=== PATIENT | female | born 1940 | race Caucasian/White ===

== ENCOUNTER → 2017-07-18 15:27 | Outpatient (CLI) | payer SELFPAY ==
--- NOTE | 2017-07-18 15:34 | RAD_ITS ---
STUDY: X-RAY - PELVIS AND LEFT HIP REASON FOR EXAM: Female, 77 years old. Pain TECHNIQUE: Radiological exam, hip, unilateral, with pelvis when performed; 2 or 3 views. 3 views obtained. COMPARISON: None. FINDINGS: There is a non-specific bowel gas pattern. Normal visualized soft tissue structures. There is diffuse demineralization of the osseous structures. There is narrowing with cortical sclerosis and osteophyte formation of the sacroiliac joint consistent with degenerative osteoarthritic changes. Normal bilateral superior and inferior pubic rami. Normal pubic symphysis. Normal bilateral ischial tuberosities. There are osteoarthritic changes of the femoral head with marginal osteophyte formation. Normal acetabulum. is severe articular joint space narrowing of the hip. Extra articular calcifications noted adjacent to the greater trochanter, likely sequela from previous trauma. Arthritic changes also noted in the right hip but they are not as severe as those noted in the left. RAD/Hip 2-3 Views with Pelvis IMPRESSION: Diffuse demineralization of the osseous structures with severe left hip arthrosis and age consistent right hip and SI joint arthrosis. No demonstrated fracture or suspicious osseous lesion. However, hip and pelvic fractures in patients of this age can be subtle, if there is strong clinical concern of a fracture, recommend further evaluation with CT Electronically Signed: Davon Rogel MD at 8:57 EDT , Service support ,
--- NOTE | 2017-07-18 15:35 | RAD_ITS ---
STUDY: X-RAY - LEFT FEMUR REASON FOR STUDY: Female, 77 years old. Pain TECHNIQUE: Radiological exam, femur, minimum 2 views 5 views obtained COMPARISON: None. FINDINGS: Normal visualized femur. Extra articular calcifications noted adjacent to the greater trochanter of the femur likely sequela from previous trauma.There is no demonstrated fracture or destructive process. There are atherosclerotic vascular calcifications. RAD/Femur Min 2 Views IMPRESSION: Degenerative changes no demonstrated fracture or suspicious osseous lesion Electronically Signed: Davon Rogel MD at 8:56 EDT , Service support ,
== END ==
PROVIDERS: Family Provider Family Medicine; PCP Family Medicine; Visit Provider Family Medicine
DX: M79.605 Pain in left leg (principal); M25.552 Pain in left hip
CPT/HCPCS: 73502; 73552

== ENCOUNTER → 2017-08-04 08:50 | Outpatient (CLI) | payer SELFPAY ==
--- NOTE | 2017-08-04 08:56 | CT_ITS ---
STUDY: CT LEFT HIP WITHOUT CONTRAST REASON FOR EXAM: Female, 77 years old. Left groin pain and left hip pain since March. No known injury. RADIATION DOSAGE (If Supplied By Facility): CTDIvol = ( 35.43 ) mGy, DLP = ( 1043.72 ) mGycm TECHNIQUE: Transaxial imaging of the left hemipelvis was performed without oral contrast, and without intravenous administration of contrast material. Coronal and sagittal images of the hip were constructed. Individualized dose optimization techniques were used for this CT. COMPARISON: None. FINDINGS: There is moderate to severe left hip joint space narrowing. There is prominent osteophyte formation arising from the base of the left femoral head. There is osteophytic spurring of the left acetabulum as well as mild sclerosis of the superior articular surface. No demonstrated fracture or destructive bone lesion involving osseous structures of the visualized left hemipelvis. There is no demonstrated diastases of the left sacroiliac joint or the pubic symphysis. There is a 6.4 x 1.7 x 1.7 cm low-attenuation structure centrally located within the belly of the left iliopsoas muscle, possibly representing intramuscular hematoma or seroma. There are dystrophic soft tissue calcifications within subcutaneous fat of the left buttocks region. There are atherosclerotic calcifications of the distal abdominal aorta and visualized left iliac arteries. CT/Extremity Lower without Contra IMPRESSION: Intramuscular hematoma or seroma of the left iliopsoas muscle. 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 Electronically Signed: Lj Jose MD at 7:41 EDT , Service support ,
== END ==
PROVIDERS: Family Provider Family Medicine; PCP Family Medicine; Visit Provider Family Medicine
DX: M16.12 Unilateral primary osteoarthritis, left hip (principal)
CPT/HCPCS: 73700

== ENCOUNTER → 2018-01-14 12:48 | Outpatient (CLI) | payer SELFPAY ==
[2018-01-02 14:46] VITALS: BMI 31.8
--- NOTE | 2018-01-14 12:49 | ECHOD_ITS ---
Reason For Study: Pre Op Procedure This was a 2D Doppler, Color Flow transthoracic echocardiogram. Exam performed in department. Left Ventricle Normal LV size. Left ventricular systolic function is normal. The estimated ejection fraction is 65 %. Stage 1 diastolic dysfunction. No regional wall motion abnormalities noted. Right Ventricle Normal RV size. Normal systolic function. Atria The left atrium is mildly enlarged. Normal right atrium. Mitral Valve Normal mitral valve. Mild-Moderate (1-2+) eccentric mitral valve insufficiency. Tricuspid Valve Normal tricuspid valve. Mild tricuspid valve insufficiency. Pulmonary artery systolic pressure is 38 mmHg. Aortic Valve Trisinus/trileaflet aortic valve. Mild focal aortic valve calcification. Peak aortic valve gradient 41 mmHg. Mean aortic valve gradient 19 mmHg. Mild to moderate aortic stenosis. Calculated aortic valve area (continuity equation) is 1.1 cm2. Pulmonic Valve Normal pulmonic valve. Great Vessels Normal aortic root. The pulmonary artery is normal size. Normal inferior vena cava. Pericardium/Pleural No pericardial effusion. MMode/2D Measurements & Calculations LVIDd: 3.8 cm IVSd: 0.91 cm LVOT diam: 2.0 cm LVIDs: 2.2 cm LVPWd: 1.0 cm LVOT area: 3.0 cm2 RVDd: 2.9 cm FS: 41.7 % Ao root diam: 3.4 cm LAV(MOD-bp): 68.4 ml Aortic Valve Planimetry: 1.5 cm2 ACS: 1.1 cm LAV(MOD-bp) Indexed: 39.1 ml/m2 LA dimension: 3.8 cm LAV(MOD-sp2): 75.1 ml LAV(MOD-sp4): 61.4 ml LA A4 area: 21.3 cm2 RA A4 area: 17.6 cm2 Time Measurements MV dec time: 0.20 sec Doppler Measurements & Calculations MV E max zay: 101.9 cm/sec Lat Peak E' Zay: 12.6 cm/sec Med Peak E' Zay: 7.9 cm/sec MV A max zay: 111.6 cm/sec E/E' lat: 8.1 E/E' med: 12.9 MV E/A: 0.91 MV V2 max: 111.7 cm/sec MV P1/2t max zay: 111.7 cm/sec Ao V2 max: 323.3 cm/sec MV max P.0 mmHg MV P1/2t: 108.6 msec Ao max P.8 mmHg MV V2 mean: 62.9 cm/sec MV dec slope: 301.4 cm/sec2 Ao V2 mean: 194.8 cm/sec MV mean P.8 mmHg Ao mean P.6 mmHg MV V2 VTI: 43.1 cm MVA(P1/2t): 2.0 cm2 Ao V2 VTI: 70.3 cm MVA(VTI): 2.0 cm2 RISHABH(I,D): 1.2 cm2 RISHABH(V,D): 1.1 cm2 LV V1 max: 119.2 cm/sec MR max zay: 626.2 cm/sec SV(LVOT): 87.3 ml LV V1 max P.7 mmHg MR max P.8 mmHg LV V1 mean P.9 mmHg MR mean zay: 522.8 cm/sec LV V1 mean: 78.6 cm/sec MR mean P.1 mmHg LV V1 VTI: 28.9 cm MR VTI: 244.6 cm PA V2 max: 111.7 cm/sec TR max zay: 293.1 cm/sec TR max P.4 mmHg Interpretation Summary Normal LV size. Left ventricular systolic function is normal. The estimated ejection fraction is 65 %. Stage 1 diastolic dysfunction. The left atrium is mildly enlarged. Mild-Moderate (1-2+) eccentric mitral valve insufficiency. Mild tricuspid valve insufficiency. Mild to moderate aortic stenosis. Calculated aortic valve area (continuity equation) is 1.1 cm2. Ordering Physician: Abundio Juarez Referring Physician: Abundio Juarez Performed By: Osito Dill RCS
== END ==
PROVIDERS: Family Provider Family Medicine; PCP Family Medicine; Referring Provider Family Medicine; Visit Provider Family Medicine
DX: Z01.810 Encounter for preprocedural cardiovascular examination (principal); R01.1 Cardiac murmur, unspecified
CPT/HCPCS: 93306

== ENCOUNTER 2018-01-22 07:41 | Inpatient (IN) | payer SELFPAY ==
[2018-01-02 14:46] VITALS: BMI 31.8
--- NOTE | 2018-01-14 12:59 | PCM.HP.BLA ---
History and Physical DATE OF SURGERY: 01/22/2018 SCHEDULED PROCEDURE: Left Total Hip Arthroplasty HISTORY OF PRESENT ILLNESS: This is a 77-year-old female who has been having ongoing pain in her left hip since March 2017. Patient states her pain reaches high as an 8/10. Pain is primarily increased with weightbearing. She does have start up pain. Pain is sharp and stabbing. She does complain of left groin pain. Also complains of anterior thigh pain. Pain is increased walking. Patient has difficult time with activities of daily living including getting dressed and doing housework. Patient has been through conservative measures consisting of rest, heat, elevation with no relief. Patient has had 1 previous intra-articular left hip injection with no relief in symptoms. Patient has a medical history pertinent for hypertension. She denies previous surgery on the left hip. She has been using a cane and walker due to the left hip pain. Patient currently is getting surgical clearance from her primary care physician Dr. Juarez. She is scheduled to get an echocardiogram. Patient currently denies chest pain, shortness of breath, fevers chills, or recent infection. REVIEW OF SYSTEMS: ROS: Const: Denies change in appetite, fever and weight change. CV: Denies chest pain, heart murmur and irregular heartbeat. Resp: Denies cough, pneumonia, shortness of breath, tuberculosis and wheezing. GI: Denies constipation, diarrhea, heartburn, nausea, rectal itching, bloody stools and vomiting. : Denies incontinence. Musculo: Denies leg swelling, pain, trouble walking and weakness. Skin: Denies Raynaud's, history of shingles and tattoo. Neuro: Reports ambulatory dysfunction but denies dizziness, numbness/tingling and tremor. Psych: Denies anxiety, insomnia and stress. Duy/Lymph: Denies anemia, bleeding/bruising tendency and past transfusion. Reviewed, no changes. PAST MEDICAL HISTORY: Advance Care Plan: No Advance Directives Effective Date: 12/17/2017 PMH: Medical Problems: High Blood Pressure Accidents: None Surgical Hx: Hernia Repair Anesthesia Complications: None Assistive Devices: Dentures, Glasses, Cane Reviewed, no changes. SOCIAL HISTORY: SH: Marital: .Occupation: Retired.Work Status: Retired.Hand Dominance: Right-handed. Personal Habits: Cigarette Use: Never Smoked Cigarettes.Smokeless Tobacco: Never Used Smokeless Tobacco.E-Cigarette Use: Smoker, current status unknow.Alcohol: Denies use.Drug Use: Denies Use.Enjoy Exercising: Daily. Reviewed, no changes. VITALS: Ht: 56.5 Wt: 158lb Wt k.669 BMI: 34.8 BP: 138/84 Pulse: 60 Resp: 16 T: 97.6 T: 36.4C ALLERGIES: No Known Drug Allergy MEDICATIONS: Lisinopril 5 mg 1po qday, Beta Carotene 37247 Unit 1po qday, Vitamin E 400 Unit 1po qday, B Complex 1po qday, Coq10 60 mg 1po qday, Calcium 600 600 mg 1po qday, Magnesium 200 mg 1po qday, Potassium 99 mg 1po qday, Vitamin D3 2000 Unit 1po qday PRE-OP EXAM: General appearance:NORMAL Other: Eyes: Conjunctivae and lids: NORMAL Pupils: ERR Ears, Nose, Mouth, and Throat: NORMAL Other: Inspection of lips, teeth and gums: NORMAL Other: Neck: Examination of neck: no masses noted. Respiratory: Assessment of respiratory effort: NORMAL Other: Auscultation of lungs: clear to auscultation no wheezes, rhonchi or rales. Cardiovascular: Auscultation of heart: regular rate and rhythm, systolic murmur Exam of carotid arteries: NORMAL Other: Gastrointestinal: Exam of abdomen: soft, nontender, nondistended bowel sounds present. PHYSICAL EXAMINATION: Patient walks with an antalgic gait. Left hip is cool to touch without erythema. Left hip range of motion: 90 flexion, 10 internal rotation, external rotation 10. Pain is reproduced with range of motion of the left hip. She has 3+/5 hip strength. Sensation intact to light touch. Neurovascularly intact. IMAGING STUDIES: Of the left hip reveal severe joint space narrowing with subchondral sclerosis and osteophyte formation consistent with severe osteoarthritis and femoral head collapse and flattening. There is a short varus neck. This calcifications lateral to the greater trochanter. CT scan from [facility] shows severe joint space narrowing with subchondral sclerosis and osteophyte formation. Calcifications in the subcutaneous fatty tissue lateral to the greater trochanter on CT scan appear to be superficial to the fascia IMPRESSION: 1. Severe left hip osteoarthritis 2. Hypertension PLAN: Dr. Rodriguez Shaikh did discuss and review with the patient all treatment options including surgical versus nonsurgical options. Patient does wish to proceed with the above-stated procedure. Potential risks, benefits, and complications of the procedure were discussed in detail including but not limited to , infection, nerve and blood vessel damage, persistent pain, numbness, tingling, paresthesias, blood clot, pulmonary embolism, and requirement for possible further surgery. The patient expressed full understanding and has no further questions for the doctor. Patient does agree to proceed with the above-stated procedure and has signed the surgery consent form. Patient is currently scheduled to undergo an echocardiogram and preoperative testing. Clearance will be dependent upon patient's echocardiogram. She currently denies any chest pain or shortness of breath. This dictation was created using voice recognition software. Phonetic and/or grammatical errors may exist.. ___ I have re-examined the patient. There are no clinical changes since date of exam. ___ See progress notes for changes. ___ Dictated on admission Date: Time: Signature:
[2018-01-14 14:33] VITALS: BP 143/71; PULSE 68; RESP 16; TEMP 36.6; O2SAT 98; BMI 35.4
--- NOTE | 2018-01-14 15:14 | SDCEKG_ITS ---
Test Reason : Blood Pressure : / mmHG Vent. Rate : 057 BPM Atrial Rate : 057 BPM P-R Int : 178 ms QRS Dur : 096 ms QT Int : 444 ms P-R-T Axes : 059 016 049 degrees QTc Int : 432 ms Sinus bradycardia Nonspecific ST and T wave abnormality Abnormal ECG Confirmed by RENEE RAMOS, IVON ([id number]), purchasing expeditor JESSICA ALVARADO ([id number] on 01/18/2018 10:49:48 AM Referred By: Rodriguez Shaikh Confirmed By:IVON DURAN MD
[2018-01-14 15:43] LABS: Absolute Lymphocyte Count 1.64 X10^3/ul (0.83-4.51); Absolute Neutrophil Count 3.5 X10^3/uL (2.0-7.7); Basophil# 0.05 X10^3/uL; Basophil% 0.9 % (0-1); Eosinophils% 3.4 % (0-5); Hematocrit 36.5 % (37-47); Hemoglobin 12.2 g/dl (12.0-15.0); Lymphocyte # 1.64 X10^3/ul (4.0); Lymphocyte % 27.9 % (19-41); Mean Corp Hgb Conc 33.4 g/gl (32-36); Mean Corpuscular Hgb 29.8 pg (27.0-32.0); Mean Corpuscular Volume 89.2 fL (81-99); Mean Platelet Vol. 10.4 fl (6.2-12.0); Monocyte# 0.53 X10^3/uL; Neutrophil # 3.45 X10^3/uL (2.7-7.7); Neutrophil % 58.6 % (47-70); Platelet Count 210 K/mm3 (150-450); RBC Distribution Width CV 12.3 % (11.6-14.6); RBC Distribution Width SD 39.7 fl (35.1-43.9); Red Blood Count 4.09 M/mm3 (4.2-5.4); White Blood Count 5.9 K/mm3 (4.4-11.0)
[2018-01-14 16:09] LABS: POSITIVE COUNT NO; POSITIVE DIFFERENTIAL NO; POSITIVE MORPHOLOGY NO
[2018-01-14 16:25] LABS: Anion Gap 4 (5-15); BUN 14 mg/dL (7-18); BUN/Creat Ratio 20.4 RATIO (10-20); Calcium,Total 8.7 mg/dL (8.5-10.1); Chloride 102 mmol/L (98-107); Creatinine, Serum 0.68 mg/dL (0.55-1.02); EST Glomerular Filtration Rate 88 mL/min (>60); Est Glom Filt Rate - Afr Amer 106 mL/min (>60); Glucose 102 mg/dL (74-106); Potassium 3.5 mmol/L (3.5-5.1); Sodium Level 138 mmol/L (136-145)
[2018-01-22] VITALS (10 sets, daily range): BP systolic 104–197; BP diastolic 63–90; PULSE 55–90; RESP 16–18; TEMP 36.2–37.2; O2SAT 95–100; BMI 35.4
--- NOTE | 2018-01-22 07:09 | RAD_ITS ---
STUDY: X-RAY - LEFT HIP REASON FOR EXAM: Female, 77 years old. Status post left total hip replacement. TECHNIQUE: 2 views of the hip. COMPARISON: None. FINDINGS: The patient is status post left total hip replacement. There is normal alignment. Postoperative soft tissue changes. RAD/Hip Min 2 Views (Portable) IMPRESSION: Status post left total hip replacement. There is good alignment. Postoperative soft tissue changes. Electronically Signed: Delvin Paz MD at 15:13 EST Tel [phone], Service support ,
[2018-01-22] MEDS: Celecoxib 200 MG Capsule 400 MG PO (08:22)
[2018-01-22] MEDS: Acetaminophen 500 MG Tablet 1000 MG PO ×3 (08:23→21:47)
--- NOTE | 2018-01-22 08:29 | PCM.OPRPT ---
Report of Operation Date of Procedure: 01/22/18 Pre-Operative Diagnosis: Left hip primary osteoarthritis Post-Operative Diagnosis: Left hip primary osteoarthritis Surgery/Procedure Performed:: Left direct anterior total hip replacement Description of Surgical Findings:: Stable hip with equal leg lengths social media marketer: Will Wagner Type of Anesthesia:: Spinal Anesthesiologist: Ranjit Arteaga Special Medications: 2 g Ancef, 1 g TXA at incision, 1 g TXA closure, 10 mg Decadron, joint cocktail (5 mg Duramorph, 30 mL of 0.5% Ropivicaine, 1000 units of epinephrine, 30 mg of Toradol) Specimen's removed: Bony cuts Estimated Blood Loss (mL): 200 Fluids Replaced: 600 milliliters crystalloid Description of Procedure: Components used: 1. Accolade 2 [place] femoral stem size 6 127? 2. Phenix trident acetabular shell size 48 mm 3. [place] X3 polyethylene D 4. [place] Biolox delta 36mm, -2.5mm femoral head Brief history operative indications: 77 yo F who failed conservative measures for their hip osteoarthritis. X-rays were consistent with osteoarthritis including joint space narrowing, osteophyte formation and subchondral cysts. Total hip replacement was discussed with the patient with risks and benefits including but not limited to blood loss, DVTs, PEs, neurovascular damage, dislocation, general risks of anesthesia including loss of life. Patient demonstrated an understanding medical clearance is obtained the patient was consented for surgery. Procedure: On the date of procedure the patient's L hip was marked in the preoperative area. Patient was then taken back to the operating room where anesthesia assumed control of the C-spine and airway and administered anesthetic. Patient was transferred to the operating table and placed in the supine position. The hips were placed at the break of the bed and a sacral bump was placed. The L lower extremity was then prepped out in a sterile fashion using chlorhexidine while the surgeon scrubbed. The PA was vital in the positioning of the patient. Upon reentering the room the L lower extremity was draped in the standard orthopedic fashion and the incision was marked. A timeout was called and everyone agreed upon the side, the site, the procedure be performed, antibody given, and patient's identity. At this time incision was made through skin, subcutaneous tissue, and fat down to fascia. The fascia was then incised and the TFL was retracted laterally. A retractor was placed on the lateral border of the femoral neck. Attention was directed to the inferior portion of the approach and all crossing vessels were identified and appropriately coagulated. A retractor was then placed on the medial portion of the femoral neck. The anterior capsule was then cleared of all soft tissue and then H shaped capsulotomy was made. The retractors were then placed inside the capsule. The femoral neck was identified and a cleanup cut was made. At this time a power corkscrew was used to remove the femoral head. Attention was then turned toward the acetabulum where the soft tissues were appropriately retracted and the acetabulum was sequentially reamed to 48 mm. A 48 mm cup was then selected and impacted into place. Acetabular liner was impacted into place and locking mechanism was verified. The position of the acetabular cup was then verified under live fluoroscopy. We are not able to readily identify the calcified area upon approach superior to the femoral neck on preoperative x-rays. Upon checking the cup we were able to identify this area was in the area of the abductors. It appeared to be a portion of the calcified abductor tendon or muscle. We elected not to debride it at this time. It was palpated and not feel to be a free bone fragment/free body. Attention was then turned to the femur. Soft tissue releases on the medial and lateral femoral neck were appropriately done, the leg was externally rotated and lateralized. A Barillas retractor was placed medially and proximally to the greater trochanter this allowed appropriate visualization and exposure of the femoral canal. Rongeour was then used to remove excess lateral bone. A canal finder and entry broach were used to open the proximal canal. Once we verified we were down the femoral canal we subsequently broached up to a size 5 femur. The appropriate neck was placed in the previously selected head was trialed with a -2.5 mm neck. Traction was pulled and the hip was reduced with internal rotation. Once it was appropriately reduced and stability was checked. There was minimal shuck, equal leg lengths and appropriate stability with hyperextension and external rotation as well as with 90? flexion and internal rotation. Fluoroscopy was then also used to verify the position of the components and leg lengths using the contralateral side for comparison. The trial components were then dislocated the proximal femur was again exposed and the components were removed from the wound. The final components were verified and opened. The wound was copiously irrigated out with normal saline. The acetabulum was checked for any residual debris. The final components were placed and impacted. Traction and internal rotation were again used to reduce the hip. After adequate reduction the hip remained stable with appropriate leg lengths. The final components were once again checked with live fluoroscopy and were found to be satisfactory. The wound was then copiously irrigated with normal saline once more, and hemostasis was obtained. Closure was then done using #1 Vicryl runner to close the fascia. A 2-0 vicryl interuppted sutures were used to close the subcutaneous skin. A 3-0 Monocryl and Steri-Strips were used for final skin closure. A Silverlon dressing was placed. Patient was awakened by anesthesia and transferred to the rmaud. Patient was then transferred to the PACU for recovery. Postoperative plan: Patient will get 24 hours postop antibiotics. Patient will get in-house physical therapy and will be weight-bear as tolerated. Patient will follow up in office in 2 weeks for a wound check and x-rays. During the course of the procedure the physician physician assistant psychiatry played a vital role. His intimate knowledge of my steps in the procedure aided in safe and expedient completion of the procedure. The PA played a vital rolls in positioning particularly in obtaining the appropriate positioning of the sacral bump. The PA was also vital in the retraction of soft tissues during the exposure and especially the femoral work as this is a vital part of the procedure to prevent complications and fractures. The PA was also vital and protecting soft tissues during times of bony cuts and reaming. He also played a vital role in closure with my direct supervision. The PA was also important during reduction and dislocation of the joint and trials intraoperatively. Grafts/Implants Used: Accolade 2, Trident 2 - Complications None - Admit VTE Documentation VTE Present on Admission: No VTE Mechan Device Prophylaxis: SCD's, Thigh High YUKI Hose VTE Pharm Prophylaxis ordered?: Yes
[2018-01-22] MEDS: Lactated Ringers 1,000 ML 999 ML IV (08:50)
[2018-01-22] MEDS: Cefazolin 2 GM in 0.9% Normal Saline 100 ML IV (09:28)
--- NOTE | 2018-01-22 09:45 | RAD_ITS ---
STUDY: X-RAY - LEFT HIP REASON FOR EXAM: Female, 77 years old. Total hip arthroplasty. TECHNIQUE: Fluoroscopic assistance was provided to Dr. Shaikh. 1 fluoroscopic spot view of the hip is submitted. FLUOROSCOPY TIME: 8 seconds. COMPARISON: AP pelvis and 2 additional views of the left hip July 18, 2017. FINDINGS: Patient has undergone left total hip arthroplasty. Following resection of the femoral head and neck, a metal bipolar hip prosthesis was placed. The acetabular and femoral components appear well seated, and in anatomic alignment. Gas lucencies overlapping the hip are consistent with the surgical wound. There is no demonstrated acute fracture. Normal visualized superior and inferior pubic rami and ischial tuberosities. RAD/Hip 1 view with Pelvis IMPRESSION: Fluoroscopic guidance for left total hip arthroplasty. Electronically Signed: Delvin Paz MD at 8:25 EST Tel [phone], Service support ,
[2018-01-22] MEDS: Scopolamine 1mg/72hr Patch 1 PATCH TD (11:41)
[2018-01-22] MEDS: Lactated Ringers 1,000 ML 125 ML IV ×2 (13:10→21:52)
[2018-01-22] MEDS: Calcium (Elemental) 500 MG Tablet PO (14:15)
[2018-01-22] MEDS: hydroCHLOROthiazide 12.5mg 12.5 MG PO (14:15)
[2018-01-22] MEDS: Famotidine 20 MG Tablet PO (14:15)
[2018-01-22] MEDS: Lisinopril 20 MG Tablet PO (14:16)
[2018-01-22] MEDS: Senna/Docusate Sodium 1 Tablet 2 TABLET PO ×2 (14:16→21:47)
[2018-01-22] MEDS: Aspirin 81 MG TAB.CHEW PO (17:09)
[2018-01-22] MEDS: oxyCODONE 5 MG Tablet PO ×2 (17:10→21:52)
[2018-01-22] MEDS: Cefazolin 1 GM/50 ML BAG IV (17:12)
[2018-01-23] MEDS: Cefazolin 1 GM/50 ML BAG IV (01:18)
[2018-01-23 03:00] VITALS: BP 138/82; PULSE 87; RESP 16; TEMP 37.1; O2SAT 98
[2018-01-23 05:39] LABS: Hematocrit 30.6 % (37-47); Hemoglobin 10.3 g/dl (12.0-15.0); Mean Corp Hgb Conc 33.7 g/gl (32-36); Mean Corpuscular Hgb 29.9 pg (27.0-32.0); Mean Corpuscular Volume 88.7 fL (81-99); Mean Platelet Vol. 10.5 fl (6.2-12.0); Platelet Count 171 K/mm3 (150-450); RBC Distribution Width CV 12.5 % (11.6-14.6); RBC Distribution Width SD 39.3 fl (35.1-43.9); Red Blood Count 3.45 M/mm3 (4.2-5.4); White Blood Count 11.4 K/mm3 (4.4-11.0)
[2018-01-23] MEDS: oxyCODONE 5 MG Tablet PO (05:57)
[2018-01-23] MEDS: Acetaminophen 500 MG Tablet 1000 MG PO ×2 (05:57→13:19)
[2018-01-23 05:59] LABS: Scan Indicated on CBC? Y/N NO
[2018-01-23 06:01] LABS: Anion Gap 10 (5-15); BUN 13 mg/dL (7-18); Calcium,Total 8.2 mg/dL (8.5-10.1); Chloride 99 mmol/L (98-107); Creatinine, Serum 0.68 mg/dL (0.55-1.02); EST Glomerular Filtration Rate 88 mL/min (>60); Est Glom Filt Rate - Afr Amer 106 mL/min (>60); Glucose 112 mg/dL (74-106); Potassium 3.7 mmol/L (3.5-5.1); Sodium Level 136 mmol/L (136-145)
--- NOTE | 2018-01-23 06:37 | PCM.PN.ORT ---
Subjective: The patient was sitting in bedside chair upon examination. Patient denies any chest pain, shortness of breath, dizziness, lightheadedness, nausea or vomiting, or calf pain. Pain is controlled on medications. No adverse overnight events. Overall patient is doing very well. Patient is requesting to go home today. Nursing states patient has been doing well. Objective: Vital signs stable and afebrile. Patient is able to plantarflex and dorsiflex actively. Sensation is intact to light touch to saphenous, sural, superficial and deep peroneal, and tibial distribution. Dressing is clean dry and intact. Negative Homans bilaterally, negative signs and symptoms of DVT. - Physical Exam General: Alert, Oriented x3, Cooperative, No apparent distress Vital Signs Temp Pulse Resp BP Pulse Ox 98.7 F 87 16 138/82 H 98 01/23/18 03:00 01/23/18 03:00 01/23/18 03:00 01/23/18 03:00 01/23/18 03:00 Oxygen Delivery Method Room Air Weight: 72.9 kg Body Mass Index (BMI) 35.4 Intake and Output for Last 24 Hours 01/21/18 01/22/18 01/23/18 23:59 23:59 23:59 Intake Total 2830 / 2830 2254 / 2254 Output Total 200 / 200 700 / 700 Balance 2630 / 2630 1554 / 1554 Laboratory Tests Past 24 Hrs 01/23/18 01/23/18 05:10 05:10 WBC 11.4 H RBC 3.45 L Hgb 10.3 L Hct 30.6 L MCV 88.7 MCH 29.9 MCHC 33.7 RDW 12.5 RDW Differential 39.3 Plt Count 171 MPV 10.5 Sodium 136 Potassium 3.7 Chloride 99 Carbon Dioxide 27.0 Anion Gap 10 BUN 13 Creatinine 0.68 Estim Creat Clear Calc 52.50 Est GFR (MDRD) Af Amer 106 Est GFR (MDRD) Non-Af 88 BUN/Creatinine Ratio 19.0 Glucose 112 H Calcium 8.2 L Medical Necessity - Tobacco Use Smoking Status: Never smoker Assessment/Plan 1. S/P left direct anterior total hip arthroplasty POD #1 2. Continue Pain Medications: Tylenol and OxyIR 3. DVT Prophylaxis: Aspirin 81 mg twice daily with food for 4 weeks postoperatively 4. PT/OT: Weightbearing as tolerated 5. H & H: 10.3/30.6, asymptomatic 6. Reactive leukocytosis: Currently 11.4, afebrile. Patient did receive Decadron intraoperatively 7. Encouraged Incentive Spirometry 8. Disposition: Plan is for possible discharge home today if pain is controlled and patient tolerates physical therapy. Prescriptions will be E scribed to patient's primary pharmacy. Patient will follow-up per postop instructions.
--- NOTE | 2018-01-23 06:45 | PCM.DC.THR ---
Discharge Activity: May Not Drive - while taking narcotic pain medications. May shower in (days): 1 - Turned dressing away from water Ice area for (Minutes): 20 - Every 1-2 hours while awake Weight Bearing Status: Weight bearing as tolerated Elevate: Operative Extremity Additional Activity Instructions:: Wear elastic stockings for 2 weeks. DO NOT use alcohol with narcotic pain medication. DO NOT make important decisions while taking narcotic medication. If you have problems with taking your medication (rash, itching, nausea, etc.) call the office at once. Call your doctor if your incision/area has: Increased Pain/ Swelling, Increased Redness, Foul Smelling Discharge Call your doctor if you observe: Fever of 101 or Higher Remove Dressing in (days):: 4 - Okay to remove dressing on January 27, 2018 Additional Instructions: Follow [facility] postop instructions Do not take [id number] vitamins and supplements for the next 2 weeks. Do not take any anti-inflammatories while on the meloxicam. Allergies/Adverse Reactions: Allergies No Known Allergies Allergy (Verified 01/14/18 14:18) Medications to take at Discharge Amlodipine Besylate [Norvasc] 2.5 mg PO DAILY 01/14/18 Calcium (Elemental) [Os-Gibson 500] 600 mg PO DAILY 01/14/18 Cholecalciferol (VIT D3) [Vitamin D3] 2,000 unit PO DAILY 01/14/18 Lisinopril/Hydrochlorothiazide [Zestoretic 20-12.5 mg Tablet] 1 tab PO DAILY 01/14/18 Magnesium 200 mg PO DAILY 01/14/18 Potassium (Otc) [Potassium OTC] 99 mg PO DAILY 01/14/18 Acetaminophen [Tylenol] 1,000 mg PO Q8 #90 tablet 01/23/18 Aspirin [Aspirin, Baby] 81 mg PO BIDCM #60 tab.chew 01/23/18 Famotidine [Pepcid] 20 mg PO DAILY #30 tablet 01/23/18 Meloxicam [Mobic] 7.5 mg PO BID #60 tablet 01/23/18 Oxycodone [Oxyir] 5 - 10 mg PO Q4H PRN PRN 5 Days #60 tablet 01/23/18 Senna/Docusate Sodium [Senokot-S] 2 tablet PO BID #20 tablet 12/19/18 The following prescriptions were given: Oxycodone [Oxyir] 5 - 10 mg PO Q4H PRN PRN 5 Days #60 tablet PRN Reason: Mod-Severe Pain (-11/14) Acetaminophen [Tylenol] 1,000 mg PO Q8 #90 tablet Famotidine [Pepcid] 20 mg PO DAILY #30 tablet Aspirin [Aspirin, Baby] 81 mg PO BIDCM #60 tab.chew Meloxicam [Mobic] 7.5 mg PO BID #60 tablet Senna/Docusate Sodium [Senokot-S] 2 tablet PO BID #20 tablet Primary Care Physician: Abundio Juarez DO [Primary Care Provider] - Test Results: Test results from this visit will be discussed in further detail at your follow-up appointment, if applicable. Please Follow Up With: Physical Therapy When: 01/25/18 Please Follow Up With: Will Wagner PA-C When: 02/06/18 @ 10:15 am
[2018-01-23 08:10] VITALS: BP 116/54; PULSE 48; RESP 18; TEMP 36.8; O2SAT 95
[2018-01-23] MEDS: Senna/Docusate Sodium 1 Tablet 2 TABLET PO (08:15)
[2018-01-23] MEDS: amLODIPine 2.5 MG Tablet PO (08:16)
[2018-01-23] MEDS: Famotidine 20 MG Tablet PO (08:16)
[2018-01-23] MEDS: Aspirin 81 MG TAB.CHEW PO (08:17)
[2018-01-23] MEDS: Calcium (Elemental) 500 MG Tablet PO (08:19)
[2018-01-23] MEDS: Meloxicam 7.5 MG Tablet PO (09:40)
--- NOTE | 2018-01-23 10:40 | CASEMGMT ---
RN CRAIG Face to Face with patient for initial transition planning/care coordination assessment. RN CM introduced self and role at [facility]. Patient sitting in chair, alert and oriented, family at bedside. Patient willing to participate in assessment and is able to answer all questions appropriately. Care providers, pharmacy, and demographics verified. Patient wishes to discharge home with [facility] for therapy. Referral made to [facility] and they are able to accept the patient. Patient states she has no further needs or concerns at this time. CM to follow for discharge planning needs that may arise. PCP: Abundio Juarez Specialists: None Preferred Pharmacy: [facility] Insurance: [employer] Prescription Benefit: None Living Will/HPOA: None LNOK: Daughter, sons Living Arrangements: Patient lives with daughter in house with bed and bath on first floor. Transportation: Uses a high lift driver DME/HHC: Patient has cane, walker, and BSC at home. Would like home therapy. Patient setup with [facility] Disposition Plan: Patient to discharge home with home therapy, family support, and follow-up plans in place. Tiera REDDY, RN, CM
[2018-01-23 13:24] VITALS: BP 111/56; PULSE 57; RESP 18; TEMP 36.8; O2SAT 94
--- OUTSIDE RECORDS SUMMARY | 2018-04-25 12:39 | XMS RPT_ITS ---
:1940 Author Organization [facility] Support Name Relationship Address Phone JENNYKRYSTLE Unavailable [address] + [place] [address] ALVARADO JACOBY Unavailable [address] + [place] [address] R Unavailable Unavailable Unavailable KRYSTLE ALVARADO Unavailable [address] + [place] [address] JENNY JACOBY Unavailable [address] + [place] [address] R Unavailable Unavailable Unavailable KRYSTLE ALVARADO Unavailable [address] + [place] [address] JENNY JACOBY Unavailable [address] + [place] [address] R Unavailable Unavailable Unavailable KRYSTLE ALVARADO Unavailable [address] + [place] [address] JENNY JACOBY Unavailable [address] + [place] [address] R Unavailable Unavailable Unavailable KRYSTLE ALVARADO Unavailable [address] + [place] [address] R Unavailable Unavailable Unavailable KRYSTLE ALVARADO Unavailable [address] + [place] [address] R Unavailable Unavailable Unavailable KRYSTLE ALVARADO Unavailable [address] + [place] [address] R Unavailable Unavailable Unavailable KRYSTLE ALVARADO Unavailable [address] + [facility] [place] [address] R Unavailable Unavailable Unavailable KRYSTLE ALVARADO Unavailable [address] + [facility] [place] [address] R Unavailable Unavailable Unavailable KRYSTLE ALVARADO Unavailable [address] [phone] [place] [address] R Unavailable Unavailable Unavailable KRYSTLE ALVARADO Unavailable [address] + [place] [address] R Unavailable Unavailable Unavailable Care Team Providers Name Role Phone Emeterioharshad Michael Attending Unavailable Neel, Rodriguez Referring Unavailable Brown, Abundio Attending Unavailable Brown, Abundio Referring Unavailable Brown, Abundio Primary Care Unavailable Brown, Abundio Attending Unavailable Brown, Abundio Referring Unavailable Brown, Abundio Primary Care Unavailable Brown, Abundio Attending Unavailable Brown, Abundio Referring Unavailable Brown, Abundio Primary Care Unavailable Chicorelblanche, Val Attending Unavailable Brown, Abundio Referring Unavailable Brown, Abundio Primary Care Unavailable Em Angel Attending Unavailable Brown, Abundio Attending Unavailable Brown, Abundio Referring Unavailable Brown, Abundio Attending Unavailable Brown, Abundio Referring Unavailable Neel, Rodriguez Admitting Unavailable Neel, Rodriguez Attending Unavailable Neel, Rodriguez Referring Unavailable Brown, Abundio Primary Care Unavailable Brown, Abundio Attending Unavailable Brown, Abundio Referring Unavailable Brown, Abundio Primary Care Unavailable JonasMendoza canalesril Attending Unavailable Brown, Abundio Referring Unavailable Brown, Abundio Primary Care Unavailable Brown, Abundio Consulting Unavailable PROBLEMS PROBLEMS DATE TYPE CONDITION / CODE ATTENDING STATUS SOURCE 01/23/2018 Unknown Z96.642 - Presence of Rodriguez Shaikh Active [place] left artificial hip Community joint / Hospital Z96.642(ICD-10) Repository 01/14/2018 Unknown R01.1 - Cardiac JonasMendozaHardy Active [place] murmur, unspecified / Community R01.1(ICD-10) Hospital Repository 01/30/2018 Unknown R00.1 - Bradycardia, [place], Active [place] unspecified / [facility] R00.1(ICD-10) Hospital Repository 01/30/2018 Unknown R94.31 - Abnormal [place], Active [place] electrocardiogram [facility] [ECG] [EKG] / Hospital R94.31(ICD-10) Repository 11/07/2017 Unknown M16.12 - Unilateral Brown, Abundio Active [place] primary Community osteoarthritis, left Hospital hip / M16.12(ICD-10) Repository 09/17/2017 Unknown M25.552 - Pain in left Chicore[place], Active [place] hip / M25.552(ICD-10) [facility] Repository 09/17/2017 Unknown R29.3 - Abnormal [place], Active [place] posture / [facility] R29.3(ICD-10) Hospital Repository 07/24/2017 Unknown M79.605 - Pain in left Brown, Abundio Active [place] leg / M79.605(ICD-10) [facility] [place], [place] Repository PROCEDURES PROCEDURES No Procedure Records FoundRESULTS RESULTS DISCHARGE INSTRUCTION Observed: 01/23/2018 Status: F Source: [place] 6:47 AM [facility] REPOSITORY [facility] Medical Records Department [address] [place] [address] Instructions for Home/Discharge Instructions 01/23/18 0645 MR#: [id number] Acct: [id number] Name: JR ALVARADO Rep #: [id number] : 1940 77 From: Will Wagner PA-C PCP: Abundio Juarez DO Status: ADM IN Discharge Activity: May Not Drive - while taking narcotic pain medications. May shower in (days): 1 - Turned dressing away from water Ice area for (Minutes): 20 - Every 1-2 hours while awake Weight Bearing Status: Weight bearing as tolerated Elevate: Operative Extremity Additional Activity Instructions:: Wear elastic stockings for 2 weeks. DO NOT use alcohol with narcotic pain medication. DO NOT make important decisions while taking narcotic medication. If you have problems with taking your medication (rash, itching, nausea, etc.) call the office at once. Call your doctor if your incision/area has: Increased Pain/ Swelling, Increased Redness, Foul Smelling Discharge Call your doctor if you observe: Fever of 101 or Higher Remove Dressing in (days):: 4 - Okay to remove dressing on January 27, 2018 Additional Instructions: Follow [place] [facility] postop instructions Do not take qtql-qhl-omeyiie vitamins and supplements for the next 2 weeks. Do not take any anti-inflammatories while on the meloxicam. Allergies/Adverse Reactions: Allergies No Known Allergies Allergy (Verified 01/14/18 14:18) Medications to take at Discharge Amlodipine Besylate [Norvasc] 2.5 mg PO DAILY 01/14/18 Calcium (Elemental) [Os-Gibson 500] 600 mg PO DAILY 01/14/18 Cholecalciferol (VIT D3) [Vitamin D3] 2,000 unit PO DAILY 01/14/18 Lisinopril/Hydrochlorothiazide [Zestoretic 20-12.5 mg Tablet] 1 tab PO DAILY 01/14/18 Magnesium 200 mg PO DAILY 01/14/18 Potassium (Otc) [Potassium OTC] 99 mg PO DAILY 01/14/18 Acetaminophen [Tylenol] 1,000 mg PO Q8 #90 tablet 01/23/18 Aspirin [Aspirin, Baby] 81 mg PO BIDCM #60 tab.chew 01/23/18 Famotidine [Pepcid] 20 mg PO DAILY #30 tablet 01/23/18 Meloxicam [Mobic] 7.5 mg PO BID #60 tablet 01/23/18 Oxycodone [Oxyir] 5 - 10 mg PO Q4H PRN PRN 5 Days #60 tablet 01/23/18 Senna/Docusate Sodium [Senokot-S] 2 tablet PO BID #20 tablet 01/23/18 The following prescriptions were given: Oxycodone [Oxyir] 5 - 10 mg PO Q4H PRN PRN 5 Days #60 tablet PRN Reason: Mod-Severe Pain (-11/14) Acetaminophen [Tylenol] 1,000 mg PO Q8 #90 tablet Famotidine [Pepcid] 20 mg PO DAILY #30 tablet Aspirin [Aspirin, Baby] 81 mg PO BIDCM #60 tab.chew Meloxicam [Mobic] 7.5 mg PO BID #60 tablet Senna/Docusate Sodium [Senokot-S] 2 tablet PO BID #20 tablet Primary Care Physician: Abundio Juarez DO [Primary Care Provider] - Test Results: Test results from this visit will be discussed in further detail at your follow-up appointment, if applicable. Please Follow Up With: Physical Therapy When: 01/25/18 Please Follow Up With: Will Wagner PA-C When: 02/06/18 @ 10:15 am 01/23/18 0647 <Electronically signed by Will Wagner PA-C> Date Will Wagner PA-C CC: Abundio Juarez DO CBC-COMPLETE BLOOD CNT Collected: 01/23/2018 Status: F Source: [place] NO DIFF 5:10 AM [facility] REPOSITORY TYPE CODE TESTS RESULT OUT OF RANGE REFERENCE UNITS LAB L100.1000 4.4-11.0 K/mm3 High WBC 11.4 LAB L100.1200 4.2-5.4 M/mm3 Low RBC 3.45 LAB L100.1300 12.0-15.0 g/dl Low HGB 10.3 LAB L100.1400 37-47 % Low HCT 30.6 LAB L100.1500 81-99 fL Normal MCV 88.7 LAB L100.1600 27.0-32.0 pg Normal MCH 29.9 LAB L100.1700 32-36 g/gl Normal MCHC 33.7 LAB L100.1810 11.6-14.6 % Normal RDW CV 12.5 LAB L100.1820 35.1-43.9 fl Normal RDW SD 39.3 LAB L100.1900 150-450 K/mm3 Normal PLT 171 LAB L100.2000 6.2-12.0 fl Normal MPV 10.5 Performed By: #### L100.0500 #### [facility] [address] [place], [address] BASIC METABOLIC Collected: 01/23/2018 Status: F Source: [place] PROFILE (BMP) 5:10 AM [facility] REPOSITORY TYPE CODE TESTS RESULT OUT OF RANGE REFERENCE UNITS LAB L501.0100 74-106 mg/dL High GLU 112 Result Comment: Fasting Glucose result from 100 to 125 mg/dL suggests IMPAIRED HOMEOSTASIS per A.D.A. criteria. Please note revised GLUCOSE reference range effective 2017. LAB L501.1000 7-18 mg/dL Normal BUN 13 LAB L501.1100 0.55-1.02 mg/dL Normal CREAT,SERUM 0.68 Result Comment: The validity of the calculated GFR AND GFRAA in patients over 70 years has not been determined. Clinical correlation is essential. LAB L501.1110 >60 mL/min Normal EST GFR 88 Result Comment: Non- GFR Calc LAB L501.1115 >60 mL/min Normal EST GFR - AA 106 Result Comment: GFR Calc LAB L501.1255 ml/min Normal Estimated CRCL 52.50 LAB L501.1300 10-20 RATIO Normal BUN/CRE 19.0 LAB L501.2200 8.5-10 mg/dL Low .1 CA 8.2 LAB L501.5300 136-14 mmol/L Normal 5 NA 136 LAB L501.5600 3.5-5. mmol/L Normal 1 K 3.7 LAB L501.5900 98-107 mmol/L Normal CL 99 LAB L501.6100 21.0-3 mmol/L Normal 2.0 CO2 27.0 LAB L501.6200 5-15 Normal GAP 10 Performed By: #### L500.2500 #### [facility] [address] [facility] [place], [address] OPERATIVE REPORT Observed: 01/22/2018 Status: F Source: [place] 12:11 PM [facility] REPOSITORY [facility] Medical Records Department [address] [place] [address] Operative Report 01/22/18 0829 MR#: [id number] Acct: [id number] Name: JR ALVARADO Rep #: [id number] : 1940 77 From: Rodriguez Shaikh MD PCP: Abundio Juarez DO Status: ADM IN Y Location: [facility] [id number] Report of Operation Date of Procedure: 01/22/18 Pre-Operative Diagnosis: Left hip primary osteoarthritis Post-Operative Diagnosis: Left hip primary osteoarthritis Surgery/Procedure Performed:: Left direct anterior total hip replacement Description of Surgical Findings:: Stable hip with equal leg lengths tape editor: Will Wagner Type of Anesthesia:: Spinal Anesthesiologist: Ranjit Arteaga Special Medications: 2 g Ancef, 1 g TXA at incision, 1 g TXA closure, 10 mg Decadron, joint cocktail (5 mg Duramorph, 30 mL of 0.5% Ropivicaine, 1000 units of epinephrine, 30 mg of Toradol) Specimen's removed: Bony cuts Estimated Blood Loss (mL): 200 Fluids Replaced: 600 milliliters crystalloid Description of Procedure: Components used: 1. Accolade 2 [place] femoral stem size 6 127 2. [place] trident acetabular shell size 48 mm 3. [place] X3 polyethylene D 4. [place] Biolox delta 36mm, -2.5mm femoral head Brief history operative indications: 77 yo F who failed conservative measures for their hip osteoarthritis. X-rays were consistent with osteoarthritis including joint space narrowing, osteophyte formation and subchondral cysts. Total hip replacement was discussed with the patient with risks and benefits including but not limited to blood loss, DVTs, PEs, neurovascular damage, dislocation, general risks of anesthesia including loss of life. Patient demonstrated an understanding medical clearance is obtained the patient was consented for surgery. Procedure: On the date of procedure the patient's L hip was marked in the preoperative area. Patient was then taken back to the operating room where anesthesia assumed control of the C-spine and airway and administered anesthetic. Patient was transferred to the operating table and placed in the supine position. The hips were placed at the break of the bed and a sacral bump was placed. The L lower extremity was then prepped out in a sterile fashion using chlorhexidine while the surgeon scrubbed. The PA was vital in the positioning of the patient. Upon reentering the room the L lower extremity was draped in the standard orthopedic fashion and the incision was marked. A timeout was called and everyone agreed upon the side, the site, the procedure be performed, antibody given, and patient's identity. At this time incision was made through skin, subcutaneous tissue, and fat down to fascia. The fascia was then incised and the TFL was retracted laterally. A retractor was placed on the lateral border of the femoral neck. Attention was directed to the inferior portion of the approach and all crossing vessels were identified and appropriately coagulated. A retractor was then placed on the medial portion of the femoral neck. The anterior capsule was then cleared of all soft tissue and then H shaped capsulotomy was made. The retractors were then placed inside the capsule. The femoral neck was identified and a cleanup cut was made. At this time a power corkscrew was used to remove the femoral head. Attention was then turned toward the acetabulum where the soft tissues were appropriately retracted and the acetabulum was sequentially reamed to 48 mm. A 48 mm cup was then selected and impacted into place. Acetabular liner was impacted into place and locking mechanism was verified. The position of the acetabular cup was then verified under live fluoroscopy. We are not able to readily identify the calcified area upon approach superior to the femoral neck on preoperative x-rays. Upon checking the cup we were able to identify this area was in the area of the abductors. It appeared to be a portion of the calcified abductor tendon or muscle. We elected not to debride it at this time. It was palpated and not feel to be a free bone fragment/free body. Attention was then turned to the femur. Soft tissue releases on the medial and lateral femoral neck were appropriately done, the leg was externally rotated and lateralized. A Barillas retractor was placed medially and proximally to the greater trochanter this allowed appropriate visualization and exposure of the femoral canal. Rongeour was then used to remove excess lateral bone. A canal finder and entry broach were used to open the proximal canal. Once we verified we were down the femoral canal we subsequently broached up to a size 5 femur. The appropriate neck was placed in the previously selected head was trialed with a -2.5 mm neck. Traction was pulled and the hip was reduced with internal rotation. Once it was appropriately reduced and stability was checked. There was minimal shuck, equal leg lengths and appropriate stability with hyperextension and external rotation as well as with 90 flexion and internal rotation. Fluoroscopy was then also used to verify the position of the components and leg lengths using the contralateral side for comparison. The trial components were then dislocated the proximal femur was again exposed and the components were removed from the wound. The final components were verified and opened. The wound was copiously irrigated out with normal saline. The acetabulum was checked for any residual debris. The final components were placed and impacted. Traction and internal rotation were again used to reduce the hip. After adequate reduction the hip remained stable with appropriate leg lengths. The final components were once again checked with live fluoroscopy and were found to be satisfactory. The wound was then copiously irrigated with normal saline once more, and hemostasis was obtained. Closure was then done using #1 Vicryl runner to close the fascia. A 2-0 vicryl interuppted sutures were used to close the subcutaneous skin. A 3-0 Monocryl and Steri-Strips were used for final skin closure. A Silverlon dressing was placed. Patient was awakened by anesthesia and transferred to [facility]. Patient was then transferred to the PACU for recovery. Postoperative plan: Patient will get 24 hours postop antibiotics. Patient will get in-house physical therapy and will be weight-bear as tolerated. Patient will follow up in office in 2 weeks for a wound check and x-rays. During the course of the procedure the physician language assistant played a vital role. His intimate knowledge of my steps in the procedure aided in safe and expedient completion of the procedure. The PA played a vital rolls in positioning particularly in obtaining the appropriate positioning of the sacral bump. The PA was also vital in the retraction of soft tissues during the exposure and especially the femoral work as this is a vital part of the procedure to prevent complications and fractures. The PA was also vital and protecting soft tissues during times of bony cuts and reaming. He also played a vital role in closure with my direct supervision. The PA was also important during reduction and dislocation of the joint and trials intraoperatively. Grafts/Implants Used: Accolade 2, Trident 2 - Complications None - Admit VTE Documentation VTE Present on Admission: No VTE Mechan Device Prophylaxis: SCD's, Thigh High YUKI Hose VTE Pharm Prophylaxis ordered?: Yes 01/22/18 1211 <Electronically signed by Rodriguez Shaikh MD> Date Rodriguez Shaikh MD CC: Abundio Juarez DO; Rodriguez Shaikh MD Signed HIP MIN 2 VIEWS Observed: 01/22/2018 Status: F Source: [place] (PORTABLE) 7:12 AM [facility] REPOSITORY [facility] Imaging Services [address] [place] [address] Hip Min 2 Views (Portable) MR#: [id number] Acct: [id number] Name: JR ALVARADO Rep #: [id number] : 1940 F 77 From: Delvin Paz MD PCP: Abundio Juarez DO Status: ADM IN Study: Hip Min 2 Views (Portable) Date of Exam: 01/22/18 Exam# [id number] Ordering Dr: Rodriguez Shaikh MD STUDY: X-RAY - LEFT HIP REASON FOR EXAM: Female, 77 years old. Status post left total hip replacement. TECHNIQUE: 2 views of the hip. COMPARISON: None. FINDINGS: The patient is status post left total hip replacement. There is normal alignment. Postoperative soft tissue changes. RAD/Hip Min 2 Views (Portable) IMPRESSION: Status post left total hip replacement. There is good alignment. Postoperative soft tissue changes. Electronically Signed: Delvin Paz MD at 15:13 EST Tel [phone], Service support , CC: Abundio Juarez DO; Rodriguez Shaikh MD Quilting Supervisor: Signed HIP 1 VIEW WITH Observed: 01/22/2018 Status: F Source: [place] PELVIS 12:11 AM [facility] REPOSITORY [facility] Imaging Services [address] [place] [address] Hip 1 view with Pelvis MR#: [id number] Acct: [id number] Name: JR ALVARADO Rep #: [id number] : 1940 F 77 From: Delvin Paz MD PCP: Abundio Juarez DO Status: ADM IN Study: Hip 1 view with Pelvis Date of Exam: 01/22/18 Exam# [id number] Ordering Dr: Rodriguez Shaikh MD STUDY: X-RAY - LEFT HIP REASON FOR EXAM: Female, 77 years old. Total hip arthroplasty. TECHNIQUE: Fluoroscopic assistance was provided to Dr. Shaikh. 1 fluoroscopic spot view of the hip is submitted. FLUOROSCOPY TIME: 8 seconds. COMPARISON: AP pelvis and 2 additional views of the left hip July 18, 2017. FINDINGS: Patient has undergone left total hip arthroplasty. Following resection of the femoral head and neck, a metal bipolar hip prosthesis was placed. The acetabular and femoral components appear well seated, and in anatomic alignment. Gas lucencies overlapping the hip are consistent with the surgical wound. There is no demonstrated acute fracture. Normal visualized superior and inferior pubic rami and ischial tuberosities. RAD/Hip 1 view with Pelvis IMPRESSION: Fluoroscopic guidance for left total hip arthroplasty. Electronically Signed: Delvin Paz MD at 8:25 EST Tel [phone], Service support , CC: Abundio Juarez DO; Rodriguez Shaikh MD Quilting Supervisor: Signed 12 LEAD ELECTROCARDIOGRAM Observed: 01/18/2018 Status: F Source: [place] 10:50 AM [facility] REPOSITORY [facility] Cardiovascular Services [address] [place] [id number] EKG - [place] 01/14/181511 MR#: [id number] Acct: [id number] Name: ALVARADOJR W Rep #: [id number] : 1940 77 From: Michael Duran MD Attending Dr: Rodriguez Shaikh MD Status: PRE IN Ordering Dr: Rodriguez Shaikh MD Date: 01/14/18 Location: [place] Sex: F C Admitted: Test Reason : Blood Pressure : / mmHG Vent. Rate : 057 BPM Atrial Rate : 057 BPM P-R Int : 178 ms QRS Dur : 096 ms QT Int : 444 ms P-R-T Axes : 059 016 049 degrees QTc Int : 432 ms Sinus bradycardia Nonspecific ST and T wave abnormality Abnormal ECG Confirmed by RENEE RAMOS, MICHAEL ([id number]), newspaper editor managing JESSICA ALVARADO ([id number]) on 01/18/2018 10:49:48 AM Referred By: Rodriguez Shaikh Confirmed By:MICHAEL DURAN MD 01/18/18 1049 Date Michael Duran MD CC: Abundio Juarez DO; Rodriguez Shaikh MD Date Dictated: 01/14/181511 Date Transcribed: 01/14/181511 Quilting Supervisor: Signed CBC W/DIFF, AUTOMATED Collected: 01/14/2018 Status: F Source: [place] 3:15 PM [facility] REPOSITORY TYPE CODE TESTS RESULT OUT OF RANGE REFERENCE UNITS LAB L100.1000 4.4-11.0 K/mm3 Normal WBC 5.9 LAB L100.1200 4.2-5.4 M/mm3 Low RBC 4.09 LAB L100.1300 12.0-15.0 g/dl Normal HGB 12.2 LAB L100.1400 37-47 % Low HCT 36.5 LAB L100.1500 81-99 fL Normal MCV 89.2 LAB L100.1600 27.0-32.0 pg Normal MCH 29.8 LAB L100.1700 32-36 g/gl Normal MCHC 33.4 LAB L100.1810 11.6-14.6 % Normal RDW CV 12.3 LAB L100.1820 35.1-43.9 fl Normal RDW SD 39.7 LAB L100.1900 150-450 K/mm3 Normal PLT 210 LAB L100.2000 6.2-12.0 fl Normal MPV 10.4 LAB L100.2100 47-70 % Normal NEUT% 58.6 LAB L100.2200 19-41 % Normal LY% 27.9 LAB L100.2300 0-10 % Normal MONO% 9.0 LAB L100.2400 0-5 % Normal EO% 3.4 LAB L100.2500 0-1 % Normal BASO% 0.9 LAB L100.2550 0.0-0.9 % Normal IM GRAN % 0.200 Result Comment: IG% - Immature Granulocytes (promyelocytes, myelocytes and metamyelocytes) > 1% indicates that a LEFT SHIFT is Present. LAB L100.2620 2.0-7.7 X10 3/uL Normal Absolute Neut 3.5 LAB L100.2720 0.83-4.51 X10 3/ul Normal Absolute Lymph 1.64 Performed By: #### L100.0100 #### [facility] [address] [place], [address] BASIC METABOLIC Collected: 01/14/2018 Status: F Source: [place] PROFILE ([facility]) 3:15 PM [facility] REPOSITORY TYPE CODE TESTS RESULT OUT OF RANGE REFERENCE UNITS LAB L501.0100 74-106 mg/dL Normal GLU 102 Result Comment: Fasting Glucose result from 100 to 125 mg/dL suggests IMPAIRED HOMEOSTASIS per A.D.A. criteria. Please note revised GLUCOSE reference range effective 2017. LAB L501.1000 7-18 mg/dL Normal BUN 14 LAB L501.1100 0.55-1.02 mg/dL Normal CREAT,SERUM 0.68 Result Comment: The validity of the calculated GFR AND GFRAA in patients over 70 years has not been determined. Clinical correlation is essential. LAB L501.1110 >60 mL/min Normal EST GFR 88 Result Comment: Non- GFR Calc LAB L501.1115 >60 mL/min Normal EST GFR - AA 106 Result Comment: GFR Calc LAB L501.1255 ml/min Normal Estimated CRCL 52.50 LAB L501.1300 10-20 RATIO High BUN/CRE 20.4 LAB L501.2200 8.5-10 mg/dL Normal .1 CA 8.7 LAB L501.5300 136-14 mmol/L Normal 5 NA 138 LAB L501.5600 3.5-5. mmol/L Normal 1 K 3.5 LAB L501.5900 98-107 mmol/L Normal CL 102 LAB L501.6100 21.0-3 mmol/L Normal 2.0 CO2 32.0 LAB L501.6200 5-15 Low GAP 4 Performed By: #### L500.2500 #### [facility] [address] [place], [address] Observed: 01/14/2018 Status: F Source: [place] MRSA/SAID SCREEN 3:15 PM [facility] REPOSITORY MRSA/SAID SCRN S. AUREUS S. aureus Positive MRSA MRSA Negative Performed By: #### M100.651 #### [facility] [address] [facility], [address] ECHOCARDIOGRAM COMPLETE Observed: 01/14/2018 Status: F Source: [place] 1:55 PM [facility] REPOSITORY [facility] Cardiovascular Services [address] [place] [address] Echo Complete 01/14/18 1251 MR#: [id number] Acct: [id number] Name: JR ALVARADO Rep #: [id number] : 1940 77 From: Jarad Mcdaniel MD Attending Dr: Abundio Juarez DO Status: REG CLI Ordering Dr: Abundio Juarez DO Date: 01/14/18 Location: [facility] Sex: F C Admitted: Reason For Study: Pre Op Procedure This was a 2D Doppler, Color Flow transthoracic echocardiogram. Exam performed in department. Left Ventricle Normal LV size. Left ventricular systolic function is normal. The estimated ejection fraction is 65 %. Stage 1 diastolic dysfunction. No regional wall motion abnormalities noted. Right Ventricle Normal RV size. Normal systolic function. Atria The left atrium is mildly enlarged. Normal right atrium. Mitral Valve Normal mitral valve. Mild-Moderate (1-2+) eccentric mitral valve insufficiency. Tricuspid Valve Normal tricuspid valve. Mild tricuspid valve insufficiency. Pulmonary artery systolic pressure is 38 mmHg. Aortic Valve Trisinus/trileaflet aortic valve. Mild focal aortic valve calcification. Peak aortic valve gradient 41 mmHg. Mean aortic valve gradient 19 mmHg. Mild to moderate aortic stenosis. Calculated aortic valve area (continuity equation) is 1.1 cm2. Pulmonic Valve Normal pulmonic valve. Great Vessels Normal aortic root. The pulmonary artery is normal size. Normal inferior vena cava. Pericardium/Pleural No pericardial effusion. MMode/2D Measurements AND Calculations LVIDd: 3.8 cm IVSd: 0.91 cm LVOT diam: 2.0 cm LVIDs: 2.2 cm LVPWd: 1.0 cm LVOT area: 3.0 cm2 RVDd: 2.9 cm FS: 41.7 % Ao root diam: 3.4 cm LAV(MOD-bp): 68.4 ml Aortic Valve Planimetry: 1.5 cm2 ACS: 1.1 cm LAV(MOD-bp) Indexed: 39.1 ml/m2 LA dimension: 3.8 cm LAV(MOD-sp2): 75.1 ml LAV(MOD-sp4): 61.4 ml LA A4 area: 21.3 cm2 RA A4 area: 17.6 cm2 Time Measurements MV dec time: 0.20 sec Doppler Measurements AND Calculations MV E max zay: 101.9 cm/sec Lat Peak E' Zay: 12.6 cm/sec Med Peak E' Zay: 7.9 cm/sec MV A max zay: 111.6 cm/sec E/E' lat: 8.1 E/E' med: 12.9 MV E/A: 0.91 MV V2 max: 111.7 cm/sec MV P1/2t max zay: 111.7 cm/sec Ao V2 max: 323.3 cm/sec MV max P.0 mmHg MV P1/2t: 108.6 msec Ao max P.8 mmHg MV V2 mean: 62.9 cm/sec MV dec slope: 301.4 cm/sec2 Ao V2 mean: 194.8 cm/sec MV mean P.8 mmHg Ao mean P.6 mmHg MV V2 VTI: 43.1 cm MVA(P1/2t): 2.0 cm2 Ao V2 VTI: 70.3 cm MVA(VTI): 2.0 cm2 RISHABH(I,D): 1.2 cm2 RISHABH(V,D): 1.1 cm2 LV V1 max: 119.2 cm/sec MR max zay: 626.2 cm/sec SV(LVOT): 87.3 ml LV V1 max P.7 mmHg MR max P.8 mmHg LV V1 mean P.9 mmHg MR mean zay: 522.8 cm/sec LV V1 mean: 78.6 cm/sec MR mean P.1 mmHg LV V1 VTI: 28.9 cm MR VTI: 244.6 cm PA V2 max: 111.7 cm/sec TR max zay: 293.1 cm/sec TR max P.4 mmHg Interpretation Summary Normal LV size. Left ventricular systolic function is normal. The estimated ejection fraction is 65 %. Stage 1 diastolic dysfunction. The left atrium is mildly enlarged. Mild-Moderate (1-2+) eccentric mitral valve insufficiency. Mild tricuspid valve insufficiency. Mild to moderate aortic stenosis. Calculated aortic valve area (continuity equation) is 1.1 cm2. 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 HISTORY AND PHYSICAL Observed: 01/14/2018 Status: F Source: [place] EXAM 1:00 [facility] REPOSITORY [facility] Medical Records Department [address] [place] [address] History and Physical 01/14/18 1259 MR#: [id number] Acct: [id number] Name: JR ALVARADO Rep #: [id number] : 1940 77 From: Will Wagner PA-C PCP: Abundio Juarez, DO Status: PRE IN Y Location: [place] History and Physical DATE OF SURGERY: 01/22/2018 SCHEDULED PROCEDURE: Left Total Hip Arthroplasty HISTORY OF PRESENT ILLNESS: This is a 77-year-old female who has been having ongoing pain in her left hip since March 2017. Patient states her pain reaches high as an 8/10. Pain is primarily increased with weightbearing. She does have start up pain. Pain is sharp and stabbing. She does complain of left groin pain. Also complains of anterior thigh pain. Pain is increased walking. Patient has difficult time with activities of daily living including getting dressed and doing housework. Patient has been through conservative measures consisting of rest, heat, elevation with no relief. Patient has had 1 previous intra-articular left hip injection with no relief in symptoms. Patient has a medical history pertinent for hypertension. She denies previous surgery on the left hip. She has been using a cane and walker due to the left hip pain. Patient currently is getting surgical clearance from her primary care physician Dr. Juarez. She is scheduled to get an echocardiogram. Patient currently denies chest pain, shortness of breath, fevers chills, or recent infection. REVIEW OF SYSTEMS: ROS: Const: Denies change in appetite, fever and weight change. CV: Denies chest pain, heart murmur and irregular heartbeat. Resp: Denies cough, pneumonia, shortness of breath, tuberculosis and wheezing. GI: Denies constipation, diarrhea, heartburn, nausea, rectal itching, bloody stools and vomiting. : Denies incontinence. Musculo: Denies leg swelling, pain, trouble walking and weakness. Skin: Denies Raynaud's, history of shingles and tattoo. Neuro: Reports ambulatory dysfunction but denies dizziness, numbness/tingling and tremor. Psych: Denies anxiety, insomnia and stress. Duy/Lymph: Denies anemia, bleeding/bruising tendency and past transfusion. Reviewed, no changes. PAST MEDICAL HISTORY: Advance Care Plan: No Advance Directives Effective Date: 12/17/2017 PMH: Medical Problems: High Blood Pressure Accidents: None Surgical Hx: Hernia Repair Anesthesia Complications: None Assistive Devices: Dentures, Glasses, Cane Reviewed, no changes. SOCIAL HISTORY: SH: Marital: .Occupation: Retired.Work Status: Retired.Hand Dominance: Right-handed. Personal Habits: Cigarette Use: Never Smoked Cigarettes.Smokeless Tobacco: Never Used Smokeless Tobacco.E-Cigarette Use: Smoker, current status unknow.Alcohol: Denies use.Drug Use: Denies Use.Enjoy Exercising: Daily. Reviewed, no changes. VITALS: Ht: 56.5 Wt: 158lb Wt k.669 BMI: 34.8 BP: 138/84 Pulse: 60 Resp: 16 T: 97.6 T: 36.4C ALLERGIES: No Known Drug Allergy MEDICATIONS: Lisinopril 5 mg 1po qday, Beta Carotene 76627 Unit 1po qday, Vitamin E 400 Unit 1po qday, B Complex 1po qday, Coq10 60 mg 1po qday, Calcium 600 600 mg 1po qday, Magnesium 200 mg 1po qday, Potassium 99 mg 1po qday, Vitamin D3 2000 Unit 1po qday PRE-OP EXAM: General appearance:NORMAL Other: Eyes: Conjunctivae and lids: NORMAL Pupils: ERR Ears, Nose, Mouth, and Throat: NORMAL Other: Inspection of lips, teeth and gums: NORMAL Other: Neck: Examination of neck: no masses noted. Respiratory: Assessment of respiratory effort: NORMAL Other: Auscultation of lungs: clear to auscultation no wheezes, rhonchi or rales. Cardiovascular: Auscultation of heart: regular rate and rhythm, systolic murmur Exam of carotid arteries: NORMAL Other: Gastrointestinal: Exam of abdomen: soft, nontender, nondistended bowel sounds present. PHYSICAL EXAMINATION: Patient walks with an antalgic gait. Left hip is cool to touch without erythema. Left hip range of motion: 90 flexion, 10 internal rotation, external rotation 10. Pain is reproduced with range of motion of the left hip. She has 3+/5 hip strength. Sensation intact to light touch. Neurovascularly intact. IMAGING STUDIES: Of the left hip reveal severe joint space narrowing with subchondral sclerosis and osteophyte formation consistent with severe osteoarthritis and femoral head collapse and flattening. There is a short varus neck. This calcifications lateral to the greater trochanter. CT scan from [facility] shows severe joint space narrowing with subchondral sclerosis and osteophyte formation. Calcifications in the subcutaneous fatty tissue lateral to the greater trochanter on CT scan appear to be superficial to the fascia IMPRESSION: 1. Severe left hip osteoarthritis 2. Hypertension PLAN: Dr. Rodriguez Shaikh did discuss and review with the patient all treatment options including surgical versus nonsurgical options. Patient does wish to proceed with the above-stated procedure. Potential risks, benefits, and complications of the procedure were discussed in detail including but not limited to , infection, nerve and blood vessel damage, persistent pain, numbness, tingling, paresthesias, blood clot, pulmonary embolism, and requirement for possible further surgery. The patient expressed full understanding and has no further questions for the doctor. Patient does agree to proceed with the above-stated procedure and has signed the surgery consent form. Patient is currently scheduled to undergo an echocardiogram and preoperative testing. Clearance will be dependent upon patient's echocardiogram. She currently denies any chest pain or shortness of breath. This dictation was created using voice recognition software. Phonetic and/or grammatical errors may exist.. ___ I have re-examined the patient. There are no clinical changes since date of exam. ___ See progress notes for changes. ___ Dictated on admission Date: Time: Signature: 01/14/18 1300 <Electronically signed by Will Wagner PA-C> Date Will Wagner PA-C Cosigner Signature: Date (if applicable) CC: Abundio Juarez DO; Will ALVAREZ Signed INTERNAL MEDICINE Observed: 01/02/2018 Status: F Source: [place] OFFICE VISIT 3:12 PM [facility] [address] [place] [address] [place] [address] OFFICE VISIT Date of Service: 01/02/18 MR#: [id number] Acct: [id number] Name: JR ALVARADO Rep #: [id number] : 1940 Provider: Abundio Juarez DO Age/Sex: 77/F Location: [facility] Status: Signed Intake Vital Signs01/02/18 Body Mass Index (BMI) 31.8 01/02/18 Height 5 ft 01/02/18 Weight: 163 lb Intake Visit Reasons: SURGICAL CLEARANCE- LT TOTAL HIP ARTHROPLASTY Chief Complaint: follow-up visit 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 Accompanied by: Family / Other Is patient in pain?: No Allergies No Known Allergies Allergy (Verified 09/04/17 12:49) Medications aspirin 81 mg tablet,delayed release 81 mg PO QDAY 07/18/17 [History Confirmed 07/18/17] ibuprofen 200 mg tablet 200 mg PO TID-QID PRN 07/18/17 [History Confirmed 11/07/17] prednisone 20 mg tablet 20 mg PO BID #10 tab 07/18/17 [Rx Confirmed 07/18/17] turmeric root extract 500 mg capsule 500 mg PO DAILY 11/07/17 [History Confirmed 11/07/17] amlodipine 2.5 mg tablet 2.5 mg PO DAILY #30 tab 01/02/18 [Rx Confirmed 01/02/18] lisinopril 20 mg-hydrochlorothiazide 12.5 mg tablet 1 tab PO DAILY #90 tab 01/02/18 [Rx Confirmed 01/02/18] PFSH Medical History Heart murmur (Chronic) High blood pressure (Chronic) Surgical History History of (Acute) History of hernia repair (Acute) Family History Brother Brain tumor Mother Heart disease Father Heart disease Social History Smoking Status: Never smoker alcohol intake: never substance use type: does not use what type of physical activity do you participate in: none HPI HPI Chief Complaint: follow-up visit Details: JR ALVARADO, is a 77 F who presents to the office today for presurgical clearance for a left hip arthroplasty. ROS Const Constitutional: Positive for headache(s); no body ache, chills, fatigue, fever(s), frequent falls, weight change, sleep problems, change in appetite, snoring, excessive sweating or weakness Eyes Eyes: No blurry vision, change in vision, eye pain or light sensitivity ENT ENT: Positive for headache(s); no abnormal hearing, ear pain, tinnitus, nasal congestion, nasal discharge, sore throat or neck pain Resp Respiratory: No snoring, cough, shortness of breath or wheezing Cardio Cardiology: No excessive sweating, chest pain at rest, chest pain with exertion, shortness of breath, dyspnea on exertion, orthopnea, palpitations or lightheadedness Gastro GI: No abdominal pain, change in bowel habits, diarrhea, constipation, vomiting, nausea/dyspepsia or cramping Genitourinary-Female: No difficulty urinating, burning urination, painful urination, urinary frequency, urinary urgency, urinary incontinence, blood in urine, urinary retention or urinary hesitancy Musc Musculoskeletal: No neck pain, abnormal walking, joint pain, back pain, limited range of motion, numbness or tingling Skin Skin: No redness, dry skin, itching, lesions, wounds or rash Neuro Neurology: Positive for headache(s); no frequent falls, weakness, abnormal hearing, abnormal walking, numbness, tingling, abnormal speech, dizziness or memory loss Psych Psychiatric: No change in appetite, No memory loss, No anxiety, No depression, No Thoughts of harming yourself/Others Endo Endocrine: No fatigue, excessive sweating, cold intolerance, increased thirst/drinking, heat intolerance, increased hunger or flushing Aller/Imm Allergy/Immunologic: No wheezing, itchy eyes, seasonal allergy symptoms or hives Duy/Lymp Hematologic/Lymphatic: No easy bleeding, easy bruising or enlarged lymph nodes Exam Const General: cooperative, frail appearing Nutritional Appearance: average body habitus Limitations: physical limitations Resp Effort AND Inspection: normal respiratory effort Auscultation: Bilateral: Clear to Auscultation Cardio Rate: regular rate Rhythm: regular rhythm Heart Sounds: murmur Musc Musculoskeletal: Yes joint tenderness and decreased ROM (left hip) Skin General: no rashes or lesions noted Extrem General: no clubbing, cyanosis or edema Assessment AND Plan Problems 1. Heart murmur R01.1 2. Essential hypertension I10 3. Primary osteoarthritis of right hip M16.11 Plan This patient was here for preoperative evaluation prior to her hip surgery. She has 2 major concerns #1 she has isolated systolic hypertension and I started her on a low dose of a long-acting calcium channel indy as she is already on a diuretic and an RIANA inhibitor. The other is she has a grade 4 systolic murmur is never been evaluated I think that she needs to have an echocardiogram prior to surgery and if the echo looks good I will clear her for surgery. I put a call into the physician's language assistant at [facility] to have him give me a call so we can discuss preoperative clearance on this patient. Orders Orders: Medications New: Refilled: Coding Level of Care Code Off vis,est,level 3 Diagnoses Heart murmur R01.1 Essential hypertension I10 Hypertension type: essential hypertension Primary osteoarthritis of right hip M16.11 Osteoarthritis type: primary 01/02/18 1512 <Electronically signed by Abundio Juarez DO> Date Abundio Juarez DO Cosigner Signature: Date (if applicable) CC: INTERNAL MEDICINE Observed: 11/07/2017 Status: F Source: [place] OFFICE VISIT 12:19 PM [facility] [address] [place] [address] [place] [address] OFFICE VISIT Date of Service: 11/07/17 MR#: [id number] Acct: [id number] Name: JR ALVARADO #: [id number] : 1940 Provider: Abundio Juarez DO Age/Sex: 77/F Location: [facility] Status: Signed Intake Vital Signs11/07/17 Height 5 ft Intake Visit Reasons: refills Chief Complaint: follow-up visit Allergies No Known Allergies Allergy (Verified 09/04/17 12:49) Medications aspirin 81 mg tablet,delayed release 81 mg PO QDAY 07/18/17 [History Confirmed 07/18/17] ibuprofen 200 mg tablet 200 mg PO TID-QID PRN 07/18/17 [History Confirmed 11/07/17] prednisone 20 mg tablet 20 mg PO BID #10 tab 07/18/17 [Rx Confirmed 07/18/17] lisinopril 20 mg-hydrochlorothiazide 12.5 mg tablet 1 tab PO DAILY #90 tab 11/07/17 [Rx Confirmed 11/07/17] turmeric root extract 500 mg capsule 500 mg PO DAILY 11/07/17 [History Confirmed 11/07/17] PFSH Medical History Heart murmur (Chronic) High blood pressure (Chronic) Surgical History History of (Acute) History of hernia repair (Acute) Family History Brother Brain tumor Mother Heart disease Father Heart disease Social History Smoking Status: Never smoker alcohol intake: never substance use type: does not use what type of physical activity do you participate in: none HPI HPI Chief Complaint: follow-up visit Details: JR ALVARADO, is a 77 F who presents to the office today for medication refill and a discussion on problems with her hip. ROS Const Constitutional: No weight change, body ache, chills, sleep problems, fever(s), snoring, weakness, frequent falls, headache(s), change in appetite, fatigue or excessive sweating Eyes Eyes: No change in vision, eye pain, light sensitivity or blurry vision ENT ENT: No ear pain, tinnitus, nasal congestion, sore throat, neck pain, headache(s) or abnormal hearing Resp Respiratory: No snoring, cough, shortness of breath or wheezing Cardio Cardiology: No chest pain at rest, chest pain with exertion, shortness of breath, dyspnea on exertion, palpitations, orthopnea, lightheadedness or excessive sweating Gastro GI: No abdominal pain, change in bowel habits, constipation, diarrhea, vomiting, nausea/dyspepsia or cramping Genitourinary-Female: No burning urination, painful urination, urinary incontinence, urinary frequency, abnormal vaginal bleeding, pelvic pain or other Musc Musculoskeletal: Positive for joint pain and other (left hip and upper leg pain); no neck pain, back pain, limited range of motion, abnormal walking, numbness or tingling Skin Skin: No redness, dry skin, lesions, wounds, rash or itching Neuro Neurology: No weakness, frequent falls, headache(s), abnormal hearing, abnormal walking, numbness, tingling, abnormal speech, dizziness or memory loss Psych Psychiatric: No change in appetite, No memory loss, No anxiety, No depression, No Thoughts of harming yourself/Others Endo Endocrine: No fatigue, excessive sweating, cold intolerance, increased thirst/drinking, heat intolerance, flushing or increased hunger Aller/Imm Allergy/Immunologic: No wheezing, itchy eyes, hives or seasonal allergy symptoms Duy/Lymp Hematologic/Lymphatic: No easy bleeding, easy bruising or enlarged lymph nodes Exam Const General: cooperative, frail appearing Nutritional Appearance: average body habitus Limitations: physical limitations Resp Effort AND Inspection: normal respiratory effort Auscultation: Bilateral: Clear to Auscultation Cardio Rate: regular rate Rhythm: regular rhythm Heart Sounds: murmur systolic Skin General: no rashes or lesions noted Extrem General: no clubbing, cyanosis or edema Assessment AND Plan Problems 1. Primary osteoarthritis of left hip M16.12 2. Heart murmur R01.1 3. Essential hypertension I10 Plan This patient was here to discuss her hip pain. She has been told by me and Dr. Andres that she has [id number] of her left hip. To this point she has been reluctant to do anything but I told her it certainly is a optional surgery and that if she really wants to get rid of the pain surgery has been quite successful for this problem we talked about the pros and cons and I think she finally decided to go ahead with it so referral was made. Blood pressure was minimally elevated but she had not taken medicine for several days because of being out of medication so the medication was renewed. Orders Referrals: Medications Refilled: Coding Level of Care Code Off vis,est,level 3 Diagnoses Primary osteoarthritis of left hip M16.12 Osteoarthritis type: primary Heart murmur R01.1 Essential hypertension I10 Hypertension type: essential hypertension 11/07/17 1219 <Electronically signed by Abundio Juarez DO> Date Abundio Juarez DO Cosigner Signature: Date (if applicable) CC: ORTHOPEDIC VISIT Observed: 09/04/2017 Status: F Source: [place] REPORT 2:19 PM [facility] REPOSITORY [facility] Medicine [address] [place] [address] OFFICE VISIT Date of Service: 09/04/17 MR#: [id number] Acct: [id number] Name: JR ALVARADO Rep #: [id number] : 1940 Provider: Val Fernandes DO Age/Sex: 77/F [place] [facility] Status: Signed Intake Vital Signs09/04/17 Height 5 ft 09/04/17 Weight: 160 lb 09/04/17 Body Mass Index (BMI) 31.2 Intake Visit Reasons: Left hip pain Is patient in pain?: Yes Pain scale (1-10): 2 Allergies No Known Allergies Allergy (Verified 09/04/17 12:49) Medications Lisinopril [Zestril] 10 mg PO DAILY 06/03/16 [History Confirmed 07/18/17] aspirin 81 mg tablet,delayed release 81 mg PO QDAY 07/18/17 [History Confirmed 07/18/17] ibuprofen 200 mg tablet 200 mg PO TID-QID PRN 07/18/17 [History Confirmed 07/18/17] prednisone 20 mg tablet 20 mg PO BID #10 tab 07/18/17 [Rx Confirmed 07/18/17] PFSH Medical History Heart murmur (Chronic) High blood pressure (Chronic) Surgical History History of (Acute) History of hernia repair (Acute) Family History Brother Brain tumor Mother Heart disease Father Heart disease Social History Smoking Status: Never smoker alcohol intake: never substance use type: does not use what type of physical activity do you participate in: none HPI Left hip pain: Details: RJ ALVARADO is a 77 year old F here today for left hip pain. She notes that she has had pain since March. Patient denies any known injury. Patient complains of pain over her deep groin. She states that she has soreness into her quad. She has increased pain with ambulation. She has difficulty ambulating stairs. Patient denies any popping, clicking or grinding. She ambulates with a cane due to her balance off. Denies numbness, tingling or other associated symptoms. She uses biofreeze which is somewhat helpful. She denies any formal physical therapy. Patient had xrays and a CT scan which is here for review. ROS Const Reports system reviewed and no additional complaints, except as docu Eyes Reports system reviewed and no additional complaints, except as docu ENT Reports system reviewed and no additional complaints, except as docu Card Reports system reviewed and no additional complaints, except as docu Resp Reports system reviewed and no additional complaints, except as docu GI Reports system reviewed and no additional complaints, except as docu Reports system reviewed and no additional complaints, except as docu Musc Reports joint pain, Reports muscle weakness Skin/Breast Reports system reviewed and no additional complaints, except as docu Neuro Yes system reviewed and no additional complaints, except as docu Psych Reports system reviewed and no additional complaints, except as docu Endo Reports system reviewed and no additional complaints, except as docu Ortho Exam Left Hip Skin/Wound: Yes CDI Contralateral Normal: Yes flexion: 90 degrees internal rotation @90 degree flexion: 30 degrees external rotation @90 degree extension: 30 degrees Homans Sign: No HIP: no saddle anesthesia, neg heel strike Assessment AND Plan 1. Left hip pain M25.552 Plan Patient was pretty adamant about what she would want to do and not want to do as far as treatment options. not interested in a total hip or further surgical intervention but is amenable to doing injections into her back and or hip and being evaluated by dr dsouza. no neurological compromise or concern, pain sign with flexion internal rotation located to groin with neg heel strike. All questions answered. Patient in agreement of plan.Follow up as needed or sooner if pain, swelling, numbness or associated symptoms, or concerns develop. Personally reviewed the patient's medical history, medications, surgeries and recent exams if available. X-rays were reviewed. There is no obvious fracture, dislocation, or lucency noted. Educated the patient on the anatomy of the hip and leg and etiology of her pain. Explained that she has extremely poor posture and patient denies any help from Dr Castelan for her posture and wants to leave it as it is as long as she can walk, flexion is her position of comfort. She would benefit from injection in the hip due to the OA. Gave Dr Castelan info. Follow up as needed or sooner if pain, swelling, numbness or associated symptoms, or concerns develop. All questions answered. Patient in agreement of plan. 2. Primary osteoarthritis of left hip M16.12 3. Poor posture R29.3 Coding Level of Care Code Off vis,new,level 3 Diagnoses Left hip pain M25.552 Primary osteoarthritis of left hip M16.12 Osteoarthritis type: primary Poor posture R29.3 09/04/17 1419 <Electronically signed by Val Fernandes DO> Date Val Alasignangel Signature: Date (if applicable) CC: Abundio Juarez DO EXTREMITY LOWER Observed: 08/04/2017 Status: F Source: [place] WITHOUT CONTRA 8:56 AM [facility] REPOSITORY [facility] Imaging Services [address] [place] [address] Extremity Lower without Contra MR#: [id number] Acct: [id number] Name: JENNYJR W Rep #: [id number] : 1940 F 77 From: Lj Jose MD PCP: Abundio Juarez DO Status: REG CLI Study: Extremity Lower without Contra Date of Exam: 08/04/17 Exam# [id number] Ordering Dr: Abundio Juarez DO STUDY: CT LEFT HIP WITHOUT CONTRAST REASON FOR EXAM: Female, 77 years old. Left groin pain and left hip pain since March. No known injury. RADIATION DOSAGE (If Supplied By Facility): CTDIvol = ( 35.43 ) mGy, DLP = ( 1043.72 ) mGycm TECHNIQUE: Transaxial imaging of the left hemipelvis was performed without oral contrast, and without intravenous administration of contrast material. Coronal and sagittal images of the hip were constructed. Individualized dose optimization techniques were used for this CT. COMPARISON: None. FINDINGS: There is moderate to severe left hip joint space narrowing. There is prominent osteophyte formation arising from the base of the left femoral head. There is osteophytic spurring of the left acetabulum as well as mild sclerosis of the superior articular surface. No demonstrated fracture or destructive bone lesion involving osseous structures of the visualized left hemipelvis. There is no demonstrated diastases of the left sacroiliac joint or the pubic symphysis. There is a 6.4 x 1.7 x 1.7 cm low-attenuation structure centrally located within the belly of the left iliopsoas muscle, possibly representing intramuscular hematoma or seroma. There are dystrophic soft tissue calcifications within subcutaneous fat of the left buttocks region. There are atherosclerotic calcifications of the distal abdominal aorta and visualized left iliac arteries. CT/Extremity Lower without Contra IMPRESSION: Intramuscular hematoma or seroma of the left iliopsoas muscle. 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 Electronically Signed: Lj Jose MD at 7:41 EDT , Service support , CC: Abundio Juarez DO Quilting Supervisor: Signed INTERNAL MEDICINE Observed: 07/18/2017 Status: F Source: [place] OFFICE VISIT 3:54 PM [facility] [address] [place] [address] [place] [address] OFFICE VISIT Date of Service: 07/18/17 MR#: [id number] Acct: [id number] Name: JR ALVARADO Rep #: [id number] : 1940 Provider: Abundio Juarez DO Age/Sex: 77/F Location: [facility] Status: Signed Intake Vital Signs07/18/17 Weight: 167 lb 07/18/17 Blood Pressure 187/82 Intake Visit Reasons: EST Chief Complaint: Leg pain Is patient in pain?: Yes (Left leg) Pain scale (1-10): 3 Allergies No Known Allergies Allergy (Verified 07/18/17 14:15) Medications Lisinopril [Zestril] 10 mg PO DAILY 06/03/16 [History Confirmed 07/18/17] aspirin 81 mg tablet,delayed release 81 mg PO QDAY 07/18/17 [History Confirmed 07/18/17] ibuprofen 200 mg tablet 200 mg PO TID-QID PRN 07/18/17 [History Confirmed 07/18/17] prednisone 20 mg tablet 20 mg PO BID #10 tab 07/18/17 [Rx Confirmed 07/18/17] PFSH Medical History Heart murmur (Chronic) High blood pressure (Chronic) Surgical History History of (Acute) History of hernia repair (Acute) Family History Brother Brain tumor Mother Heart disease Father Heart disease Social History Smoking Status: Never smoker alcohol intake: never substance use type: does not use what type of physical activity do you participate in: none HPI HPI Chief Complaint: Leg pain Details: JR ALVARADO, is a 77 F who presents to the office today for Pain in the left leg, pain is in the femur area, and the pain is much worse when she walks, and she walks very stooped over ROS Const Constitutional: No chills, fatigue, fever(s), frequent falls, malaise, weakness, sleep problems or change in appetite Eyes Eyes: No blurry vision, change in vision, double vision, discharge or visual disturbances ENT ENT: No abnormal hearing, ear pain, ear pressure, tinnitus or dizziness/vertigo Resp Respiratory: No cough, shortness of breath or wheezing Cardio Cardiology: No chest pain at rest, chest pain with exertion, shortness of breath, dyspnea on exertion, generalized swelling, irregular heart rhythm, lightheadedness, orthopnea, fast heart rate or palpitations Gastro GI: No abdominal pain, change in bowel habits, constipation, diarrhea, nausea/dyspepsia or vomiting Genitourinary-Female: No difficulty urinating, burning urination, painful urination, urinary incontinence, urinary frequency, urinary urgency, urinary hesitancy, urinary retention, Frequent nighttime urination/ nocturia, sexual problems, genital lesions, abnormal vaginal bleeding, pelvic pain, vaginal dryness, vaginal odor or Vaginal Itching Musc Musculoskeletal: Positive for joint pain (Left leg pain, Rt shoulder pain); no back pain, joint swelling, limited range of motion, muscle weakness, numbness or tingling Skin Skin: No change in skin color, itching, rash or wounds Breast Breast: No breast lump or breast pain Neuro Neurology: No frequent falls, weakness, abnormal hearing, numbness, tingling, unsteady gait/balance, dizziness, loss of vision, memory loss or visual disturbances Psych Psychiatric: No memory loss, No anxiety, No change in appetite, No depression, No Thoughts of harming yourself/Others Endo Endocrine: No fatigue, heat intolerance, increased thirst/drinking, increased hunger or increased urination Aller/Imm Allergy/Immunologic: No wheezing, itchy eyes or seasonal allergy symptoms Duy/Lymp Hematologic/Lymphatic: No easy bleeding, easy bruising or enlarged lymph nodes Exam Const General: cooperative, no acute distress Nutritional Appearance: well nourished Resp Effort AND Inspection: normal respiratory effort Auscultation: Bilateral: Clear to Auscultation Cardio Rate: regular rate Rhythm: regular rhythm Musc Musculoskeletal: No muscle weakness Other: Pt. has a lot of pain along the left femur, also a lot of pain in the hip, and is unable to frog leg the left leg. This pain came on rather suddenly, which is why the x-rays were ordered. Skin General: no rashes or lesions noted Assessment AND Plan Problems 1. Pain in left hip M25.552 Plan This patient was seen in the office complaining of severe left leg pain over the femur and also pain in the left hip onset about March of this year. She has tried a lot of home remedies and is taken [id number] NSAIDs is used heat is tried all sorts of different methods nothing relieves the pain. She rates the pain is 7-8 out of 10. I am very concerned because of the rather sudden onset of this pain that she may have an occult malignancy or perhaps some type of stress fracture she walks extremely bent over and is unable to straighten out because of the hip and is her history would indicate she is rarely seen in the office and does not complain much so the pain must be quite intense. She has a grandchild in a sunday she wondered if she could get something to give her relief so I decided I give her a bolus dose of steroids while we await her x-ray results. Patient Instructions I notify her of the results in the follow-up once I get the hip and leg x-ray back. Orders Orders: Medications New: Discontinued: hydrocodone-acetaminophen 5-325 mg Discon1 - 2 tabs PO Q4H PRN PRN Pain Em Zimmerly tinued Reason: Pt no longer taking Coding Level of Care Code Off vis,est,level 3 Diagnoses Pain in left hip M25.552 07/18/17 1554 <Electronically signed by Abundio Juarez DO> Date Abundio Juarez DO Cosigner Signature: Date (if applicable) CC: FEMUR MIN 2 VIEWS Observed: 07/18/2017 Status: F Source: [place] 3:34 PM [facility] REPOS[facility] Imaging Services [address] [place] [address] Femur Min 2 Views MR#: [id number] Acct: [id number] Name: JR ALVARADO Rep #: [id number] : 1940 F 77 From: Joel Rogel MD PCP: Abundio Juarez DO Status: REG CLI Study: Femur Min 2 Views Date of Exam: 07/18/17 Exam# [id number] Ordering Dr: Abundio Juarez DO STUDY: X-RAY - LEFT FEMUR REASON FOR STUDY: Female, 77 years old. Pain TECHNIQUE: Radiological exam, femur, minimum 2 views 5 views obtained COMPARISON: None. FINDINGS: Normal visualized femur. Extra articular calcifications noted adjacent to the greater trochanter of the femur likely sequela from previous trauma.There is no demonstrated fracture or destructive process. There are atherosclerotic vascular calcifications. RAD/Femur Min 2 Views IMPRESSION: Degenerative changes no demonstrated fracture or suspicious osseous lesion Electronically Signed: Davon Rogel MD at 8:56 EDT , Service support , CC: Abundio Juarez DO Quilting Supervisor: Signed HIP 2-3 VIEWS WITH Observed: 07/18/2017 Status: F Source: [place] PELVIS 3:34 PM [facility] REPOSITORY [facility] Imaging Services [address] [place] [address] Hip 2-3 Views with Pelvis MR#: [id number] Acct: [id number] Name: JR ALVARADO Rep #: [id number] : 1940 F 77 From: Joel Rogel MD PCP: Abundio Juarez DO Status: REG CLI Study: Hip 2-3 Views with Pelvis Date of Exam: 07/18/17 Exam# [id number] Ordering Dr: Abundio Juarez DO STUDY: X-RAY - PELVIS AND LEFT HIP REASON FOR EXAM: Female, 77 years old. Pain TECHNIQUE: Radiological exam, hip, unilateral, with pelvis when performed; 2 or 3 views. 3 views obtained. COMPARISON: None. FINDINGS: There is a non-specific bowel gas pattern. Normal visualized soft tissue structures. There is diffuse demineralization of the osseous structures. There is narrowing with cortical sclerosis and osteophyte formation of the sacroiliac joint consistent with degenerative osteoarthritic changes. Normal bilateral superior and inferior pubic rami. Normal pubic symphysis. Normal bilateral ischial tuberosities. There are osteoarthritic changes of the femoral head with marginal osteophyte formation. Normal acetabulum. is severe articular joint space narrowing of the hip. Extra articular calcifications noted adjacent to the greater trochanter, likely sequela from previous trauma. Arthritic changes also noted in the right hip but they are not as severe as those noted in the left. RAD/Hip 2-3 Views with Pelvis IMPRESSION: Diffuse demineralization of the osseous structures with severe left hip arthrosis and age consistent right hip and SI joint arthrosis. No demonstrated fracture or suspicious osseous lesion. However, hip and pelvic fractures in patients of this age can be subtle, if there is strong clinical concern of a fracture, recommend further evaluation with CT Electronically Signed: Davon Rogel MD at 8:57 EDT , Service support , CC: Abundio Juarez DO Quilting Supervisor: Signed ALLERGIES ALLERGIES DATE TYPE / CODE NAME / CODE REACTION SEVERITY SOURCE 01/14/2018 Drug No Known Unknown [place] [facility] Allergy/4160 Allergies/F00 Hospital 59044(SNOMED [id number](RXNOR Repository CT) M) ENCOUNTERS ENCOUNTERS ADMIT/DISCHARGE ACCOUNT ADMITTING ENCOUNTER LOCATION SOURCE NUMBER CLASS 01/22/2018/ [id number] [place], [place]patient [place] 8 8 [place] Encounter [facility] ing:SF8Blpu: Repository [id number]: 1 01/14/2018 [id number] Ambulatory BMSBuilding:B [place] 4 MS.CF.[facility] Repository 01/14/2018 [id number] Ambulatory BMSBuilding:W [place] 1 [facility] Repository 01/14/2018 [id number] Ambulatory [place] 3 [facility] ing:[facility] Repository 01/02/2018/ [id number] Ambulatory BMSBuilding:B [place] 8 5 MS.[facility] Repository 11/07/2017/ [id number] Ambulatory BMSBuilding:B [place] 8 0 MS.[facility] Repository 10/05/2017 [id number] Ambulatory BMSBuilding:B [place] 7 MS.[facility] Repository 09/04/2017/ [id number] Ambulatory BMSBuilding:B [place] 8 3 MS.[facility] Repository 08/04/2017 [id number] [place]ulatory [place] 7 [facility] ing:CT Repository 07/18/2017 [id number] Ambulatory [place] 6 [facility] ing:RAD Repository 07/18/2017/ [id number] Ambulatory BMSBuilding:B [place] 8 9 MS.[facility] Repository PAYERS PAYERS ENCOUNTER GUARANTOR PAYER SUBSCRIBER SOURCE 01/22/2018 JR Mcgraw Primary Insurance:[facility] JR W [place] [id number] SR PACKAGE PLANPolicy MILLERDOB: [address] Number: [id number], [place] [address]Djm: [id number] Repository Date:2017-12-17 () 01/22/2018 Secondary NOT GIVENUNK [place] Insurance:SELF PAY [facility] Number: Effective Repository Date:2017-12-17 01/14/2018 JR Mcgraw Primary NOT GIVENUNK [place] [id number] SR Insurance:SELF PAY [address] [address]Fso: Number: Effective Repository Date:2018-01-14 (HP) 01/14/2018 JR W Primary NOT GIVENUNK [place] [id number] SR Insurance:SELF PAY [address] [address]Mlx: Number: Effective Repository Date:2018-01-14 () 01/14/2018 JR Mcgraw Primary NOT GIVENUNK [place] [id number] SR Insurance:SELF PAY [address] [address]Wrr: Number: Effective Repository Date:2018-01-02 (HP) 01/02/2018 JR W Primary NOT GIVENUNK [place] [id number] SR Insurance:SELF PAY [address] [address]Buq: Number: Effective Repository Date:2018-01-02 (HP) 11/07/2017 JR W Primary NOT GIVENUNK [place] [id number] SR Insurance:SELF PAY [address] [address]Pde: Number: Effective Repository Date:2017-11-07 (HP) 10/05/2017 JR W Primary NOT GIVENUNK [place] [id number] SR Insurance:SELF PAY [address] [address]Clo: Number: Effective Repository Date:2017-10-05 (HP) 09/04/2017 JR W Primary NOT GIVENUNK [place] [id number] SR Insurance:SELF PAY [address] [address]Qwx: Number: Effective Repository Date:2017-09-04 (HP) 08/04/2017 JR W Primary Insurance:[facility] JR W [place] [id number] SR PACKAGE PLANPolicy MILLERDOB: [address] Number: [id number], [place] [address]Xgs: [id number] Repository Date:2017-07-26 (HP) 08/04/2017 Secondary NOT GIVENUNK [place] Insurance:SELF PAY [facility] Number: Effective Repository Date:2017-07-26 07/18/2017 JR W Primary Insurance:[facility] JR W [place] [id number] SR PACKAGE PLANPolicy MILLERDOB: [address] Number: [id number], [place] [id number]: [id number] Repository Date:2017-07-18 (HP) 07/18/2017 Secondary NOT GIVENUNK [place] Insurance:SELF PAY [facility] Number: Effective Repository Date:2017-07-18 07/18/2017 JR W Primary NOT GIVENUNK [place] [id number] SR Insurance:SELF PAY [facility] [address] [place] [address]Vgy: Number: [facility] Date:2017-05-17 ()
== END 2018-01-23 14:35 | disposition home or self-care (01) | DRG 470 ==
LOC: ACINP 07:46 → MS3 01-23 08:55
PROVIDERS: Admitting Provider Specialist; Family Provider Family Medicine; PCP Family Medicine; Referring Provider Specialist; Visit Provider Specialist
PROC: 0SRB04A Replacement of Left Hip Joint with Ceramic on Polyethylene Synthetic Substitute, Uncemented, Open Approach (ICD-10-PCS; CPT 27284; principal; 2018-01-22 09:20)
DX: M16.12 Unilateral primary osteoarthritis, left hip (principal); I10 Essential (primary) hypertension
CPT/HCPCS: 36415; 73501; 73502; 76000; 80048; 85025; 85027; 87077; 87081; 93005; 97110; 97162; 97165; 97530; 97535; 99251; C1776; J7120; G0463; J2405

== ENCOUNTER 2020-02-27 09:19 | Inpatient (IN) | payer OTHER, SELFPAY ==
[2018-01-22 12:40] VITALS: BMI 35.4
[2020-02-27] VITALS (14 sets, daily range): BP systolic 95–162; BP diastolic 44–95; PULSE 70–130; RESP 14–23; TEMP 36.4–37.2; O2SAT 90–98; BMI 26.4; BMI 27.2
--- NOTE | 2020-02-27 09:51 | CT_ITS ---
STUDY: CT ABDOMEN AND PELVIS WITH CONTRAST REASON FOR EXAM: Female, 79 years old. ABD PAIN/N/V RADIATION DOSAGE (If Supplied By Facility): CTDIvol = ( 13.60 ) mGy, DLP = ( 667.96 ) mGycm TECHNIQUE: Transaxial images were obtained from the dome of the diaphragm to the symphysis pubis with oral contrast. Oral and amp; IV GASTROGRAFIN and amp; 100ML ISOVUE 300 was administered. Sagittal and coronal images were reconstructed. Individualized dose optimization techniques were used for this CT. COMPARISON: None. FINDINGS: Small right pleural effusion. Right basilar atelectasis and/or infiltrate. Left basilar scarring with superimposed atelectasis. Coronary artery calcification. Minimal degree of intrahepatic biliary ductal dilatation. There is a marked degree of distention of the gallbladder. Thickened gallbladder wall with increased markings in the surrounding peritoneal fat in keeping with acute cholecystitis. Small gallstones are seen within it. Normal spleen. Normal pancreas. Normal bilateral adrenal glands. Normal right kidney. Normal left kidney. Normal visualized stomach. Normal small intestine. Normal colon. The appendix is visualized and appears normal. There is diffuse atherosclerotic calcification of the abdominal aorta, without a demonstrated aneurysm. Normal inferior vena cava. Normal retroperitoneum. Normal urinary bladder. Normal abdominal wall. 50% loss of height of the L1 vertebrae. Prior left total hip replacement. CT/Abdomen/Pelvis WITH Contrast IMPRESSION: Markedly distended gallbladder diffuse thickening of the wall and gallstones. Increased markings in the surrounding fat suggestive of acute cholecystitis. Electronically Signed: Delvin Paz MD at 12:08 EST , Service support ,
--- NOTE | 2020-02-27 09:53 | ED.DCSUM_ITS ---
- ER Visit Summary Date of Service: 02/27/20 Chief Complaint: Abdominal pain, nausea, and vomiting History of Present Illness: The patient is a 79 F who presents with abdominal pain, nausea, and vomiting that has been constant for the past 4 days. Patient states that 5 days ago she was around a propane heater. Patient states the propane was leaking. Patient states the next day she started having some nausea and vomiting. Patient states she has also developed pain on her right side of her abdomen. Patient states nothing makes it better nothing makes it worse. Patient denies any hematemesis or coffee-ground emesis. Patient denies any diarrhea, melena, or hematochezia. Patient denies any dysuria or hematuria. Physical Examination: Vital signs are stable except for mild tachycardia of 109 and a blood pressure of 159/88. Patient is afebrile. Patient is in no acute distress. Oral mucosa is pink and moist. Neck is supple. Trachea is midline. There is no JVD. Heart was regular rate and rhythm. There is a grade 3/6 systolic murmur. Lungs are clear and equal bilaterally. Abdomen is soft. Bowel sounds are normal. There is tenderness over the right upper and right lower quadrants. There is no rebound or guarding noted. Cranial nerves II through XII are intact. There are no focal motor or sensory deficits noted. Extremities are intact. There is no calf tenderness or edema. Test Results: CBC shows a leukocytosis of 21.8. Comprehensive metabolic profile showed a sodium of 119 and chloride of 83. Liver function tests and lipase were normal. Urinalysis does not show any evidence of urinary tract infection. CT scan of the abdomen and pelvis was obtained. There is a markedly distended gallbladder with diffuse wall thickening and increased markings in the surrounding fat suggestive of cholecystitis. This was interpreted by the radiologist. Emergency Department Course and Treatment: Patient was given a dose of morphine. Patient was given a dose of Zofran. Patient was given IV fluids. Patient was given a dose of Zosyn. Case was discussed with Dr. Hough. He reviewed the images and recommended having a Valarie tube placed by radiology. Patient will be transferred to interventional radiology to have this placed. Case was also cussed with Dr. Sandoval. He will admit the patient to his service. Patient understands and is agreeable with the plan. All questions were answered. Disposition: Admit to hospital Impression: 1. Acute cholecystitis 2. Hyponatremia This note was generated with [employer] Video dictation software. It may contain incorrect words, spelling, and punctuation that were not noted in review of the chart prior to signing ED Disposition - Plan for ED Patient: Disposition: Acute Care Hospital [facility] Diagnosis: Acute cholecystitis, Hyponatremia Referrals: Abundio Juarez DO [Primary Care Provider] -
[2020-02-27] MEDS: Morphine 4 MG/ML Syringe IV (10:05)
[2020-02-27] MEDS: Ondansetron 4 MG/2 ML Vial IV (10:05)
[2020-02-27] MEDS: 0.9% Normal Saline 1,000 ML 1000 ML IV (10:06)
[2020-02-27 10:19] LABS: Absolute Lymphocyte Count 0.75 X10^3/uL (0.83-4.51); Absolute Neutrophil Count 19.5 X10^3/uL (2.0-7.7); Basophil# 0.03 X10^3/uL; Basophil% 0.1 % (0-1); Eosinophil# 0.01 X10^3/uL; Hematocrit 40.1 % (37-47); Hemoglobin 13.8 g/dL (12.0-15.0); Lymphocyte # 0.75 X10^3/ul (4.0); Lymphocyte % 3.4 % (19-41); Mean Corp Hgb Conc 34.4 g/dL (32-36); Mean Corpuscular Hgb 29.2 pg (27.0-32.0); Mean Corpuscular Volume 84.8 fL (81-99); Monocyte# 1.17 X10^3/uL; Monocyte% 5.4 % (0-10); NRBC Flagged by Analyzer 0 % (0-5); Neutrophil # 19.54 X10^3/uL (2.7-7.7); Platelet Count 210 K/mm3 (150-450); RBC Distribution Width CV 12.6 % (11.6-14.6); RBC Distribution Width SD 38.8 fl (35.1-43.9); Red Blood Count 4.73 M/mm3 (4.2-5.4); White Blood Count 21.8 K/mm3 (4.4-11.0)
[2020-02-27 10:43] LABS: ALB/GLOB Ratio 0.6 RATIO (0.9-2.4); AST(SGOT) 17 U/L (15-37); Alanine Aminotransfer ALT/SGPT 18 U/L (13-56); Albumin, Serum 2.7 g/dL (3.2-5.0); Alkaline Phosphatase 84 U/L (45-117); Anion Gap 6 (5-15); BUN 23 mg/dL (7-18); BUN/Creat Ratio 23.4 RATIO (10-20); Calcium,Total 8.9 mg/dL (8.5-10.1); Chloride 83 mmol/L (98-107); Creatinine, Serum 0.98 mg/dL (0.55-1.02); EST Glomerular Filtration Rate 58 mL/min (>60); Est Glom Filt Rate - Afr Amer 70 mL/min (>60); Estimated Creatinine Clearance 33.97 ml/min; Globulin 4.6 g/dL (2.2-4.2); Glucose 130 mg/dL (74-106); Lipase 53 U/L (73-393); Potassium 3.5 mmol/L (3.5-5.1); Protein, Total 7.3 g/dL (6.4-8.2); Sodium Level 119 mmol/L (136-145)
[2020-02-27 11:57] LABS: Mucous, Urine 0 SEEN /hpf (<or=2+)
[2020-02-27 12:05] LABS: Color, Urine Yellow (Yellow); Glucose, Dipstick Normal (Normal); Ketone-Dipstick Negative (Negative); Leukocyte Esterase-Dipstick 25 /ul (Negative); Nitrite-Dipstick Negative (Negative); Occult Blood-Urine 50 /ul (Negative); Protein-Dipstick 30 mg/dl (Negative); Specific Gravity, Urine 1.015 (1.002-1.030); Urine Bilirubin Dipstick Negative (Negative); Urine Clarity Sl. Cloudy (Clear); Urine Urobilinogen 1 mg/dl (Normal)
[2020-02-27 12:21] LABS: Bacteria 1+ /hpf (None Seen); Red Blood Cells-Urine 0-5 SEEN /hpf (0-5); Squamous Epithelial Cells - UA 0-5 SEEN /hpf (5-10); White Blood Cells 0-5 SEEN /hpf (0-5)
--- NOTE | 2020-02-27 12:34 | CT_ITS ---
PROCEDURE: CT DIRECTED PERCUTANEOUS CHOLECYSTOSTOMY. DATE OF EXAMINATION: 02/27/2020. INDICATION: Female, 79 years old. Distended gallbladder and acute cholecystitis. PHYSICIAN: Dr. CORINA Hill CONSENT: Written informed consent was obtained having explained the risks, benefits and alternatives in detail with the patient who accepted the risks and agreed to proceed. Laboratory review and clinical assessment was performed. CONSCIOUS SEDATION PROTOCOL: The Drugs used were: 1 mg Versed, IV., and 25 mcg Fentanyl, IV. The sedation time was: 17 minutes. Conscious sedation was started at 1:34 PM and terminated at 121. The conscious sedation protocol was independently monitored. RADIATION DOSAGE (If Supplied By Facility): CTDIvol = ( 14.45 ) mGy, DLP = ( 581.87 ) mGycm Individualized dose optimization techniques were used for this CT. TECHNIQUE: CT sections were made through the abdomen and pelvis revealing distended gallbladder with diffuse wall thickening and findings indicative with acute cholecystitis.. The skin surface was prepped and draped in a sterile fashion. A 8.5 Jordanian drainage catheter was then inserted into the collection and formed into position. Additional fluid was aspirated for a total of approximately 95 mL of cloudy red fluid. The catheter was sutured into position to allow for continued drainage. Followup CT reveals good position of the catheter. CT/Abscess/Fistula/Sinus Tract IMPRESSION: 1. CT directed drainage of a fluid collection using CT image guidance and image documentation as described. 2. Conscious Sedation protocol utilized with independent monitoring Electronically Signed: Delvin Paz MD at 14:17 EST , Service support ,
[2020-02-27 12:49] LABS: International Normalized Ratio 1.3; Prothrombin Time (Protime)PT. 15.2 SECONDS (11.7-14.9)
[2020-02-27 12:50] LABS: Partial Thromboplast Time 33.2 Seconds (24.1-36.2)
--- NOTE | 2020-02-27 12:55 | NURSING ---
MED SURG KOTSONIS CHOLECYSTITIS, HYPONATREMIA
[2020-02-27] MEDS: Midazolam 2 MG/2 ML Syringe IV (13:34)
[2020-02-27] MEDS: fentaNYL 100 MCG/2 ML Ampul IV (13:34)
[2020-02-27] MEDS: 0.9% Normal Saline 1,000 ML 100 ML IV (15:39)
--- NOTE | 2020-02-27 16:10 | CON.PCM_ITS ---
Problem List (1) Acute cholecystitis Status: Acute Reason for Consult Date of Consultation: 02/27/20 History of Present Illness: The patient is a 79 year old F presented to the emergency room with abdominal pain. The patient has had abdominal pain for 4 days. She does not have any fever or chills but she did have nausea and vomiting for the last 4 days. She describes her pain is in the right upper quadrant and sharp. Past Medical History Past Medical History (Chronic Problems): Chronic Problems (Last Reviewed 01/02/18 @ 15:[address] Abundio Juarez DO) Heart murmur (Chronic) High blood pressure (Chronic) Medical History: Medical History (Last Reviewed 01/02/18 @ 15:[address] Abundio Juarez DO) Heart murmur (Chronic) R01.1 High blood pressure (Chronic) I10 Allergies No Known Allergies Allergy (Verified 02/27/20 09:19) Home Medications: Ambulatory Orders Medication Instructions Recorded Calcium (Elemental) [Os-Gibson 500] 600 mg PO DAILY 01/14/18 Cholecalciferol (VIT D3) [Vitamin 1 tab PO DAILY 01/14/18 D3] Potassium (Otc) [Potassium OTC] 99 mg PO DAILY 01/14/18 Acetaminophen [Tylenol] 1,000 mg PO Q8 #90 tablet 01/23/18 Aspirin [Aspirin, Baby] 81 mg PO DAILY 02/27/20 Lisinopril 20 mg PO DAILY 02/27/20 Vitamin E PO DAILY 02/27/20 Surgical History: Surgical History (Last Reviewed 01/02/18 @ 15:[address] Abundio Juarez DO) History of Z98.891 History of hernia repair Z98.890, Z87.19 Smoking Status: Never smoker - *Family History Maternal Family History: Family History (Last Reviewed 01/02/18 @ 15:[address] Abundio Juarez DO) Brother Brain tumor Mother Heart disease Father Heart disease Review of Systems Constitutional: Reports: Anorexia. Denies: Fever HEENT: Denies: Difficulty Swallowing Cardiovascular: Denies: Chest Pain Respiratory: Denies: Cough, Pleuritic Pain, Shortness of Breath Gastrointestinal: Reports: Abdominal Pain, Nausea, Vomiting. Denies: Constipation, Diarrhea Musculoskeletal: Denies: Joint Tenderness Skin: Denies: Jaundice Hematologic/ Lymphatic: Denies: Adenopathy Patient Problems: Active and Suspected Problems (Last Reviewed 01/02/18 @ 15:[address] Abundio Juarez, DO) Acute cholecystitis (Acute) Hyponatremia (Acute) - Physical Exam Vitals/I&O's: Vital Signs Temp Pulse Resp BP Pulse Ox 97.7 F L 70 18 95/44 L 97 02/27/20 14:51 02/27/20 14:51 02/27/20 14:51 02/27/20 14:51 02/27/20 14:51 Oxygen Flow Rate (L/min) [4] 2 Oxygen Flow Rate (L/min) [3] 2 Oxygen Flow Rate (L/min) [2] 2 Oxygen Flow Rate (L/min) [1 ( 2 Initial Baseline)] Oxygen Flow Rate (L/min) 2 Oxygen Delivery Method [4] Nasal Cannula Oxygen Delivery Method [3] Nasal Cannula Oxygen Delivery Method [2] Nasal Cannula Oxygen Delivery Method [1 ( Nasal Cannula Initial Baseline)] Oxygen Delivery Method Nasal Cannula Weight: 144 lb 3.2 oz Body Mass Index (BMI) 27.2 Intake and Output for Last 24 Hours 02/25/20 02/26/20 02/27/20 23:59 23:59 23:59 Intake Total 1100 / 1100 Balance 1100 / 1100 General: Alert, Oriented x3 Neck: No JVD Lungs: Clear to auscultation Cardiovascular: Regular Rhythm, Tachycardic Abdomen: Soft, Non-Distended, Tender - Tender on the right side of the abdomen Extremities: No clubbing Musculoskeletal: No Muscle Wasting Lymphatic: No Cervical, Supraclavicular, or Inguinal Adenopathy Neurological: Cranial nerves II-XII grossly intact Psych/Mental Status: Normal Affect Microbiology Past 72 Hours 02/27/20 13:50 Aspirate - Bile Gram Stain - Final 02/27/20 11:55 Mucosa - Nose SARS-CoV-2 Antigen (Rapid) - Final Laboratory Results 02/27/20 10:00: WBC 21.8 H, RBC 4.73, Hgb 13.8, Hct 40.1, MCV 84.8, MCH 29.2, MCHC 34.4, RDW Std Deviation 38.8, RDW Coeff of Tino 12.6, Plt Count 210, MPV 11.0, Immature Gran % (Auto) 1.100 H, Neut % (Auto) 90.0 H, Lymph % (Auto) 3.4 L , [place] % (Auto) 5.4, Eos % (Auto) 0.0, Baso % (Auto) 0.1, Absolute Neuts (auto) 19.5 H, Absolute Lymphs (auto) 0.75 L, Nucleated RBC % 0 02/27/20 10:00: Sodium 119 L*, Potassium 3.5, Chloride 83 L, Carbon Dioxide 30.0, Anion Gap 6, BUN 23 H, Creatinine 0.98, Estim Creat Clear Calc 33.97, Est GFR (MDRD) Af Amer 70, Est GFR (MDRD) Non-Af 58 L, BUN/Creatinine Ratio 23.4 H, Glucose 130 H, Calcium 8.9, Total Bilirubin 1.00, AST 17, ALT 18, Alkaline Phosphatase 84, Total Protein 7.3, Albumin 2.7 L, Globulin 4.6 H, Albumin/Globulin Ratio 0.6 L, Lipase 53 L 02/27/20 10:00: PT 15.2 H, INR 1.3, APTT 33.2 02/27/20 11:52: Urine Color Yellow, Urine Clarity Sl. Cloudy, Urine pH 6.0, Ur Specific [place] 1.015, Urine Protein 30 H, Urine Glucose (UA) Normal, Urine Ketones Negative, Urine Occult Blood 50 H, Urine Nitrite Negative, Urine Bilirubin Negative, Urine Urobilinogen 1 H, Ur Leukocyte Esterase 25 H, Urine RBC 0-5 SEEN, Urine WBC 0-5 SEEN, Ur Squamous Epith Cells 0-5 SEEN, Urine Bacteria 1+, Urine Mucus 0 SEEN Clinical Impression(s) from Imaging Studies Abdomen/Pelvis CT 02/27/20 09:51 IMPRESSION: Markedly distended gallbladder diffuse thickening of the wall and gallstones. Increased markings in the surrounding fat suggestive of acute cholecystitis. Electronically Signed: Delvin Paz MD at 12:08 EST , Service support , Abscess Drainage 02/27/20 12:34 IMPRESSION: 1. CT directed drainage of a fluid collection using CT image guidance and image documentation as described. 2. Conscious Sedation protocol utilized with independent monitoring Electronically Signed: Delvin Paz MD at 14:17 EST , Service support , Current Medications Acetaminophen (Acetaminophen 325 Mg Tablet) 650 mg PO Q6H PRN PRN PRN Reason: Pain Score 1-10/Temp > 100.7 F Enoxaparin Sodium (Enoxaparin 40 Mg/0.4 Ml Syringe) 40 mg SC DAILY KLEBER Sodium Chloride () 250 mls @ 15 mls/hr IV .[id number] PRN PRN Reason: Saline Flush Sodium Chloride () 250 mls @ 15 mls/hr IV .[id number] PRN PRN Reason: Additional IVPB Infusion Sodium Chloride () 1,000 mls @ 100 mls/hr IV .Q10H KLEBER Last Admin: 02/27/20 15:39 Dose: 100 mls/hr Documented by: Piperacillin Sod/Tazobactam (Sod 3.375 gm/ Sodium Chloride) 50 mls @ 12.5 mls/hr IV Q8 KLEBER Melatonin (Melatonin 3 Mg Tablet) 3 mg PO QHS PRN PRN PRN Reason: INSOMNIA Ondansetron HCl (Ondansetron 4 Mg/2 Ml Vial) 4 mg IV Q8H PRN PRN PRN Reason: NAUSEA/VOMITING Sodium Chloride (0.9% Saline Lock 10 Ml Syringe) 10 - 40 ml IV UD PRN PRN Reason: SALINE FLUSH Assessment/Plan All Active Problems (Last Reviewed 01/02/18 @ 15:[address] Abundio Juarez, DO) Acute cholecystitis (Acute) Hyponatremia (Acute) 79-year-old female with acute cholecystitis 1. The patient has right upper quadrant pain with nausea and vomiting of 4 days duration. I reviewed the patient's labs and she does have severe leukocytosis as well as hyponatremia. The patient has CT scan which showed severely dilated gallbladder with wall thickening and stranding around it. 2. I discussed this with the patient in detail. Given how long she has had acute cholecystitis and how severe her symptoms and CT appear with an elevated white count and tachycardia I recommend a cholecystostomy tube. I believe this would allow time to resolve the infection as well as treat her electrolyte abnormalities and allow the inflammation to subside. I will plan for laparoscopic cholecystectomy as an outpatient in the future. I recommend continuing IV antibiotics and diet as tolerated. The patient will have cholecystostomy tube placed. I discussed this plan with the patient and she is agreeable. Felix Hough MD Pager: [facility] [address] [place] [address] [address] [place] [address] Office:
--- NOTE | 2020-02-27 16:39 | EKG12_ITS ---
Test Reason : ARRYTHMIA Blood Pressure : / mmHG Vent. Rate : 079 BPM Atrial Rate : 098 BPM P-R Int : 000 ms QRS Dur : 096 ms QT Int : 366 ms P-R-T Axes : 000 -06 079 degrees QTc Int : 419 ms Atrial fibrillation Septal infarct , age undetermined ST & T wave abnormality, consider lateral ischemia Abnormal ECG When compared with ECG of 14-JAN-2018 15:12, Atrial fibrillation has replaced Sinus rhythm Septal infarct is now Present Confirmed by DEMARCUS RAMOS, PILY ([id number]), photography editor OFELIA DUNN ([id number]) on 03/03/2020 11:23:56 AM Referred By: ABHISHEK Confirmed By:PILY TRACY MD
--- NOTE | 2020-02-27 16:48 | HP.PCM_ITS ---
History of Present Illness Date of Admission: 02/27/20 Chief Complaint: Abdominal pain, nausea, vomiting The patient is a 79 year old F with a PMH as below presents from home with abdominal pain, nausea, and vomiting that has been going on for the last 4 days. The pain is located on the right side of the abdomen, and she has not noticed anything that makes it better or worse. When she presented to the ER she was afebrile but had a leukocytosis as well as hyponatremia. CT scan of the abdomen demonstrated a markedly distended gallbladder with diffuse wall thickening. Surgery was consulted by the ED for evaluation and recommended a cholecystostomy tube and IV antibiotics. Past Medical History Past Medical History (Chronic Problems): Chronic Problems (Last Reviewed 01/02/18 @ 15:[address] Abundio Juarez DO) Heart murmur (Chronic) High blood pressure (Chronic) Medical History: Medical History (Last Reviewed 01/02/18 @ 15:[address] Abundio Juarez DO) Heart murmur (Chronic) R01.1 High blood pressure (Chronic) I10 Allergies No Known Allergies Allergy (Verified 02/27/20 09:19) Home Medications: Ambulatory Orders Medication Instructions Recorded Calcium (Elemental) [Os-Gibson 500] 600 mg PO DAILY 01/14/18 Cholecalciferol (VIT D3) [Vitamin 1 tab PO DAILY 01/14/18 D3] Potassium (Otc) [Potassium OTC] 99 mg PO DAILY 01/14/18 Acetaminophen [Tylenol] 1,000 mg PO Q8 #90 tablet 01/23/18 Aspirin [Aspirin, Baby] 81 mg PO DAILY 02/27/20 Lisinopril 20 mg PO DAILY 02/27/20 Vitamin E PO DAILY 02/27/20 Surgical History: Surgical History (Last Reviewed 01/02/18 @ 15:[address] Abundio Juarez DO) History of Z98.891 History of hernia repair Z98.890, Z87.19 Smoking Status: Never smoker Alcohol: None Drugs: None - *Family History Maternal Family History: Family History (Last Reviewed 01/02/18 @ 15:[address] Abundio Juarez DO) Brother Brain tumor Mother Heart disease Father Heart disease Review of Systems Constitutional: Denies: Chills, Fever, Weight Change HEENT: Denies: Head Aches, Sinus Congestion, Sinus Drainage Cardiovascular: Denies: Chest Pain, Palpitations Respiratory: Denies: Cough, Shortness of breath at rest, Sputum production Gastrointestinal: Reports: Abdominal Pain, Nausea, Vomiting Genitourinary: Denies: Dysuria Musculoskeletal: Denies: Joint Pain, Joint Tenderness Skin: Denies: Rash, Wounds Neurological: Denies: Numbness, Tingling, Focal weakness Psychiatric: Denies: Anxiety, Depression Hematologic/ Lymphatic: Denies: Easy Bruising, Easy Bleeding VTE Information - Inpt Only VTE Present on Admission: No Patient Problems: Active and Suspected Problems (Last Reviewed 01/02/18 @ 15:[address] Abundio Juarez, DO) Acute cholecystitis (Acute) Hyponatremia (Acute) - Physical Exam Vitals/I&O's: Vital Signs Temp Pulse Resp BP Pulse Ox 97.7 F L 70 18 95/44 L 97 02/27/20 14:51 02/27/20 14:51 02/27/20 14:51 02/27/20 14:51 02/27/20 14:51 Oxygen Flow Rate (L/min) [4] 2 Oxygen Flow Rate (L/min) [3] 2 Oxygen Flow Rate (L/min) [2] 2 Oxygen Flow Rate (L/min) [1 ( 2 Initial Baseline)] Oxygen Flow Rate (L/min) 2 Oxygen Delivery Method [4] Nasal Cannula Oxygen Delivery Method [3] Nasal Cannula Oxygen Delivery Method [2] Nasal Cannula Oxygen Delivery Method [1 ( Nasal Cannula Initial Baseline)] Oxygen Delivery Method Nasal Cannula Weight: 144 lb 3.2 oz Body Mass Index (BMI) 27.2 Intake and Output for Last 24 Hours 02/25/20 02/26/20 02/27/20 23:59 23:59 23:59 Intake Total 1100 / 1100 Balance 1100 / 1100 General: Alert, Oriented x3, Cooperative, No apparent distress HEENT: Atraumatic, PERRLA, EOMI, Normocephalic Oral: Moist Mucosa Neck: Supple, No JVD Lungs: Clear to auscultation, Normal air movement, No rhonchi, No wheeze, No rales Cardiovascular: Regular rate, Regular Rhythm, Normal S1, Normal S2, Murmur - CONSTANCE Abdomen: Soft, Non-Distended, No Hepato-splenomegaly, Tender - Around where the cholecystostomy tube is Extremities: No edema, Capillary Refill Less than 3 Seconds Skin: No rashes, No breakdown Neurological: Neuro grossly intact, Sensory exam intact to light touch and pain Psych/Mental Status: Normal Affect, Appropriate Microbiology Past 72 Hours 02/27/20 13:50 Aspirate - Bile Gram Stain - Final 02/27/20 11:55 Mucosa - Nose SARS-CoV-2 Antigen (Rapid) - Final Laboratory Results 02/27/20 10:00: WBC 21.8 H, RBC 4.73, Hgb 13.8, Hct 40.1, MCV 84.8, MCH 29.2, MCHC 34.4, RDW Std Deviation 38.8, RDW Coeff of Tino 12.6, Plt Count 210, MPV 11.0, Immature Gran % (Auto) 1.100 H, Neut % (Auto) 90.0 H, Lymph % (Auto) 3.4 L , [place] % (Auto) 5.4, Eos % (Auto) 0.0, Baso % (Auto) 0.1, Absolute Neuts (auto) 19.5 H, Absolute Lymphs (auto) 0.75 L, Nucleated RBC % 0 02/27/20 10:00: Sodium 119 L*, Potassium 3.5, Chloride 83 L, Carbon Dioxide 30.0, Anion Gap 6, BUN 23 H, Creatinine 0.98, Estim Creat Clear Calc 33.97, Est GFR (MDRD) Af Amer 70, Est GFR (MDRD) Non-Af 58 L, BUN/Creatinine Ratio 23.4 H, Glucose 130 H, Calcium 8.9, Total Bilirubin 1.00, AST 17, ALT 18, Alkaline Phosphatase 84, Total Protein 7.3, Albumin 2.7 L, Globulin 4.6 H, Albumin/Globulin Ratio 0.6 L, Lipase 53 L 02/27/20 10:00: PT 15.2 H, INR 1.3, APTT 33.2 02/27/20 11:52: Urine Color Yellow, Urine Clarity Sl. Cloudy, Urine pH 6.0, Ur Specific [place] 1.015, Urine Protein 30 H, Urine Glucose (UA) Normal, Urine Ketones Negative, Urine Occult Blood 50 H, Urine Nitrite Negative, Urine Bilirubin Negative, Urine Urobilinogen 1 H, Ur Leukocyte Esterase 25 H, Urine RBC 0-5 SEEN, Urine WBC 0-5 SEEN, Ur Squamous Epith Cells 0-5 SEEN, Urine Bacteria 1+, Urine Mucus 0 SEEN Current Medications Acetaminophen (Acetaminophen 325 Mg Tablet) 650 mg PO Q6H PRN PRN PRN Reason: Pain Score 1-10/Temp > 100.7 F Enoxaparin Sodium (Enoxaparin 40 Mg/0.4 Ml Syringe) 40 mg SC DAILY KLEBER Sodium Chloride () 250 mls @ 15 mls/hr IV .[id number] PRN PRN Reason: Saline Flush Sodium Chloride () 250 mls @ 15 mls/hr IV .[id number] PRN PRN Reason: Additional IVPB Infusion Sodium Chloride () 1,000 mls @ 100 mls/hr IV .Q10H KLEBER Last Admin: 02/27/20 15:39 Dose: 100 mls/hr Documented by: Piperacillin Sod/Tazobactam (Sod 3.375 gm/ Sodium Chloride) 50 mls @ 12.5 mls/hr IV Q8 KLEBER Melatonin (Melatonin 3 Mg Tablet) 3 mg PO QHS PRN PRN PRN Reason: INSOMNIA Ondansetron HCl (Ondansetron 4 Mg/2 Ml Vial) 4 mg IV Q8H PRN PRN PRN Reason: NAUSEA/VOMITING Sodium Chloride (0.9% Saline Lock 10 Ml Syringe) 10 - 40 ml IV UD PRN PRN Reason: SALINE FLUSH Assessment/Plan All Active Problems (Last Reviewed 01/02/18 @ 15:[address] Abundio Juarez, DO) Acute cholecystitis (Acute) Hyponatremia (Acute) 1. Sepsis secondary to acute cholecystitis -Given her age and how infected this gallbladder appears, general surgery recommended to have a percutaneous drainage and continued antibiotics -We will continue to monitor for improvement and will plan for discharge when she is improved. She will need to follow-up back as an outpatient for cholecystectomy once the inflammation has reduced -Continue with Zosyn, there was some concern that she potentially went into A. fib during the procedure therefore continue to monitor on telemetry and obtain an EKG 2. Hypertension/paroxysmal A. fib -Blood pressure is currently stable -Continue with lisinopril and aspirin -She states that she has had an abnormal heart rate for a while now, she does not really notice it. We will continue to monitor, currently she is normal sinus with a rate in the 80s however if she jumps back up in the 130s 140s we may need to consult cardiology for evaluation and management. And has been put on an anticoagulant secondary to needing surgery in a few weeks. DVT: Lovenox Inpatient E&M: [id number] Init Hosp L3
[2020-02-28] MEDS: 0.9% Normal Saline 1,000 ML 100 ML IV (01:40)
[2020-02-28 02:01] VITALS: BP 126/72; PULSE 88; RESP 18; TEMP 36.8; O2SAT 96
[2020-02-28 02:45] VITALS: PULSE 108
--- NOTE | 2020-02-28 02:51 | PCS.PANDOC ---
PANDEMIC DOCUMENTATION INITIATED: Date: 02/27/2020 Time: 3884
[2020-02-28 05:37] VITALS: BP 131/59; PULSE 83; RESP 18; TEMP 37.4; O2SAT 95
[2020-02-28 06:42] LABS: Absolute Lymphocyte Count 0.62 X10^3/uL (0.83-4.51); Absolute Neutrophil Count 11.8 X10^3/uL (2.0-7.7); Basophil# 0.03 X10^3/uL; Basophil% 0.2 % (0-1); Eosinophil# 0.03 X10^3/uL; Eosinophils% 0.2 % (0-5); Hematocrit 32.3 % (37-47); Hemoglobin 11.2 g/dL (12.0-15.0); Lymphocyte # 0.62 X10^3/ul (4.0); Lymphocyte % 4.6 % (19-41); Mean Corp Hgb Conc 34.7 g/dL (32-36); Mean Corpuscular Hgb 29.4 pg (27.0-32.0); Mean Corpuscular Volume 84.8 fL (81-99); Mean Platelet Vol. 10.7 fl (6.2-12.0); Monocyte# 0.95 X10^3/uL; NRBC Flagged by Analyzer 0 % (0-5); Neutrophil # 11.79 X10^3/uL (2.7-7.7); Neutrophil % 87.6 % (47-70); Platelet Count 217 K/mm3 (150-450); RBC Distribution Width CV 12.7 % (11.6-14.6); Red Blood Count 3.81 M/mm3 (4.2-5.4); White Blood Count 13.5 K/mm3 (4.4-11.0)
[2020-02-28 06:59] VITALS: PULSE 85
[2020-02-28 07:16] LABS: ALB/GLOB Ratio 0.5 RATIO (0.9-2.4); AST(SGOT) 22 U/L (15-37); Alanine Aminotransfer ALT/SGPT 20 U/L (13-56); Albumin, Serum 1.9 g/dL (3.2-5.0); Alkaline Phosphatase 75 U/L (45-117); Anion Gap 9 (5-15); BUN 16 mg/dL (7-18); BUN/Creat Ratio 28.9 RATIO (10-20); Calcium,Total 7.6 mg/dL (8.5-10.1); Chloride 95 mmol/L (98-107); Creatinine, Serum 0.55 mg/dL (0.55-1.02); EST Glomerular Filtration Rate 112 mL/min (>60); Est Glom Filt Rate - Afr Amer 135 mL/min (>60); Estimated Creatinine Clearance 33.29 ml/min; Globulin 3.5 g/dL (2.2-4.2); Glucose 101 mg/dL (74-106); Potassium 3.1 mmol/L (3.5-5.1); Protein, Total 5.4 g/dL (6.4-8.2); Sodium Level 127 mmol/L (136-145)
--- NOTE | 2020-02-28 07:29 | PN.SURG_ITS ---
Patient Problems: Active and Suspected Problems (Last Reviewed 01/02/18 @ 15:[address] Abundio Juarez, DO) Acute cholecystitis (Acute) Hyponatremia (Acute) Subjective: Patient reports improvement since placement of her cholecystostomy tube. She was able to tolerate some dinner with no nausea or vomiting overnight. - Physical Exam Vitals/I&O's: Vital Signs Temp Pulse Resp BP Pulse Ox 99.3 F H 83 18 131/59 H 95 02/28/20 05:37 02/28/20 05:37 02/28/20 05:37 02/28/20 05:37 02/28/20 05:37 Oxygen Flow Rate (L/min) [4] 2 Oxygen Flow Rate (L/min) [3] 2 Oxygen Flow Rate (L/min) [2] 2 Oxygen Flow Rate (L/min) [1 ( 2 Initial Baseline)] Oxygen Flow Rate (L/min) 2 Oxygen Delivery Method [4] Nasal Cannula Oxygen Delivery Method [3] Nasal Cannula Oxygen Delivery Method [2] Nasal Cannula Oxygen Delivery Method [1 ( Nasal Cannula Initial Baseline)] Oxygen Delivery Method Room Air Weight: 144 lb 3.2 oz Body Mass Index (BMI) 27.2 Intake and Output for Last 24 Hours 02/26/20 02/27/20 02/28/20 23:59 23:59 23:59 Intake Total 1380.25 / 1680.25 2045 / 2045 Output Total 555 / 555 Balance 1380.25 / 1675.25 1490 / 1490 General: Alert, Oriented x3 Neck: No JVD Cardiovascular: Regular rate, Regular Rhythm Abdomen: Soft, Non-Distended, Tender - Tenderness around the drain site in the right upper quadrant Musculoskeletal: No Muscle Wasting Lymphatic: No Cervical, Supraclavicular, or Inguinal Adenopathy Neurological: Cranial nerves II-XII grossly intact Psych/Mental Status: Normal Affect Microbiology Past 72 Hours 02/27/20 13:50 Aspirate - Bile Gram Stain - Final 02/27/20 11:55 Mucosa - Nose SARS-CoV-2 Antigen (Rapid) - Final Laboratory Results 02/27/20 10:00: WBC 21.8 H, RBC 4.73, Hgb 13.8, Hct 40.1, MCV 84.8, MCH 29.2, MCHC 34.4, RDW Std Deviation 38.8, RDW Coeff of Tino 12.6, Plt Count 210, MPV 11.0, Immature Gran % (Auto) 1.100 H, Neut % (Auto) 90.0 H, Lymph % (Auto) 3.4 L , [place] % (Auto) 5.4, Eos % (Auto) 0.0, Baso % (Auto) 0.1, Absolute Neuts (auto) 19.5 H, Absolute Lymphs (auto) 0.75 L, Nucleated RBC % 0 02/27/20 10:00: Sodium 119 L*, Potassium 3.5, Chloride 83 L, Carbon Dioxide 30.0, Anion Gap 6, BUN 23 H, Creatinine 0.98, Estim Creat Clear Calc 33.97, Est GFR (MDRD) Af Amer 70, Est GFR (MDRD) Non-Af 58 L, BUN/Creatinine Ratio 23.4 H, Glucose 130 H, Calcium 8.9, Total Bilirubin 1.00, AST 17, ALT 18, Alkaline Phosphatase 84, Total Protein 7.3, Albumin 2.7 L, Globulin 4.6 H, Albumin/Globulin Ratio 0.6 L, Lipase 53 L 02/27/20 10:00: PT 15.2 H, INR 1.3, APTT 33.2 02/27/20 11:52: Urine Color Yellow, Urine Clarity Sl. Cloudy, Urine pH 6.0, Ur Specific [place] 1.015, Urine Protein 30 H, Urine Glucose (UA) Normal, Urine Ketones Negative, Urine Occult Blood 50 H, Urine Nitrite Negative, Urine Bilirubin Negative, Urine Urobilinogen 1 H, Ur Leukocyte Esterase 25 H, Urine RBC 0-5 SEEN, Urine WBC 0-5 SEEN, Ur Squamous Epith Cells 0-5 SEEN, Urine Bacteria 1+, Urine Mucus 0 SEEN 02/28/20 06:22: WBC 13.5 H, RBC 3.81 L, Hgb 11.2 L, Hct 32.3 L, MCV 84.8, MCH 29.4, MCHC 34.7, RDW Std Deviation 39.0, RDW Coeff of Tino 12.7, Plt Count 217, MPV 10.7, Immature Gran % (Auto) 0.400, Neut % (Auto) 87.6 H, Lymph % (Auto) 4.6 L, [place] % (Auto) 7.0, Eos % (Auto) 0.2, Baso % (Auto) 0.2, Absolute Neuts (auto) 11.8 H, Absolute Lymphs (auto) 0.62 L, Nucleated RBC % 0 02/28/20 06:22: Sodium 127 L, Potassium 3.1 L, Chloride 95 L, Carbon Dioxide 23.0, Anion Gap 9, BUN 16, Creatinine 0.55, Estim Creat Clear Calc 33.29, Est GFR (MDRD) Af Amer 135, Est GFR (MDRD) Non-Af 112, BUN/Creatinine Ratio 28.9 H, Glucose 101, Calcium 7.6 L, Total Bilirubin 0.80, AST 22, ALT 20, Alkaline Phosphatase 75, Total Protein 5.4 L, Albumin 1.9 L, Globulin 3.5, Albumin/Globulin Ratio 0.5 L Clinical Impression(s) from Imaging Studies Abdomen/Pelvis CT 02/27/20 09:51 IMPRESSION: Markedly distended gallbladder diffuse thickening of the wall and gallstones. Increased markings in the surrounding fat suggestive of acute cholecystitis. Electronically Signed: Delvin Paz MD at 12:08 EST , Service support , Abscess Drainage 02/27/20 12:34 IMPRESSION: 1. CT directed drainage of a fluid collection using CT image guidance and image documentation as described. 2. Conscious Sedation protocol utilized with independent monitoring Electronically Signed: Delvin Paz MD at 14:17 EST , Service support , Current Medications Acetaminophen (Acetaminophen 325 Mg Tablet) 650 mg PO Q6H PRN PRN PRN Reason: Pain Score 1-10/Temp > 100.7 F Aspirin (Aspirin 81 Mg Tab.Chew) 81 mg PO DAILY@0800 KLEBER Enoxaparin Sodium (Enoxaparin 40 Mg/0.4 Ml Syringe) 40 mg SC DAILY KLEBER Sodium Chloride () 250 mls @ 15 mls/hr IV .[id number] PRN PRN Reason: Saline Flush Last Infusion: 02/27/20 21:45 Dose: 0 mls/hr Documented by: Sodium Chloride () 250 mls @ 15 mls/hr IV .[id number] PRN PRN Reason: Additional IVPB Infusion Sodium Chloride () 1,000 mls @ 100 mls/hr IV .Q10H KLEBER Last Infusion: 02/28/20 05:37 Dose: 0 mls/hr Documented by: Piperacillin Sod/Tazobactam (Sod 3.375 gm/ Sodium Chloride) 50 mls @ 12.5 mls/hr IV Q8 KLEBER Last Admin: 02/28/20 05:37 Dose: 12.5 mls/hr Documented by: Lisinopril (Lisinopril 20 Mg Tablet) 20 mg PO DAILY KLEBER Melatonin (Melatonin 3 Mg Tablet) 3 mg PO QHS PRN PRN PRN Reason: INSOMNIA Ondansetron HCl (Ondansetron 4 Mg/2 Ml Vial) 4 mg IV Q8H PRN PRN PRN Reason: NAUSEA/VOMITING Sodium Chloride (0.9% Saline Lock 10 Ml Syringe) 10 - 40 ml IV UD PRN PRN Reason: SALINE FLUSH Medical Necessity - Tobacco Use Smoking Status: Never smoker Assessment/Plan All Active Problems (Last Reviewed 01/02/18 @ 15:[address] Abundio Juarez, DO) Acute cholecystitis (Acute) Hyponatremia (Acute) 79-year-old female with acute cholecystitis 1. Patient had cholecystostomy tube placed yesterday and reports improvement. She had no fevers or tachycardia overnight. She tolerated some food for dinner and had no nausea or vomiting after eating. Her white count is improved as is her hyponatremia. 2. If the patient continues to tolerate a diet she is okay to discharge today from my standpoint. I would recommend sending her home on Augmentin for 7 days. I would like the patient to follow-up with me in 1 week and continue cholecystostomy tube drainage. At that time if she is doing well I will s chedule her for an outpatient cholecystectomy once inflammation has time to dissipate. This will hopefully facilitate be able to perform a laparoscopic cholecystectomy for her. Patient understands and will follow up. All questions were answered. Felix Hough MD Pager: [facility] [address] [place] [address], [address] [place] [address] Office:
[2020-02-28 08:15] VITALS: BP 137/72; PULSE 92; RESP 18; TEMP 37; O2SAT 93
[2020-02-28 09:31] LABS: Magnesium 1.8 mg/dL (1.6-2.6); Phosphorus 2.3 mg/dL (2.5-4.9)
[2020-02-28] MEDS: Enoxaparin 40 MG/0.4 ML Syringe SC (09:39)
[2020-02-28] MEDS: Lisinopril 20 MG Tablet PO (09:39)
[2020-02-28] MEDS: Aspirin 81 MG TAB.CHEW PO (09:39)
--- NOTE | 2020-02-28 10:33 | PCM.DC ---
- Discharge Diagnoses Current Active Problems: Current Active and Chronic Problems (Last Reviewed 01/02/18 @ 15:[address] Abundio Juarez DO) Acute cholecystitis (Acute) Hyponatremia (Acute) You will use the following diet at home:: Cardiac Your food should be the consistency of: Regular Your liquids should be the consistency of: Regular/Thin Discharge Activity: Return to Normal Activity Call your doctor if you observe: Fever of 101 or Higher, Shortness of breath, Dizziness, Fainting spells, Swelling in the ankles, Chest pain, Increased palpitations (irregular heartbeat) Instructions: ED Cholecystitis, Confirmed, Caring for Your T-Tube Allergies/Adverse Reactions: Allergies No Known Allergies Allergy (Verified 02/27/20 09:19) Medications to take at Discharge Calcium (Elemental) [Os-Gibson 500] 600 mg PO DAILY 01/14/18 Cholecalciferol (VIT D3) [Vitamin D3] 1 tab PO DAILY 01/14/18 Potassium (Otc) [Potassium OTC] 99 mg PO DAILY 01/14/18 Acetaminophen [Tylenol] 1,000 mg PO Q8 #90 tablet 01/23/18 Aspirin [Aspirin, Baby] 81 mg PO DAILY 02/27/20 Lisinopril 20 mg PO DAILY 02/27/20 Vitamin E PO DAILY 02/27/20 Amoxicillin/Potassium Clav [Augmentin 875-125 Tablet] 1 ea PO BID #14 tab 02/28/20 The following prescriptions were given: Amoxicillin/Potassium Clav [Augmentin 875-125 Tablet] 1 ea PO BID #14 tab Transmission Status: Pending to [facility] Primary Care Physician: Abundio Juarez DO [Primary Care Provider] - Please follow up with your Primary Care Physician in: 3-5 days Test Results: Test results from this visit will be discussed in further detail at your follow-up appointment, if applicable. Please Follow Up With: Felix Hough MD When: 1 week
--- NOTE | 2020-02-28 12:41 | CM.UR ---
RN CM Assessment Introduced role of RN CM to patient.? Patient is alert, oriented and able?to participate in RN CM Assessment. ?Care providers, pharmacy, and demographics verified. Daughter, Juan F, at beside. Presentation: Abd pain, nausea and vomiting Admit Dx: Acute cholecystitis, Hyponatremia Re-Admit: no Barriers/Issues: none PCP: Abundio Juarez DO Specialists: None Preferred Pharmacy: [facility] Insurance: None, Dmitriy Aid Rx Benefit:? ?LNOK: Atilio, Son LW/HPOA: None and declined information. Living Arrangements:? Lives alone in a 3 story home. [facility] bedroom and bathroom are on first floor. ADL?s: States mostly independent. [facility] has 9 children who do help. Most live pretty close. Transportation: Buggy, with children or paid refuse driver. DME: cane and walker. HHC: Had home therapy before via [facility]. SNF: none Goal: Home, denies needs. DC PLAN: Home with cholecystostomy drain. Is to f/u with Dr. Hough in 1 week to plan OP surgery to remove gallbladder. Alerted patient that case management will remain available should any needs arise. Verb understanding. Srinath Rodriges RN, CCM.
[2020-02-28 13:09] VITALS: BP 131/76; PULSE 75; RESP 18; TEMP 36.4; O2SAT 93
--- NOTE | 2020-02-28 13:19 | PCM.DC.SUM ---
Discharge Date and Diagnosis - Problem List Patient Problems: Active and Suspected Problems (Last Reviewed 01/02/18 @ 15:[address] Abundio Juarez, DO) Acute cholecystitis (Acute) Hyponatremia (Acute) Date of Admission: 02/27/20 Date of Discharge: 02/28/20 - Primary Discharge Diagnosis Acute Problems: Active Problems (Last Reviewed 01/02/18 @ 15:[address] Abundio Juarez DO) Acute cholecystitis (Acute) Hyponatremia (Acute) - Secondary Discharge Diagnosis Chronic Problems: Chronic Problems (Last Reviewed 01/02/18 @ 15:[address] Abundio Juarez, DO) Heart murmur (Chronic) High blood pressure (Chronic) Hospital Course and Treatment Imaging Results: Clinical Impression(s) from Imaging Studies Abdomen/Pelvis CT 02/27/20 09:51 IMPRESSION: Markedly distended gallbladder diffuse thickening of the wall and gallstones. Increased markings in the surrounding fat suggestive of acute cholecystitis. Electronically Signed: Delvin Paz MD at 12:08 EST , Service support , Abscess Drainage 02/27/20 12:34 TECHNIQUE: CT sections were made through the abdomen and pelvis revealing distended gallbladder with diffuse wall thickening and findings indicative with acute cholecystitis.. The skin surface was prepped and draped in a sterile fashion. A 8.5 Kazakh drainage catheter was then inserted into the collection and formed into position. Additional fluid was aspirated for a total of approximately 95 mL of cloudy red fluid. The catheter was sutured into position to allow for continued drainage. Followup CT reveals good position of the catheter. IMPRESSION: 1. CT directed drainage of a fluid collection using CT image guidance and image documentation as described. 2. Conscious Sedation protocol utilized with independent monitoring Electronically Signed: Delvin Paz MD at 14:17 EST , Service support , Consults: General Surgery Operations: None Procedures: - - Cholecystostomy tube Summary of Care Provided: Per HPI: The patient is a 79 year old F with a PMH as below presents from home with abdominal pain, nausea, and vomiting that has been going on for the last 4 days. The pain is located on the right side of the abdomen, and she has not noticed anything that makes it better or worse. When she presented to the ER she was afebrile but had a leukocytosis as well as hyponatremia. CT scan of the abdomen demonstrated a markedly distended gallbladder with diffuse wall thickening. Surgery was consulted by the ED for evaluation and recommended a cholecystostomy tube and IV antibiotics. Hospital Course: 1. Sepsis secondary to acute cholecystitis -Given her age and how infected this gallbladder appears, general surgery recommended to have a percutaneous drainage and continued antibiotics -We will continue to monitor for improvement and will plan for discharge when she is improved. She will need to follow-up back as an outpatient for cholecystectomy once the inflammation has reduced -Continue with Zosyn, there was some concern that she potentially went into A. fib during the procedure therefore continue to monitor on telemetry and obtain an EKG -Heart rate remained normal and shows normal sinus. She felt much better today and wanted to go home, her white count decreased, and surgery felt that she would be stable for discharge if she was able to tolerate a diet. She was able to eat breakfast and lunch and therefore elected to go home. She will need to be on Augmentin for 7 days, and she will need to follow-up with surgery as an outpatient in about a week. I discussed with her the plan for discharge and she expressed understanding of the risk and benefits of going home and would like to go home. The cholecystostomy tube is in place, and her sepsis is resolved. Culture from the bile is growing gram-negative rods. Will adjust antibiotics if necessary 2. Hypertension/paroxysmal A. fib -Blood pressure is currently stable -Continue with lisinopril and aspirin -She states that she has had an abnormal heart rate for a while now, she does not really notice it. We will continue to monitor, currently she is normal sinus with a rate in the 80s however if she jumps back up in the 130s 140s we may need to consult cardiology for evaluation and management. At this time would hold off any type of anticoagulation given her recent procedure and the procedure she will need an week or so to remove her gallbladder. Patient Problems: Active and Suspected Problems (Last Reviewed 01/02/18 @ 15:[address] Abundio Juarez, DO) Acute cholecystitis (Acute) Hyponatremia (Acute) - Physical Exam Vitals/I&O's: Vital Signs Temp Pulse Resp BP Pulse Ox 97.5 F L 75 18 131/76 H 93 02/28/20 13:09 02/28/20 13:09 02/28/20 13:09 02/28/20 13:09 02/28/20 13:09 Oxygen Flow Rate (L/min) [4] 2 Oxygen Flow Rate (L/min) [3] 2 Oxygen Flow Rate (L/min) [2] 2 Oxygen Flow Rate (L/min) [1 ( 2 Initial Baseline)] Oxygen Flow Rate (L/min) 2 Oxygen Delivery Method [4] Nasal Cannula Oxygen Delivery Method [3] Nasal Cannula Oxygen Delivery Method [2] Nasal Cannula Oxygen Delivery Method [1 ( Nasal Cannula Initial Baseline)] Oxygen Delivery Method Room Air Weight: 144 lb 3.2 oz Body Mass Index (BMI) 27.2 Intake and Output for Last 24 Hours 02/26/20 02/27/20 02/28/20 23:59 23:59 23:59 Intake Total 1380.25 / 1680.25 3198 / 3198 Output Total 555 / 555 Balance 1380.25 / 1675.25 2643 / 2643 General: Alert, Oriented x3, Cooperative, No apparent distress HEENT: Atraumatic, PERRLA, EOMI, Normocephalic Oral: Moist Mucosa Neck: Supple, No JVD Lungs: Clear to auscultation, Normal air movement, No rhonchi, No wheeze, No rales Cardiovascular: Regular rate, Regular Rhythm, Normal S1, Normal S2, Murmur - CONSTANCE Abdomen: Soft, Non-Distended, No Hepato-splenomegaly, Tender - Around where the cholecystostomy tube is Extremities: No edema, Capillary Refill Less than 3 Seconds Skin: No rashes, No breakdown Neurological: Neuro grossly intact, Sensory exam intact to light touch and pain Psych/Mental Status: Normal Affect, Appropriate Microbiology Past 72 Hours 02/27/20 13:50 Aspirate - Bile Gram Stain - Final 02/27/20 13:50 Aspirate - Bile Wound Culture - Preliminary 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 02/27/20 11:55 Mucosa - Nose SARS-CoV-2 Antigen (Rapid) - Final Laboratory Results 02/28/20 06:22: WBC 13.5 H, RBC 3.81 L, Hgb 11.2 L, Hct 32.3 L, MCV 84.8, MCH 29.4, MCHC 34.7, RDW Std Deviation 39.0, RDW Coeff of Tino 12.7, Plt Count 217, MPV 10.7, Immature Gran % (Auto) 0.400, Neut % (Auto) 87.6 H, Lymph % (Auto) 4.6 L, Woodward % (Auto) 7.0, Eos % (Auto) 0.2, Baso % (Auto) 0.2, Absolute Neuts (auto) 11.8 H, Absolute Lymphs (auto) 0.62 L, Nucleated RBC % 0 02/28/20 06:22: Sodium 127 L, Potassium 3.1 L, Chloride 95 L, Carbon Dioxide 23.0, Anion Gap 9, BUN 16, Creatinine 0.55, Estim Creat Clear Calc 33.29, Est GFR (MDRD) Af Amer 135, Est GFR (MDRD) Non-Af 112, BUN/Creatinine Ratio 28.9 H, Glucose 101, Calcium 7.6 L, Total Bilirubin 0.80, AST 22, ALT 20, Alkaline Phosphatase 75, Total Protein 5.4 L, Albumin 1.9 L, Globulin 3.5, Albumin/Globulin Ratio 0.5 L 02/28/20 06:22: Phosphorus 2.3 L, Magnesium 1.8 Discharge Activity: Return to Normal Activity Call your doctor if you observe: Fever of 101 or Higher, Shortness of breath, Dizziness, Fainting spells, Swelling in the ankles, Chest pain, Increased palpitations (irregular heartbeat) Home Medications: Medications to take at Discharge Calcium (Elemental) [Os-Gibson 500] 600 mg PO DAILY 01/14/18 Cholecalciferol (VIT D3) [Vitamin D3] 1 tab PO DAILY 01/14/18 Potassium (Otc) [Potassium OTC] 99 mg PO DAILY 01/14/18 Acetaminophen [Tylenol] 1,000 mg PO Q8 #90 tablet 01/23/18 Aspirin [Aspirin, Baby] 81 mg PO DAILY 02/27/20 Lisinopril 20 mg PO DAILY 02/27/20 Vitamin E PO DAILY 02/27/20 Amoxicillin/Potassium Clav [Augmentin 875-125 Tablet] 1 ea PO BID #14 tab 02/28/20 Following Prescriptions Were Given to Patient: Amoxicillin/Potassium Clav [Augmentin 875-125 Tablet] 1 ea PO BID #14 tab Transmission Status: Received by [facility] Primary Care Physician: Abundio Juarez DO [Primary Care Provider] - Please follow up with your Primary Care Physician in: 3-5 days Please Follow Up With: Felix Hough MD When: 1 week Patient Instructions: Caring for Your T-Tube, ED Cholecystitis, Confirmed Disposition: Home Minutes spent on discharge:: 35 Patient Condition:: Stable Medical Necessity - Tobacco Use Smoking Status: Never smoker Meaningful Use Info Meaningful Use Diagnoses (Choose all that apply): None applicable Inpatient E&M: 01448 Disch Hosp
== END 2020-02-28 14:25 | disposition home or self-care (01) | DRG 872 ==
LOC: ED 12:54 → MS3 13:39
PROVIDERS: Surgery; Admitting Provider Family Medicine; Emergency Provider Emergency Medicine; PCP Family Medicine; Visit Provider Family Medicine
DX: A41.9 Sepsis, unspecified organism (principal); K81.0 Acute cholecystitis; E87.1 Hypo-osmolality and hyponatremia; I48.0 Paroxysmal atrial fibrillation; I10 Essential (primary) hypertension; R01.1 Cardiac murmur, unspecified; K82.8 Other specified diseases of gallbladder
CPT/HCPCS: 20501; 74177; 77012; 80053; 81001; 83690; 83735; 84100; 85025; 85610; 85730; 87070; 87075; 87077; 87186; 87205; 87426; 93005; 99155; 99156; 99284; J7030; J7040; J7050; Q9967; A4216; J2405

== ENCOUNTER 2020-04-06 14:10 | Inpatient (IN) | payer SELFPAY ==
[2020-03-30 15:06] VITALS: BMI 26.7
[2020-04-05 10:34] LABS: Hematocrit 37.1 % (37-47); Hemoglobin 11.7 g/dL (12.0-15.0); Mean Corp Hgb Conc 31.5 g/dL (32-36); Mean Corpuscular Hgb 27.3 pg (27.0-32.0); Mean Corpuscular Volume 86.5 fL (81-99); Mean Platelet Vol. 9.4 fl (6.2-12.0); Platelet Count 379 K/mm3 (150-450); RBC Distribution Width CV 13.7 % (11.6-14.6); RBC Distribution Width SD 43.7 fl (35.1-43.9); Red Blood Count 4.29 M/mm3 (4.2-5.4); White Blood Count 10.1 K/mm3 (4.4-11.0)
[2020-04-05 11:10] LABS: Anion Gap 6 (5-15); BUN 14 mg/dL (7-18); BUN/Creat Ratio 17.3 RATIO (10-20); Calcium,Total 9.2 mg/dL (8.5-10.1); Chloride 96 mmol/L (98-107); Creatinine, Serum 0.81 mg/dL (0.55-1.02); EST Glomerular Filtration Rate 72 mL/min (>60); Est Glom Filt Rate - Afr Amer 87 mL/min (>60); Glucose 100 mg/dL (74-106); Potassium 3.6 mmol/L (3.5-5.1); Sodium Level 134 mmol/L (136-145)
[2020-04-06] VITALS (19 sets, daily range): BP systolic 90–153; BP diastolic 40–96; PULSE 85–132; RESP 16–18; TEMP 36–36.9; O2SAT 94–100; BMI 26.5
[2020-04-06] MEDS: Lactated Ringers 1,000 ML 100 ML IV (10:21)
--- NOTE | 2020-04-06 10:32 | PCM.HP.BLA ---
Problem List (1) Acute cholecystitis Status: Acute History and Physical Date of Admission: 04/06/20 Intake Intake Visit Reasons: [facility] ER 02/26 CHOLECYSTOSTOMY TUBE Chief Complaint: cholecystitis Allergies No Known Allergies Allergy (Verified 03/05/20 10:27) Medications Calcium (Elemental) [Os-Gibson 500] 600 mg PO DAILY 01/14/18 [History Confirmed 03/05/20] Cholecalciferol (VIT D3) [Vitamin D3] 1 tab PO DAILY 01/14/18 [History Confirmed 03/05/20] Potassium (Otc) [Potassium OTC] 99 mg PO DAILY 01/14/18 [History Confirmed 03/05/20] Acetaminophen [Tylenol] 1,000 mg PO Q8 #90 tab 01/23/18 [Rx Confirmed 03/05/20] Aspirin [Aspirin, Baby] 81 mg PO DAILY 02/27/20 [History Confirmed 03/05/20] Lisinopril 20 mg PO DAILY 02/27/20 [History Confirmed 03/05/20] Vitamin E PO DAILY 02/27/20 [History Confirmed 03/05/20] Amoxicillin/Potassium Clav [Augmentin 875-125 Tablet] 1 ea PO BID #14 tab 02/28/20 [Rx Confirmed 03/05/20] [facility] Medical History (Updated 03/05/20 @ 10:28 by Heather Davidson) Acute cholecystitis (Acute) Hyponatremia (Acute) Heart murmur (Chronic) High blood pressure (Chronic) s/p cholecystostomy tube (Acute) Surgical History History of (Acute) History of hernia repair (Acute) Family History Brother Brain tumor Mother Heart disease Father Heart disease Social History (Updated 03/05/20 @ 10:[address] Felix Hough MD) Smoking Status: Never smoker alcohol intake: never substance use type: does not use what type of physical activity do you participate in: none HPI HPI HPI: JR ALVARADO, is a 79 F who presents to the office today for HPI HPI Surgical H&P: Yes HPI: JR ALVARADO, is a 79 F who presents to the office today for Right upper quadrant pain. The patient was recently admitted to the hospital had a cholecystostomy tube placed. Patient reports she is doing much better since being discharged. She is not having any nausea or vomiting and only has pain at the drain site. She is not having any nausea or vomiting currently. She has no fevers or chills. The drain has been putting out minimal fluid. ROS General General: No weight change or fatigue Cardio Cardiovascular: No murmur, pacemaker, heart disease, atrial fibrillation, high blood pressure, heart attack, heart stent, palpitations, shortness of breat with exertion or chest pain Psych Psychiatric: No depression or anxiety Resp Respiratory: No shortness of breath, No sleep apnea, No cough, No COPD, No asthma, No emphysema, No wheezing Gastro Gastrointestinal: Yes abdominal pain, No nausea or vomiting, No diarrhea, No constipation, No blood in stool, No acid reflux, No hemorrhoids, No ulcers, Yes gallbladder problem, No black,tarry stools Duy Hematologic: No blood thinners Exam Const General: cooperative Orientation: alert, oriented x3 Resp Effort & Inspection: normal respiratory effort Auscultation: clear to auscultation bilaterally Cardio Rate: regular rate Rhythm: regular rhythm Heart Sounds: no murmurs GI Inspection: non-distended Palpation: soft, nontender Assessment & Plan Problems 1. Acute cholecystitis K81.0 Plan The patient had distended gallbladder with acute cholecystitis while in the hospital. Cholecystostomy tube was placed and red fluid was returned. It was cultured and did come back as bacteria. She was started on antibiotic. She is feeling much better and her cholecystostomy tube is putting out minimal output. It is nonbilious. I believe she has a fully obstructed cystic duct and I did remove her drain today. I believe that the drain is not putting out any output because she has a fully obstructed cystic duct and I do not believe it is helping at all and I did remove it today in the office. If the patient worsens at all she will return to my office or call or present to the emergency room. Otherwise I will plan for laparoscopic cholecystectomy in 4 weeks. I discussed the procedure in detail with the patient. I discussed the risks, benefits, and alternatives of the procedure. I discussed the risks including but not limited to bleeding, infection, injury to surrounding organs such as the liver, bile duct, bowels. I did discuss the possibility of having to convert to an open procedure as well as the possibility that if any injuries occurred this may necessitate further surgery at a tertiary care center. I did discuss the increased risk of open procedure due to the inflammation present. Felix Hough MD Pager: [facility] [address] [place] [address], [address] [place] [address] Office: I have re-examined the patient. There are no clinical changes since date of exam.
--- NOTE | 2020-04-06 11:00 | GALL_PTH ---
PATIENT: JR ALVARADO LOC: MS3 U#:[id number] AGE/SX: 80/F ROOM: [facility] [place] RE04/06/[address]: Dr. Aminata Ríos MD : [id number] BED: 1 DIS: 04/09/2020 SPEC #: [id number] RECD: 04/06/20 14:45 STATUS: ADRIANE REQ #: [id number] ALEXA: 04/06/20 11:[address]: Felix Hough DEPT: SURGICAL PATHOLOGY RECD BY: Ibeth Humphrey ENTERED: 04/07/20 08:44 SP TYPE: GALLBLADDE OTHR DR: MD Dr. Aminata Cox MD Dr. Douglas R Brown, DO Dr. Joseph Agyepong, MD Tissues: A - Small intestine mucous membrane B - Soft tissues, NOS C - Gallbladder, NOS Procedures: Surgery Specimen Level III Surgery Specimen Level V Comments: @ Ordering doctor for SUIII edited from to @ enrique BALBUENA at 04/07/20 4005 @ Ordering doctor for SUIV edited from to @ by SREE at 04/07/20 1335 @ Submitting doctor edited from to @ by SREE at 04/07/20 1330 HEADER OPERATION: Laparoscopic converted to open cholecystectomy with IOC PRE-OP DIAGNOSIS: Acute cholecystitis TISSUE SUBMITTED: A - Small bowel, B - Abscess wall, C - Gallbladder MICROSCOPIC DIAGNOSIS A. Small bowel, segmental resection: Segment of small bowel with focal area of serosal acute and chronic inflammation, histiocytic reaction and abscess formation. Small bowel donut, no pathologic diagnosis. B. Abscess wall: Pieces of fibroconnective tissue with acute and chronic inflammation and granulation tissue reaction. C. Gallbladder, cholecystectomy: Acute necrotizing and gangrenous cholecystitis and cholelithiasis. JAY JAY:shari 04/09/2020 MICROSCOPIC DESCRIPTION Slides are reviewed. GROSS DESCRIPTION A - Received in fixative is one container labeled with the patient's name and designated small bowel. The specimen consists of a segment of small bowel with attached mesentery measuring 15 cm in length. Both resection margins are stapled. No mucosal lesion is identified. Also present in the container is a donut-shaped piece of tissue measuring 4.5 x 2 x 1 cm. Sections will be submitted after fixation. / JAY JAY:shari 04/07/20 No mucosal lesion is identified. The serosal surface shows an extensive ragged area. Sprinkler Inspector sections are submitted in five cassettes as follows: 1 - donut-shaped piece of tissue, 2 - resection margins, 3 & 4 - bowel wall including ragged serosal surface, 5 - portion of bowel wall and mesenteric tissue. / SJ:shari 04/08/20 B - Received in fixative is one container labeled with the patient's name and designated abscess wall. The specimen consists of two pieces of hemorrhagic adipose tissue measuring 6 x 5 x 4 cm and 6 x 4 x 0.5 cm. Sections do not reveal any mass lesion. One of the surfaces show a focal area of hemorrhagic cut surfaces. No mass lesion is identified. Sprinkler Inspector sections are submitted in two cassettes. / SJ:shari 04/07/20 C - Received is one container labeled with the patient's name and designated gallbladder. The specimen consists of a gallbladder that is distended and markedly enlarged and measures 12 x 7 x 5 cm. The area close to the cystic duct is previously opened. No bile is noted. The gallbladder is distended with multiple brown-light yellow stones measuring in aggregate 11 x 9 x 3 cm and 0.3 to 1 cm in greatest dimension. Also present in the container are multiple carrera-light brownish-black stones measuring in aggregate 5.5 x 5 x 2 cm. The gallbladder wall measures up to 0.4 cm in thickness. Sprinkler Inspector sections from the gallbladder and the cystic duct are submitted in one cassette. / SJ:shari 04/07/20 TC:2 CPT: 11836 x2, 62388
--- NOTE | 2020-04-06 11:00 | RAD_ITS ---
STUDY: INTRAOPERATIVE CHOLANGIOGRAM.. REASON FOR EXAM: Female, 80 years old. PAIN FLUOROSCOPY TIME (if supplied): ( 25.7 seconds ) minutes/seconds. A cine loop of 167 images was submitted. TECHNIQUE: An intraoperative cholangiogram was performed by the surgeon. Imaging was provided. COMPARISON: None. FINDINGS: The intra and extrahepatic biliary ducts are unremarkable. There is free flow of contrast into the duodenum. No intraluminal filling defect is seen. RAD/Cholangiogram/ O R,Initial IMPRESSION: Unremarkable intraoperative cholangiogram. Electronically Signed: Delvin Paz MD at 9:32 EST , Service support ,
[2020-04-06] MEDS: Cefotetan 2 GM in 0.9% NS 100 ML IV (11:01)
[2020-04-06] MEDS: Bupiv/Epi 0.25% 30 ML Vial (12:30)
--- NOTE | 2020-04-06 13:47 | PCM.OPRPT ---
Problem List (1) Acute cholecystitis Status: Acute Report of Operation Date of Procedure: 04/06/20 Pre-Operative Diagnosis: History of acute cholecystitis Post-Operative Diagnosis: Gangrenous cholecystitis with abscess Surgery/Procedure Performed:: Laparoscopic converted open cholecystectomy with cholangiogram and small bowel resection Specimen's removed: Gallbladder and contents. Small bowel. Abscess cavity Drains: KARIE to bulb suction Estimated Blood Loss (mL): 100 Description of Procedure: Patient was brought back to the operating room and general anesthesia was induced. The abdomen was prepped and draped in usual sterile fashion. A midline incision was made inferior to the umbilicus and deepened to the fascia. The fascia was elevated and incised. Port was placed into the abdomen and the abdomen was insufflated to 15 mmHg. A 5 mm port was placed in the subxiphoid space under direct visualization. The patient had a very inflamed enlarged gallbladder adherent to the abdominal wall and bowel. I was unable to proceed laparoscopically. The ports were removed and the operation was converted to open. The incision was extended superiorly from inferior to the umbilicus until the subxiphoid area was reached. This was deepened to the fascia and the fascia was opened using electrocautery. A wound protector was placed. Using retraction the gallbladder was dissected free circumferentially manually from the abscess cavity. The area was suctioned and there was purulence present. There is a lot of purulence coming from the abscess cavity. The gallbladder was necrotic and opened at the body of the gallbladder. It was clamped with a Fani and the stones were removed. The small bowel was tightly adherent to the abscess cavity and required resection. This area of the small bowel was isolated and the mesentery was removed from the abscess cavity sharply. Next an area distal to the small bowel was chosen and a small hemostat was placed in the mesentery. The stapler was placed through the defect and the small bowel was divided using a 75 NETTA. Next in the similar fashion prior to this defect the small bowel was divided using a 75 NETTA. A small sharonda was made in each area of the staple lines and the stapler was used to make a [id number] functional end-to-end small bowel anastomosis. Babcocks were used to reapproximate the staple line and a TX 60 stapler was used to close the enterostomy. A 3-0 silk suture was used as a crotch suture. There was good blood flow to the staple line. The mesenteric defect was closed using a running 3-0 Vicryl suture. The small bowel anastomosis was returned into the abdomen. The gallbladder was traced to the liver bed and divided. The lumen of the cystic duct was identified and a small catheter was placed through it. A Fani clamp was placed over the catheter. Next cholangiograms were performed. The catheter was present in the cystic duct and the proximal and distal common bile duct did fill and there was filling of the duodenum. The Fani clamp and the catheter were removed. A right angle clamp was placed over the cystic duct and cystic artery and an 0 silk suture was used to ligate both. There was no leakage of bile or bleeding. The hemostasis of the gallbladder fossa was obtained using electrocautery. Next the abscess cavity was dissected free from its adhesions to the colon and another piece of small bowel. There was some abscess cavity left on the colon as to not disrupt the colon wall. The abdomen was irrigated copiously and suctioned dry with several liters of saline. A drain was placed through the right upper quadrant through poke hole incision. The drain was placed across the gallbladder fossa and into the abscess cavity. This was sutured to the skin using a 3-0 nylon suture and placed to bulb suction. The omentum was draped over the abdominal contents and the fascia was closed with a running #1 PDS suture from the top and bottom meeting in the middle. The subcutaneous tissue was irrigated and suctioned dry. Hemostasis was obtained. The skin was stapled closed leaving Telfa simon in the incision line. The small port in the subxiphoid space was closed with a 4-0 Monocryl suture. Dressings were then applied. The patient was then awoken and taken to PACU in stable condition. - Admit VTE Documentation VTE Mechan Device Prophylaxis: SCD's
[2020-04-06] MEDS: 0.9% Normal Saline 1,000 ML 60 ML IV (16:50)
[2020-04-06] MEDS: Morphine 2 MG/ML Syringe IV (16:57)
--- NOTE | 2020-04-06 20:55 | EKG12_ITS ---
Test Reason : TACHYCARDIA Blood Pressure : / mmHG Vent. Rate : 120 BPM Atrial Rate : 166 BPM P-R Int : 000 ms QRS Dur : 092 ms QT Int : 306 ms P-R-T Axes : 000 -12 185 degrees QTc Int : [address] & T wave abnormality, consider lateral ischemia or digitalis effect Abnormal ECG Confirmed by DEMARCUS RAMOS, PILY ([id number]), web content editor OFELIA DUNN ([id number]) on 04/08/2020 1:22:57 PM Referred By: Felix Hough Confirmed By:PILY TRACY MD
--- NOTE | 2020-04-06 21:18 | CON.PCM_ITS ---
<Kiesha Stephens - Last Filed: 04/06/20 22:00> Problem List (1) Atrial fibrillation Status: Acute (2) Acute cholecystitis Status: Acute (3) Hyponatremia Status: Acute (4) Heart murmur Status: Chronic (5) High blood pressure Status: Chronic Qualifiers: Hypertension type: essential hypertension Qualified Code(s): I10 - Essential (primary) hypertension Reason for Consult Date of Consultation: 04/06/20 Reason for Consultation: New onset A. fib with RVR History of Present Illness: The patient is a 80 year old F who earlier today underwent a cholecystectomy with Dr. Hough and upon returning to the floor had an elevated heart rate. Nursing reports that approximately 8:30 PM patient was noted to have A. fib with RVR on telemetry, patient is asymptomatic at this time with a stable blood pressure 122/82. An EKG was obtained which showed A. fib with RVR. Dr. Hough was notified at that time and a 500 cc bolus was ordered along with a hospitalist consult for medical management. I personally reviewed EKG which demonstrates A. fib with RVR with a heart rate of 122.] Past Medical History Past Medical History (Chronic Problems): Chronic Problems (Last Reviewed 04/06/20 @ 21:34 by Kiesha Stephens NP-Thu) Heart murmur (Chronic) High blood pressure (Chronic) Medical History: Medical History (Last Reviewed 04/06/20 @ 21:34 by Kiesha Stephens NP-C) Acute cholecystitis (Acute) K81.0 Hyponatremia (Acute) E87.1 Heart murmur (Chronic) R01.1 High blood pressure (Chronic) I10 s/p cholecystostomy tube 02/2020 Allergies No Known Allergies Allergy (Verified 04/06/20 09:56) Home Medications: Ambulatory Orders Medication Instructions Recorded Calcium (Elemental) [Os-Gibson 500] 600 mg PO DAILY 01/14/18 Cholecalciferol (VIT D3) [Vitamin 1 tab PO DAILY 01/14/18 D3] Potassium (Otc) [Potassium OTC] 99 mg PO DAILY 01/14/18 Aspirin [Aspirin, Baby] 81 mg PO DAILY 02/27/20 Vitamin E 1 tab PO DAILY 02/27/20 lisinopril 20 mg tablet 20 mg PO DAILY #90 tab 03/30/20 Acetaminophen [Tylenol] 1,000 mg PO Q8 PRN 04/01/20 Beta-Carotene [Beta Carotene] 10,000 unit PO DAILY 04/01/20 Cyanocobalamin (Vitamin B-12) 1,000 mcg PO DAILY 04/01/20 [Vitamin B-12] Magnesium Oxide [Magnesium] 500 mg PO DAILY 04/01/20 Ubidecarenone [Coq-10] 100 mg PO DAILY 04/01/20 Vitamin O 1 drp PO DAILY 04/01/20 Zinc 50 mg PO DAILY 04/01/20 Surgical History: Surgical History (Last Reviewed 04/06/20 @ 21:35 by Kiesha Stephens SAWMILL WORKER-C) History of Z98.891 History of hernia repair Z98.890, Z87.19 History of hip replacement Z96.649 Smoking Status: Never smoker Tobacco Use: Non-smoker - *Family History Maternal Family History: Family History (Last Reviewed 04/06/20 @ 21:35 by Kiesha Stephens NP-C) Brother Brain tumor Mother Heart disease Father Heart disease Review of Systems Constitutional: Denies: Chills, Fever, Weight Change HEENT: Denies: Head Aches, Sinus Congestion, Sinus Drainage Cardiovascular: Denies: Chest Pain, Chest Pressure, Chest Tightness, Light Headedness, Palpitations, Syncope Respiratory: Denies: Cough, Shortness of Breath, Shortness of breath at rest, Sputum production Gastrointestinal: Reports: Abdominal Pain - Postsurgical managed with medications. Denies: Nausea, Vomiting Genitourinary: Denies: Dysuria Musculoskeletal: Denies: Joint Pain, Joint Tenderness Skin: Reports: Wounds - Midline surgical, drsg dry and intact, - - KARIE drain in place. Denies: Rash Neurological: Denies: Numbness, Tingling, Focal weakness Psychiatric: Denies: Anxiety, Depression, Homicidal Ideations, Suicidal Ideations Hematologic/ Lymphatic: Denies: Easy Bruising, Easy Bleeding Patient Problems: Active and Suspected Problems (Last Reviewed 04/06/20 @ 21:34 by Kiesha Stephens SAWMILL WORKER-C) Atrial fibrillation (Acute) Acute cholecystitis (Acute) Hyponatremia (Acute) - Physical Exam Vitals/I&O's: Vital Signs Temp Pulse Resp BP Pulse Ox 98.4 F 114 H 18 122/82 H 94 04/06/20 20:15 04/06/20 20:15 04/06/20 20:15 04/06/20 20:15 04/06/20 20:15 Oxygen Delivery Method Room Air Weight: 136 lb 0.403 oz Body Mass Index (BMI) 26.5 Intake and Output for Last 24 Hours 04/04/20 04/05/20 04/06/20 23:59 23:59 23:59 Intake Total 1462 / 1462 Output Total 330 / 330 Balance 1132 / 1132 General: Alert, Oriented x3, Cooperative HEENT: Atraumatic, PERRLA, EOMI, Normocephalic Neck: Supple, No JVD, Negative Carotid Bruits Lungs: Clear to auscultation, Normal air movement Cardiovascular: Irregular Rate, Tachycardic, - - A. fib with RVR per EKG Abdomen: Bowel Sounds Present, Hypoactive Bowel Sounds, Tender - Postop Extremities: No edema, Capillary Refill Less than 3 Seconds Skin: Incision - Midline abdominal with KARIE drain present Musculoskeletal: No Tenderness to Palpation of Joints or Extremities Neurological: Cranial nerves II-XII grossly intact Psych/Mental Status: Normal Affect, Appropriate Microbiology Past 72 Hours 04/05/20 10:05 Interface Orders SARS-CoV-2 Antigen (Rapid) - Final Current Medications Acetaminophen (Acetaminophen 325 Mg Tablet) 650 mg PO Q4H PRN PRN PRN Reason: Pain 1-10 or Fever Aspirin (Aspirin 81 Mg Tab.Chew) 81 mg PO DAILY@0800 [facility] Enoxaparin Sodium (Enoxaparin 40 Mg/0.4 Ml Syringe) 40 mg SC DAILY [facility] Sodium Chloride () 1,000 mls @ 60 mls/hr IV .[id number] [facility] Last Infusion: 04/06/20 21:02 Dose: 0 mls/hr Documented by: Pantoprazole Sodium 40 mg/ (Sodium Chloride) 110 mls @ 330 mls/hr IV Q24 [facility] Last Infusion: 04/06/20 17:32 Dose: Infused Documented by: Piperacillin Sod/Tazobactam (Sod 3.375 gm/ Sodium Chloride) 50 mls @ 12.5 mls/hr IV Q8 [facility] Sodium Chloride () 500 mls @ 999 mls/hr IV .Q31M ONE Stop: 04/06/20 21:23 Last Admin: 04/06/20 21:01 Dose: 999 mls/hr Documented by: Lisinopril (Lisinopril 20 Mg Tablet) 20 mg PO DAILY [facility] Metoprolol Tartrate (Metoprolol Tartrate 5 Mg/5 Ml Vial) 5 mg IV X1 ONE Stop: 04/06/20 21:18 Morphine Sulfate (Morphine 2 Mg/Ml Syringe) 2 - 4 mg IV Q2H PRN PRN PRN Reason: Pain Score 4-10 Last Admin: 04/06/20 16:57 Dose: 2 mg Documented by: Ondansetron HCl (Ondansetron 4 Mg/2 Ml Vial) 4 mg IV Q6H PRN PRN PRN Reason: NAUSEA Sodium Chloride (0.9% Saline Lock 10 Ml Syringe) 10 - 40 ml IV UD PRN PRN Reason: SALINE FLUSH Assessment/Plan All Active Problems (Last Reviewed 04/06/20 @ 21:34 by Kiesha Stephens, DEB-C) Atrial fibrillation (Acute) Acute cholecystitis (Acute) Hyponatremia (Acute) 1 Atrial fibrillation with RVR-Metoprolol 5 mg IV x1 and initiate metoprolol 25 mg p.o. twice daily first dose now. Will check TSH and magnesium. Potassium chloride 40 mEq p.o. x1 ordered. Will obtain echo in morning. 2. Acute cholecystitis with cholecystectomy-KARIE drain in place. Pain is well controlled with ordered pain medications. 3. Hypertension?stable. 4. Hyponatremia?normal saline at 60 mL/h. Repeat a.m. labs ordered DVT prophylaxis-subcu Lovenox and SCDs. <Vlad Garcia - Last Filed: 04/06/20 22:15> Reason for Consult History of Present Illness: The patient is a 80 year old F [] Past Medical History Medical History: Medical History (Last Reviewed 04/06/20 @ 21:34 by Kiesha Stephens NP-C) Acute cholecystitis (Acute) K81.0 Hyponatremia (Acute) E87.1 Heart murmur (Chronic) R01.1 High blood pressure (Chronic) I10 s/p cholecystostomy tube 02/2020 Allergies No Known Allergies Allergy (Verified 04/06/20 09:56) Surgical History: Surgical History (Last Reviewed 04/06/20 @ 21:35 by Kiesha Stephens NP-C) History of Z98.891 History of hernia repair Z98.890, Z87.19 History of hip replacement Z96.649 - *Family History Maternal Family History: Family History (Last Reviewed 04/06/20 @ 21:35 by FESTUS Lunsford) Brother Brain tumor Mother Heart disease Father Heart disease - Physical Exam Vitals/I&O's: Vital Signs Temp Pulse Resp BP Pulse Ox 98.4 F 126 H 18 122/82 H 94 04/06/20 20:15 04/06/20 21:34 04/06/20 20:15 04/06/20 20:15 04/06/20 20:15 Oxygen Delivery Method Room Air Weight: 61.7 kg Body Mass Index (BMI) 26.5 Intake and Output for Last 24 Hours 04/04/20 04/05/20 04/06/20 23:59 23:59 23:59 Intake Total 1462 / 1462 Output Total 330 / 330 Balance 1132 / 1132 Microbiology Past 72 Hours 04/05/20 10:05 Interface Orders SARS-CoV-2 Antigen (Rapid) - Final Laboratory Results 04/06/20 10:06: Magnesium Pending, TSH Pending Current Medications Acetaminophen (Acetaminophen 325 Mg Tablet) 650 mg PO Q4H PRN PRN PRN Reason: Pain 1-10 or Fever Aspirin (Aspirin 81 Mg Tab.Chew) 81 mg PO DAILY@0800 [facility] Enoxaparin Sodium (Enoxaparin 40 Mg/0.4 Ml Syringe) 40 mg SC DAILY [facility] Sodium Chloride () 1,000 mls @ 60 mls/hr IV .[id number] [facility] Last Infusion: 04/06/20 21:02 Dose: 0 mls/hr Documented by: Pantoprazole Sodium 40 mg/ (Sodium Chloride) 110 mls @ 330 mls/hr IV Q24 [facility] Last Infusion: 04/06/20 17:32 Dose: Infused Documented by: Piperacillin Sod/Tazobactam (Sod 3.375 gm/ Sodium Chloride) 50 mls @ 12.5 mls/hr IV Q8 [facility] Lisinopril (Lisinopril 20 Mg Tablet) 20 mg PO DAILY [facility] Metoprolol Tartrate (Metoprolol Tartrate 25 Mg Tablet) 25 mg PO BID [facility] Morphine Sulfate (Morphine 2 Mg/Ml Syringe) 2 - 4 mg IV Q2H PRN PRN PRN Reason: Pain Score 4-10 Last Admin: 04/06/20 16:57 Dose: 2 mg Documented by: Ondansetron HCl (Ondansetron 4 Mg/2 Ml Vial) 4 mg IV Q6H PRN PRN PRN Reason: NAUSEA Sodium Chloride (0.9% Saline Lock 10 Ml Syringe) 10 - 40 ml IV UD PRN PRN Reason: SALINE FLUSH Assessment/Plan Patient was seen and examined. Patient denies any shortness of breath. She denies palpitation. She reports abdominal pain with moving. Patient is a alert and oriented x3. Lungs clear to auscultate Irregularly irregular heart rate and rhythm. Abdomen with a dressing, dry and intact. KARIE emanating under abdominal dressing. Abdomen with bowel sounds present and tender. Extremities without edema, clubbing or cyanosis Assessment and plan Case was discussed with Kiesha Stephens NP and I agree with assessment and plan as above. 12-lead EKG was reviewed and it showed A. fib with RVR. Likewise telemetry monitoring strip showed A. fib with RVR. Review of PCP notes shows that patient has known A. fib and is on aspirin for her A. fib. Patient to follow-up with PCP in the long-term for either anticoagulation or aspirin. Review of orders show that general surgery is restarting patient's aspirin on 04/07/2020 and I agree. Aspirin was held prior to surgery. Patient was on the magnesium p.o. at home. If magnesium level is low will replete. Inpatient E&M: [id number] [facility] Hosp L2
--- NOTE | 2020-04-06 21:30 | ECHOCS_ITS ---
Reason For Study: AFib s/p small bowel resection (04-06-2020) Procedure This was a 2D Doppler, Color Flow transthoracic echocardiogram. The study was technically difficult. Patient scanned sitting upright due to recent bowel resection. Contrast injection performed. Unable to obtain subcostal images due to bandages from surgery. Exam performed portable in patient room. Left Ventricle Normal LV size. Left ventricular systolic function is normal. The estimated ejection fraction is 55 %. Unable to assess diastolic dysfunction. No regional wall motion abnormalities noted. Right Ventricle Normal RV size. Normal systolic function. Atria The left atrium is moderately enlarged. The right atrium is mildly enlarged. No doppler evidence for ASD. Mitral Valve There is mild mitral annular calcification. Extension of the mitral annular calcification on the base of the posterior mitral valve leaflet. The mitral papillary muscle appears thickened and/or calcified. Moderate (2+) mitral valve insufficiency. Tricuspid Valve Normal tricuspid valve. Moderately severe (3+) tricuspid valve insufficiency. Right ventricular systolic pressure estimated to be 40 mmHg. Aortic Valve Trisinus/trileaflet aortic valve. Mild diffuse aortic valve thickening. Mild diffuse aortic valve calcification. Mild aortic stenosis. Pulmonic Valve The pulmonic valve is not well visualized. Great Vessels Normal sized aortic root. Calcified aortic root. Pericardium/Pleural No pericardial effusion. Medication Diluted definity 3ml given slow IV push to enhance endocardial definition. MMode/2D Measurements & Calculations LVIDd: 4.4 cm IVSd: 1.2 cm LVOT diam: 2.0 cm LVIDs: 3.0 cm LVPWd: 1.1 cm RVDd: 3.6 cm FS: 31.3 % LVOT area: 3.0 cm2 Ao root diam: 3.9 cm LAV(MOD-bp): 82.6 ml Aortic Valve Planimetry: 0.89 cm2 ACS: 0.83 cm LAV(MOD-bp) Indexed: 52.1 ml/m2 LA dimension: 4.3 cm LAV(MOD-sp2): 80.7 ml LAV(MOD-sp4): 82.9 ml LA A4 area: 25.4 cm2 RA A4 area: 18.1 cm2 Doppler Measurements & Calculations MV E max edin: 110.5 cm/sec Ao V2 max: 236.4 cm/sec LV V1 max: 100.5 cm/sec Ao max P.4 mmHg LV V1 max P.0 mmHg Ao V2 mean: 145.2 cm/sec LV V1 mean P.0 mmHg Ao mean P.1 mmHg LV V1 mean: 65.7 cm/sec Ao V2 VTI: 42.7 cm LV V1 VTI: 17.0 cm RISHABH(I,D): 1.2 cm2 RISHABH(V,D): 1.3 cm2 MR max edin: 517.3 cm/sec SV(LVOT): 51.8 ml PA V2 max: 82.7 cm/sec MR max P.0 mmHg MR mean edin: 398.1 cm/sec MR mean P.7 mmHg MR VTI: 153.5 cm TR max edin: 303.1 cm/sec TR max P.8 mmHg Interpretation Summary The study was technically difficult. Left ventricular systolic function is normal. The estimated ejection fraction is 55 %. The left atrium is moderately enlarged. The right atrium is mildly enlarged. There is mild mitral annular calcification. Extension of the mitral annular calcification on the base of the posterior mitral valve leaflet. The mitral papillary muscle appears thickened and/or calcified. Moderate (2+) mitral valve insufficiency. Moderately severe (3+) tricuspid valve insufficiency. Mild aortic stenosis. Calcified aortic root. Right ventricular systolic pressure estimated to be 40 mmHg. Unable to assess diastolic dysfunction. Ordering Physician: Kiesha Stephens Referring Physician: Felix Hough Performed By: Osito Dill RCS
[2020-04-06] MEDS: Metoprolol Tartrate 5 MG/5 ML Vial IV (21:34)
[2020-04-06] MEDS: Potassium Chloride Oral Tablet 20 MEQ 40 MEQ PO (22:31)
[2020-04-06] MEDS: Metoprolol Tartrate 25 MG Tablet PO (22:31)
[2020-04-06 23:12] LABS: Magnesium 1.4 mg/dL (1.6-2.6); Thyroid Stim Hormone (TSH) 0.89 uIU/mL (0.358-3.74)
[2020-04-07] VITALS (10 sets, daily range): BP systolic 100–143; BP diastolic 68–94; PULSE 83–100; RESP 18–20; TEMP 36.4–37.1; O2SAT 93–94
[2020-04-07] MEDS: Magnesium Chloride 64 MG Delay Rel.Tablet 128 MG PO ×3 (00:32→22:52)
[2020-04-07] MEDS: Ondansetron 4 MG/2 ML Vial IV (03:39)
[2020-04-07 06:51] LABS: Absolute Lymphocyte Count 1.17 X10^3/uL (0.83-4.51); Absolute Neutrophil Count 15.1 X10^3/uL (2.0-7.7); Basophil# 0.03 X10^3/uL; Basophil% 0.2 % (0-1); Hematocrit 32.4 % (37-47); Hemoglobin 10.5 g/dL (12.0-15.0); Lymphocyte # 1.17 X10^3/ul (4.0); Lymphocyte % 6.8 % (19-41); Mean Corp Hgb Conc 32.4 g/dL (32-36); Mean Corpuscular Hgb 27.9 pg (27.0-32.0); Mean Corpuscular Volume 86.2 fL (81-99); Mean Platelet Vol. 9.5 fl (6.2-12.0); Monocyte# 0.73 X10^3/uL; Monocyte% 4.3 % (0-10); NRBC Flagged by Analyzer 0 % (0-5); Neutrophil # 15.11 X10^3/uL (2.7-7.7); Platelet Count 353 K/mm3 (150-450); RBC Distribution Width CV 14.2 % (11.6-14.6); RBC Distribution Width SD 45.1 fl (35.1-43.9); Red Blood Count 3.76 M/mm3 (4.2-5.4); White Blood Count 17.2 K/mm3 (4.4-11.0)
[2020-04-07 07:19] LABS: ALB/GLOB Ratio 0.5 RATIO (0.9-2.4); AST(SGOT) 39 U/L (15-37); Alanine Aminotransfer ALT/SGPT 27 U/L (13-56); Alkaline Phosphatase 53 U/L (45-117); Anion Gap 6 (5-15); BUN 14 mg/dL (7-18); BUN/Creat Ratio 17.7 RATIO (10-20); Chloride 102 mmol/L (98-107); Creatinine, Serum 0.79 mg/dL (0.55-1.02); EST Glomerular Filtration Rate 74 mL/min (>60); Est Glom Filt Rate - Afr Amer 90 mL/min (>60); Estimated Creatinine Clearance 31.15 ml/min; Globulin 3.9 g/dL (2.2-4.2); Glucose 138 mg/dL (74-106); Magnesium 1.4 mg/dL (1.6-2.6); Potassium 4.4 mmol/L (3.5-5.1); Protein, Total 5.9 g/dL (6.4-8.2); Sodium Level 136 mmol/L (136-145)
--- NOTE | 2020-04-07 07:46 | PCM.PN.HOSP ---
Patient Problems: Active and Suspected Problems (Last Reviewed 04/06/20 @ 21:34 by Kiesha Stephens, HABILITATIVE INTERVENTIONIST-C) Atrial fibrillation (Acute) Acute cholecystitis (Acute) Hyponatremia (Acute) Reason for Visit: Follow-up on post-op management Subjective: Patient was seen and examined. She feels fine. Denied any fever chills or dizziness. Vitals/I&O's: Vital Signs Temp Pulse Resp BP Pulse Ox 98.7 F 99 18 100/68 94 04/07/20 03:45 04/07/20 05:00 04/07/20 03:45 04/07/20 03:45 04/07/20 03:45 Oxygen Delivery Method Room Air Weight: 61.7 kg Body Mass Index (BMI) 26.5 Intake and Output for Last 24 Hours 04/05/20 04/06/20 04/07/20 23:59 23:59 23:59 Intake Total 196 / 7 175 / 175 Output Total 330 / 590 460 / 460 Balance 1632 / 1447 -285 / -285 General: Alert, Oriented x3, Cooperative, No apparent distress HEENT: Atraumatic, PERRLA, EOMI, Normocephalic Oral: Moist Mucosa Neck: Supple Lungs: Clear to auscultation, Normal air movement Cardiovascular: Regular rate, Normal S1, Normal S2, Irregular Rate, Murmur - 3/6 heard in parasternal region Abdomen: Bowel Sounds Present, Soft, Non-Distended, No Hepato-splenomegaly, Tender - dressing over the RUQ, tender, KARIE drain has slightly bloody- serosanguinous fluid Extremities: No edema Skin: No rashes Musculoskeletal: No Tenderness to Palpation of Joints or Extremities Lymphatic: No Cervical, Supraclavicular, or Inguinal Adenopathy Neurological: Cranial nerves II-XII grossly intact, Neuro grossly intact Psych/Mental Status: Normal Affect, Appropriate Microbiology Past 72 Hours 04/05/20 10:05 Interface Orders SARS-CoV-2 Antigen (Rapid) - Final Laboratory Results 04/06/20 22:18: Magnesium 1.4 L, TSH 0.89 04/07/20 06:30: WBC 17.2 H, RBC 3.76 L, Hgb 10.5 L, Hct 32.4 L, MCV 86.2, MCH 27.9, MCHC 32.4, RDW Std Deviation 45.1 H, RDW Coeff of Tino 14.2, Plt Count 353, MPV 9.5, Immature Gran % (Auto) 0.700, Neut % (Auto) 88.0 H, Lymph % (Auto) 6.8 L, [place] % (Auto) 4.3, Eos % (Auto) 0.0, Baso % (Auto) 0.2, Absolute Neuts (auto) 15.1 H, Absolute Lymphs (auto) 1.17, Nucleated RBC % 0 04/07/20 06:30: Sodium 136, Potassium 4.4, Chloride 102, Carbon Dioxide 28.0, Anion Gap 6, BUN 14, Creatinine 0.79, Estim Creat Clear Calc 31.15, Est GFR (MDRD) Af Amer 90, Est GFR (MDRD) Non-Af 74, BUN/Creatinine Ratio 17.7, Glucose 138 H, Calcium 8.0 L, Magnesium 1.4 L, Total Bilirubin 0.60, AST 39 H, ALT 27, Alkaline Phosphatase 53, Total Protein 5.9 L, Albumin 2.0 L, Globulin 3.9, Albumin/Globulin Ratio 0.5 L Current Medications Acetaminophen (Acetaminophen 325 Mg Tablet) 650 mg PO Q4H PRN PRN PRN Reason: Pain 1-10 or Fever Aspirin (Aspirin 81 Mg Tab.Chew) 81 mg PO DAILY@0800 REPLACED BY [facility] Enoxaparin Sodium (Enoxaparin 40 Mg/0.4 Ml Syringe) 40 mg SC DAILY REPLACED BY [facility] Sodium Chloride () 1,000 mls @ 60 mls/hr IV .[id number] REPLACED BY [facility] Last Infusion: 04/06/20 21:32 Dose: 60 mls/hr Documented by: Pantoprazole Sodium 40 mg/ (Sodium Chloride) 110 mls @ 330 mls/hr IV Q24 REPLACED BY [facility] Last Infusion: 04/06/20 17:32 Dose: Infused Documented by: Piperacillin Sod/Tazobactam (Sod 3.375 gm/ Sodium Chloride) 50 mls @ 12.5 mls/hr IV Q8 REPLACED BY [facility] Last Admin: 04/07/20 05:51 Dose: 12.5 mls/hr Documented by: Magnesium Sulfate () 4 gm in 100 mls @ 25 mls/hr IV X1 ONE Stop: 04/07/20 11:59 Lisinopril (Lisinopril 20 Mg Tablet) 20 mg PO DAILY REPLACED BY [facility] Magnesium Chloride (Magnesium Chloride 64 Mg Delay Rel.Tablet) 128 mg PO BID REPLACED BY [facility] Last Admin: 04/07/20 00:32 Dose: 128 mg Documented by: Metoprolol Tartrate (Metoprolol Tartrate 25 Mg Tablet) 25 mg PO BID REPLACED BY [facility] Last Admin: 04/06/20 22:31 Dose: 25 mg Documented by: Morphine Sulfate (Morphine 2 Mg/Ml Syringe) 2 - 4 mg IV Q2H PRN PRN PRN Reason: Pain Score 4-10 Last Admin: 04/06/20 16:57 Dose: 2 mg Documented by: Ondansetron HCl (Ondansetron 4 Mg/2 Ml Vial) 4 mg IV Q6H PRN PRN PRN Reason: NAUSEA Last Admin: 04/07/20 03:39 Dose: 4 mg Documented by: Sodium Chloride (0.9% Saline Lock 10 Ml Syringe) 10 - 40 ml IV UD PRN PRN Reason: SALINE FLUSH STROKE Vital Signs/Narrative: Vital Signs Pulse 04/07/20 05:00 99 Medical Necessity - Tobacco Use Smoking Status: Never smoker Tobacco Use: Non-smoker Assessment/Plan All Active Problems (Last Reviewed 04/06/20 @ 21:34 by Kiesha Stephens, HABILITATIVE INTERVENTIONIST-C) Atrial fibrillation (Acute) Acute cholecystitis (Acute) Hyponatremia (Acute) 1. POD #1 status post laparoscopic/open cholecystectomy with cholangiogram with small bowel resection for gangrenous cholecystitis with abscess Pain is fairly controlled, will continue per general surgery recommendations WBC count is 17.2, continue on IV Zosyn Repeat blood work in a.m. 2. Atrial fibrillation, history of paroxysmal atrial fibrillation, [id number] score of 4 Patient should be on chronic anticoagulation ideally. Previous home aspirin on hold prior to surgery. Unclear of any contraindication to anticoagulation Will recommend discharged with Eliquis or any of the novel oral anticoagulants if bleed risk is minimal and with surgery is ok with that Continue on metoprolol, continue to monitor 3. Tricuspid regurgitation, noted on 2D echo 3+ tricuspid valve regurgitation/moderate pulmonary hypertension Will need to follow-up with cardiology in the outpatient 4. Hypomagnesemia, magnesium is 1.4, replaced, recheck in a.m. 5. Hypertension, controlled, continue lisinopril, metoprolol 6. Anemia, slight drop in hemoglobin, not significant, likely hemodilution, versus postop loss We will check iron stores to optimize patient's management Repeat blood work in am 7. DVT prophylaxis- Lovenox subcu Inpatient E&M: 70161 Subs Hosp L3
[2020-04-07] MEDS: Magnesium Sulfate 4gm/100mL 4 GM/100 ML IV.SOLN. IV (10:19)
[2020-04-07] MEDS: 0.9% Normal Saline 1,000 ML 60 ML IV (10:24)
[2020-04-07] MEDS: Enoxaparin 40 MG/0.4 ML Syringe SC (10:26)
[2020-04-07] MEDS: Aspirin 81 MG TAB.CHEW PO (10:26)
[2020-04-07] MEDS: Lisinopril 20 MG Tablet PO (10:27)
[2020-04-07] MEDS: Metoprolol Tartrate 25 MG Tablet PO ×2 (10:30→22:53)
--- NOTE | 2020-04-07 10:40 | CASEMGMT ---
RN CM Face to Face with patient for initial transition planning/care coordination assessment. RN CM introduced self and role at [facility]. Patient lying in bed, alert and oriented, son at bedside. Patient willing to participate in assessment and is able to answer all questions appropriately. Care providers, pharmacy, and demographics verified. Patient wishes to discharge home, denies need for home health at this time. Patient states she has no further needs or concerns at this time. CM to follow for discharge planning needs that may arise. PCP: Abundio Juarez Specialists: surgeon Zhane Hough Pharmacy: [facility] Insurance: None Prescription Benefit: None Living Will/HPOA: None LNOK: sons, daughter Living Arrangements: Patient lives alone in a 2 story home with bed and bath on main level of home. 11 steps and railing to enter the home. Patient states she is independent at home. Family lives next door and assist patient. Transportation: Driving service DME/HHC: Patient states she has a rollator and cane at home. Patient has previously had [facility] at home. Disposition Plan: Patient to discharge home with family support and follow-up plans in place. Tiera REDDY, RN, CM
[2020-04-07 16:16] LABS: Ferritin 258 ng/mL (8-252); Iron 9 ug/dL (50-170); Iron Binding Capacity,Total 169 ug/dL (250-450); PERCENT IRON SATURATION 5.3 % (15.0-55.0)
[2020-04-08] VITALS (11 sets, daily range): BP systolic 138–160; BP diastolic 81–101; PULSE 82–108; RESP 16; TEMP 36.4–37.1; O2SAT 93–96
[2020-04-08 05:55] LABS: Absolute Lymphocyte Count 1.08 X10^3/uL (0.83-4.51); Absolute Neutrophil Count 16.3 X10^3/uL (2.0-7.7); Basophil# 0.03 X10^3/uL; Basophil% 0.2 % (0-1); Eosinophil# 0.01 X10^3/uL; Eosinophils% 0.1 % (0-5); Hematocrit 29.3 % (37-47); Hemoglobin 9.4 g/dL (12.0-15.0); Lymphocyte # 1.08 X10^3/ul (4.0); Lymphocyte % 5.9 % (19-41); Mean Corp Hgb Conc 32.1 g/dL (32-36); Mean Corpuscular Hgb 27.7 pg (27.0-32.0); Mean Corpuscular Volume 86.4 fL (81-99); Mean Platelet Vol. 9.4 fl (6.2-12.0); Monocyte# 0.66 X10^3/uL; Monocyte% 3.6 % (0-10); NRBC Flagged by Analyzer 0 % (0-5); Neutrophil # 16.34 X10^3/uL (2.7-7.7); Neutrophil % 89.6 % (47-70); Platelet Count 298 K/mm3 (150-450); RBC Distribution Width CV 14.3 % (11.6-14.6); RBC Distribution Width SD 45.2 fl (35.1-43.9); Red Blood Count 3.39 M/mm3 (4.2-5.4); White Blood Count 18.2 K/mm3 (4.4-11.0)
[2020-04-08 06:32] LABS: ALB/GLOB Ratio 0.5 RATIO (0.9-2.4); AST(SGOT) 25 U/L (15-37); Alanine Aminotransfer ALT/SGPT 19 U/L (13-56); Albumin, Serum 1.9 g/dL (3.2-5.0); Alkaline Phosphatase 59 U/L (45-117); Anion Gap 8 (5-15); BUN 16 mg/dL (7-18); BUN/Creat Ratio 28.9 RATIO (10-20); Chloride 102 mmol/L (98-107); Creatinine, Serum 0.55 mg/dL (0.55-1.02); EST Glomerular Filtration Rate 112 mL/min (>60); Est Glom Filt Rate - Afr Amer 135 mL/min (>60); Estimated Creatinine Clearance 31.15 ml/min; Globulin 3.9 g/dL (2.2-4.2); Glucose 111 mg/dL (74-106); Magnesium 2.2 mg/dL (1.6-2.6); Potassium 3.6 mmol/L (3.5-5.1); Protein, Total 5.8 g/dL (6.4-8.2); Sodium Level 135 mmol/L (136-145)
--- NOTE | 2020-04-08 08:37 | PN.SURG_ITS ---
Patient Problems: Active and Suspected Problems (Last Reviewed 04/06/20 @ 21:34 by Kiesha Stephens, PLANER STONE-C) Atrial fibrillation (Acute) Acute cholecystitis (Acute) Hyponatremia (Acute) Subjective: Patient reports she is passing flatus. She had no nausea or vomiting overnight. Her abdominal pain seems to be improving. - Physical Exam Vitals/I&O's: Vital Signs Temp Pulse Resp BP Pulse Ox 98.6 F 93 16 138/81 H 93 04/08/20 03:26 04/08/20 06:00 04/08/20 03:26 04/08/20 03:26 04/08/20 03:26 Oxygen Delivery Method Room Air Weight: 136 lb 0.403 oz Body Mass Index (BMI) 26.5 Intake and Output for Last 24 Hours 04/06/20 04/07/20 04/08/20 23:59 23:59 23:59 Intake Total 1962 / 2037 1513 / 1533 90 / 90 Output Total 330 / 590 980 / 1180 400 / 400 Balance 1632 / 1447 533 / 353 -310 / -310 General: Alert, Oriented x3 Neck: No JVD Cardiovascular: Regular rate, Regular Rhythm Abdomen: Soft, Non-Distended Microbiology Past 72 Hours 04/05/20 10:05 Interface Orders SARS-CoV-2 Antigen (Rapid) - Final Laboratory Results 04/07/20 06:30: Iron 9 L, TIBC 169 L, Iron Saturation 5.3 L, Ferritin 258 H 04/08/20 05:38: WBC 18.2 H, RBC 3.39 L, Hgb 9.4 L, Hct 29.3 L, MCV 86.4, MCH 27.7, MCHC 32.1, RDW Std Deviation 45.2 H, RDW Coeff of Tino 14.3, Plt Count 298, MPV 9.4, Immature Gran % (Auto) 0.600, Neut % (Auto) 89.6 H, Lymph % (Auto) 5.9 L, [place] % (Auto) 3.6, Eos % (Auto) 0.1, Baso % (Auto) 0.2, Absolute Neuts (auto) 16.3 H, Absolute Lymphs (auto) 1.08, Nucleated RBC % 0 04/08/20 05:38: Sodium 135 L, Potassium 3.6, Chloride 102, Carbon Dioxide 25.0, Anion Gap 8, BUN 16, Creatinine 0.55, Estim Creat Clear Calc 31.15, Est GFR (MDRD) Af Amer 135, Est GFR (MDRD) Non-Af 112, BUN/Creatinine Ratio 28.9 H, Glucose 111 H, Calcium 8.0 L, Magnesium 2.2, Total Bilirubin 0.60, AST 25, ALT 19, Alkaline Phosphatase 59, Total Protein 5.8 L, Albumin 1.9 L, Globulin 3.9, Albumin/Globulin Ratio 0.5 L Current Medications Acetaminophen (Acetaminophen 325 Mg Tablet) 650 mg PO Q4H PRN PRN PRN Reason: Pain 1-10 or Fever Aspirin (Aspirin 81 Mg Tab.Chew) 81 mg PO DAILY@0800 [facility] Last Admin: 04/07/20 10:26 Dose: 81 mg Documented by: Enoxaparin Sodium (Enoxaparin 40 Mg/0.4 Ml Syringe) 40 mg SC DAILY [facility] Last Admin: 04/07/20 10:26 Dose: 40 mg Documented by: Piperacillin Sod/Tazobactam (Sod 3.375 gm/ Sodium Chloride) 50 mls @ 12.5 mls/hr IV Q8 [facility] Last Admin: 04/08/20 06:12 Dose: 12.5 mls/hr Documented by: Sodium Chloride () 1,000 mls @ 15 mls/hr IV .Q48H [facility] Lisinopril (Lisinopril 20 Mg Tablet) 20 mg PO DAILY [facility] Last Admin: 04/07/20 10:27 Dose: 20 mg Documented by: Magnesium Chloride (Magnesium Chloride 64 Mg Delay Rel.Tablet) 128 mg PO BID [facility] Last Admin: 04/07/20 22:52 Dose: 128 mg Documented by: Metoprolol Tartrate (Metoprolol Tartrate 25 Mg Tablet) 25 mg PO BID [facility] Last Admin: 04/07/20 22:53 Dose: 25 mg Documented by: Morphine Sulfate (Morphine 2 Mg/Ml Syringe) 2 - 4 mg IV Q2H PRN PRN PRN Reason: Pain Score 4-10 Last Admin: 04/06/20 16:57 Dose: 2 mg Documented by: Ondansetron HCl (Ondansetron 4 Mg/2 Ml Vial) 4 mg IV Q6H PRN PRN PRN Reason: NAUSEA Last Admin: 04/07/20 03:39 Dose: 4 mg Documented by: Pantoprazole Sodium (Pantoprazole Sodium 40 Mg Tablet) 40 mg PO DAILY [facility] Sodium Chloride (0.9% Saline Lock 10 Ml Syringe) 10 - 40 ml IV UD PRN PRN Reason: SALINE FLUSH Medical Necessity - Tobacco Use Smoking Status: Never smoker Tobacco Use: Non-smoker Assessment/Plan All Active Problems (Last Reviewed 04/06/20 @ 21:34 by Kiesha Stephens, PLANER STONE-C) Atrial fibrillation (Acute) Acute cholecystitis (Acute) Hyponatremia (Acute) 80-year-old female status post open cholecystectomy and small bowel resection 1. Patient is starting to pass flatus and I will advance her to a clear liquid diet. Her KARIE is serosanguineous. Her white count has gone up from 17 to 18. I will continue Zosyn. I removed her simon from her incision and change her dressing. KARIE will be removed tomorrow if it continues to be serosanguineous. Encouraged ambulation and incentive spirometer. 2. The hospitalist team advised starting her on anticoagulation. I have started her on Lovenox and her aspirin but I would recommend 1 more day of waiting to see what tomorrow's hemoglobin is and to ensure that it is not continuing to drift downward. Felix Hough MD Pager: [facility] [address] [place] [address], [address] [place] [phone] Office:
[2020-04-08] MEDS: Aspirin 81 MG TAB.CHEW PO (08:45)
[2020-04-08] MEDS: 0.9% Normal Saline 1,000 ML 15 ML IV (08:46)
[2020-04-08] MEDS: Enoxaparin 40 MG/0.4 ML Syringe SC (10:10)
[2020-04-08] MEDS: Lisinopril 20 MG Tablet PO (10:10)
[2020-04-08] MEDS: Metoprolol Tartrate 25 MG Tablet PO ×2 (10:11→21:03)
[2020-04-08] MEDS: Magnesium Chloride 64 MG Delay Rel.Tablet 128 MG PO ×2 (10:11→21:03)
[2020-04-08] MEDS: Pantoprazole Sodium 40 MG Tablet PO (10:22)
--- NOTE | 2020-04-08 14:45 | CASEMGMT ---
GILAD SRINIVASAN NOTE: Anticipate pt may discharge home on Eliquis for A-fib. Pt does not have prescription coverage/benefits. GILDA SRINIVASAN to room to talk with pt. Pt's son-in-law, Preston, is @ bedside. Pt states Preston manages her finances and to discuss this with him. Preston made aware that pt may discharge home on Eliquis and made aware of approx cost of medication. He was made aware that 30-day free trial offer/savings card can be provided but after the 30 days, cost for medication would be pt's responsibility. He states he feels pt would qualify for financial assistance and wishes to look into what pt may qualify for. Preston given [facility] information and was also made aware Eliquis card and Application for Financial Assist through [employer] for the Eliquis will also be provided if pt is discharged home on Eliquis. Questions answered. He voices understanding. Pt made aware, if pt does not qualify for financial assistance through either [facility] or [employer]), to discuss other options of anti-coagulation with pt's PCP. He voices understanding and denies having further questions. Cooper REDDY RN, CM
--- NOTE | 2020-04-08 16:46 | PN_ITS ---
Patient Problems: Active and Suspected Problems (Last Reviewed 04/06/20 @ 21:34 by Kiesha Stephens, SECURITY OPERATIONS CENTER OPERATOR-C) Atrial fibrillation (Acute) Acute cholecystitis (Acute) Hyponatremia (Acute) Reason for Visit: Follow-up on post-op management Objective: Physical exam: General: Alert, Oriented x3, Cooperative, No apparent distress HEENT: Atraumatic, PERRLA, EOMI, Normocephalic Oral: Moist Mucosa Neck: Supple Lungs: Clear to auscultation, Normal air movement Cardiovascular: Regular rate, Normal S1, Normal S2, Irregular Rate, Murmur - 3/6 heard in parasternal region Abdomen: Bowel Sounds Present, Soft, Non-Distended, No Hepato-splenomegaly, Tender - dressing over the RUQ, tender, KARIE drain has slightly bloody- serosanguinous fluid Extremities: No edema Skin: No rashes Musculoskeletal: No Tenderness to Palpation of Joints or Extremities Lymphatic: No Cervical, Supraclavicular, or Inguinal Adenopathy Neurological: Cranial nerves II-XII grossly intact, Neuro grossly intact Psych/Mental Status: Normal Affect, Appropriate Vitals/I&O's: Vital Signs Temp Pulse Resp BP Pulse Ox 97.5 F L 94 16 155/90 H 96 04/08/20 16:00 04/08/20 16:00 04/08/20 16:00 04/08/20 16:00 04/08/20 16:00 Oxygen Delivery Method Room Air Weight: 61.7 kg Body Mass Index (BMI) 26.5 Intake and Output for Last 24 Hours 04/06/20 04/07/20 04/08/20 23:59 23:59 23:59 Intake Total 1962 / 2037 1513 / 1533 590 / 590 Output Total 330 / 590 980 / 1180 400 / 400 Balance 1632 / 1447 533 / 353 190 / 190 Laboratory Results 04/08/20 05:38: WBC 18.2 H, RBC 3.39 L, Hgb 9.4 L, Hct 29.3 L, MCV 86.4, MCH 27.7, MCHC 32.1, RDW Std Deviation 45.2 H, RDW Coeff of Tino 14.3, Plt Count 298, MPV 9.4, Immature Gran % (Auto) 0.600, Neut % (Auto) 89.6 H, Lymph % (Auto) 5.9 L, [place] % (Auto) 3.6, Eos % (Auto) 0.1, Baso % (Auto) 0.2, Absolute Neuts (auto) 16.3 H, Absolute Lymphs (auto) 1.08, Nucleated RBC % 0 04/08/20 05:38: Sodium 135 L, Potassium 3.6, Chloride 102, Carbon Dioxide 25.0, Anion Gap 8, BUN 16, Creatinine 0.55, Estim Creat Clear Calc 31.15, Est GFR (MDRD) Af Amer 135, Est GFR (MDRD) Non-Af 112, BUN/Creatinine Ratio 28.9 H, Glucose 111 H, Calcium 8.0 L, Magnesium 2.2, Total Bilirubin 0.60, AST 25, ALT 19, Alkaline Phosphatase 59, Total Protein 5.8 L, Albumin 1.9 L, Globulin 3.9, Albumin/Globulin Ratio 0.5 L Current Medications Acetaminophen (Acetaminophen 325 Mg Tablet) 650 mg PO Q4H PRN PRN PRN Reason: Pain 1-10 or Fever Aspirin (Aspirin 81 Mg Tab.Chew) 81 mg PO DAILY@0800 [facility] Last Admin: 04/08/20 08:45 Dose: 81 mg Documented by: Enoxaparin Sodium (Enoxaparin 40 Mg/0.4 Ml Syringe) 40 mg SC DAILY [facility] Last Admin: 04/08/20 10:10 Dose: 40 mg Documented by: Piperacillin Sod/Tazobactam (Sod 3.375 gm/ Sodium Chloride) 50 mls @ 12.5 mls/hr IV Q8 [facility] Last Admin: 04/08/20 14:22 Dose: 12.5 mls/hr Documented by: Sodium Chloride () 1,000 mls @ 15 mls/hr IV .Q48H [facility] Last Admin: 04/08/20 08:46 Dose: 15 mls/hr Documented by: Lisinopril (Lisinopril 20 Mg Tablet) 20 mg PO DAILY [facility] Last Admin: 04/08/20 10:10 Dose: 20 mg Documented by: Magnesium Chloride (Magnesium Chloride 64 Mg Delay Rel.Tablet) 128 mg PO BID [facility] Last Admin: 04/08/20 10:11 Dose: 128 mg Documented by: Metoprolol Tartrate (Metoprolol Tartrate 25 Mg Tablet) 25 mg PO BID [facility] Last Admin: 04/08/20 10:11 Dose: 25 mg Documented by: Morphine Sulfate (Morphine 2 Mg/Ml Syringe) 2 - 4 mg IV Q2H PRN PRN PRN Reason: Pain Score 4-10 Last Admin: 04/06/20 16:57 Dose: 2 mg Documented by: Ondansetron HCl (Ondansetron 4 Mg/2 Ml Vial) 4 mg IV Q6H PRN PRN PRN Reason: NAUSEA Last Admin: 04/07/20 03:39 Dose: 4 mg Documented by: Pantoprazole Sodium (Pantoprazole Sodium 40 Mg Tablet) 40 mg PO DAILY [facility] Last Admin: 04/08/20 10:22 Dose: 40 mg Documented by: Sodium Chloride (0.9% Saline Lock 10 Ml Syringe) 10 - 40 ml IV UD PRN PRN Reason: SALINE FLUSH STROKE Vital Signs/Narrative: Vital Signs Temp Pulse Resp BP Pulse Ox 04/08/20 16:00 97.5 F L 94 16 155/90 H 96 Medical Necessity - Tobacco Use Smoking Status: Never smoker Tobacco Use: Non-smoker Assessment/Plan All Active Problems (Last Reviewed 04/06/20 @ 21:34 by Kiesha Stephens, SECURITY OPERATIONS CENTER OPERATOR-C) Atrial fibrillation (Acute) Acute cholecystitis (Acute) Hyponatremia (Acute) 1. POD #2 status post laparoscopic/open cholecystectomy with cholangiogram with small bowel resection for gangrenous cholecystitis with abscess Pain is fairly controlled; will continue per general surgery recommendations WBC count is 18.2, continue on IV Zosyn Repeat blood work in a.m. 2. Atrial fibrillation, history of paroxysmal atrial fibrillation, [id number] score of 4 Will recommend discharged with Eliquis or any of the novel oral anticoagulants if bleed risk is minimal and with surgery is ok with that Continue on metoprolol, continue to monitor 3. ricuspid regurgitation, noted on 2D echo- 3+ tricuspid valve regurgitation/moderate pulmonary hypertension Follow-up with cardiology in the outpatient. 4. Hypomagnesemia, resolved, replaced, recheck in a.m. 5. Hypertension, controlled, continue lisinopril, metoprolol 6. Iron deficiency anemia, will check FOBT, give IV iron 200mg IV x1 Will start patient on po iron. 7. DVT prophylaxis- Lovenox subcu Inpatient E&M: 97308 [facility] Hosp L2
[2020-04-08] MEDS: Ferrous Sulfate 325 MG Tablet PO (18:02)
[2020-04-09] VITALS (7 sets, daily range): BP systolic 128–153; BP diastolic 69–90; PULSE 74–96; RESP 16–18; TEMP 36.7–37; O2SAT 95
[2020-04-09] MEDS: Acetaminophen 325 MG Tablet 650 MG PO ×2 (01:39→14:43)
[2020-04-09 06:14] LABS: Absolute Lymphocyte Count 1.31 X10^3/uL (0.83-4.51); Absolute Neutrophil Count 11.7 X10^3/uL (2.0-7.7); Basophil# 0.05 X10^3/uL; Basophil% 0.4 % (0-1); Eosinophil# 0.13 X10^3/uL; Eosinophils% 0.9 % (0-5); Hematocrit 27.6 % (37-47); Lymphocyte # 1.31 X10^3/ul (4.0); Lymphocyte % 9.4 % (19-41); Mean Corp Hgb Conc 32.6 g/dL (32-36); Mean Corpuscular Hgb 27.8 pg (27.0-32.0); Mean Corpuscular Volume 85.2 fL (81-99); Mean Platelet Vol. 9.4 fl (6.2-12.0); Monocyte# 0.66 X10^3/uL; Monocyte% 4.7 % (0-10); NRBC Flagged by Analyzer 0 % (0-5); Neutrophil # 11.71 X10^3/uL (2.7-7.7); Neutrophil % 83.8 % (47-70); Platelet Count 316 K/mm3 (150-450); RBC Distribution Width SD 44.1 fl (35.1-43.9); Red Blood Count 3.24 M/mm3 (4.2-5.4)
[2020-04-09 06:42] LABS: Anion Gap 5 (5-15); BUN 14 mg/dL (7-18); BUN/Creat Ratio 27.9 RATIO (10-20); Calcium,Total 7.7 mg/dL (8.5-10.1); Chloride 101 mmol/L (98-107); EST Glomerular Filtration Rate 125 mL/min (>60); Est Glom Filt Rate - Afr Amer 152 mL/min (>60); Estimated Creatinine Clearance 31.15 ml/min; Glucose 100 mg/dL (74-106); Potassium 3.5 mmol/L (3.5-5.1); Sodium Level 133 mmol/L (136-145)
--- NOTE | 2020-04-09 09:44 | PCM.PN.HOSP ---
Patient Problems: Active and Suspected Problems (Last Reviewed 04/06/20 @ 21:34 by Kiesha Stephens, TEMPORARY OFFICE ASSISTANT-C) Atrial fibrillation (Acute) Acute cholecystitis (Acute) Hyponatremia (Acute) Reason for Visit: Follow-up on post-op management Subjective: Patient was seen and examined. She feels improved. KARIE drain removed. Denies any fever or chills Objective: Physical exam: General: Alert, Oriented x3, Cooperative, No apparent distress HEENT: Atraumatic, PERRLA, EOMI, Normocephalic Oral: Moist Mucosa Neck: Supple Lungs: Clear to auscultation, Normal air movement Cardiovascular: Regular rate, Normal S1, Normal S2, Irregular Rate, Murmur - 3/6 heard in parasternal region Abdomen: Bowel Sounds Present, Soft, Non-Distended, No Hepato-splenomegaly, Tender - dressing over the RUQ, Extremities: No edema Skin: No rashes Musculoskeletal: No Tenderness to Palpation of Joints or Extremities Lymphatic: No Cervical, Supraclavicular, or Inguinal Adenopathy Neurological: Cranial nerves II-XII grossly intact, Neuro grossly intact Psych/Mental Status: Normal Affect, Appropriate Vitals/I&O's: Vital Signs Temp Pulse Resp BP Pulse Ox 98.6 F 88 18 149/84 H 95 04/09/20 08:36 04/09/20 08:36 04/09/20 08:36 04/09/20 08:36 04/09/20 08:36 Oxygen Delivery Method Room Air Weight: 61.7 kg Body Mass Index (BMI) 26.5 Intake and Output for Last 24 Hours 04/07/20 04/08/20 04/09/20 23:59 23:59 23:59 Intake Total 1513 / 1533 2433.25 / 2633.25 250 / 250 Output Total 980 / 1180 400 / 575 250 / 250 Balance 533 / 353 2033.25 / 2058.25 0 / 0 Laboratory Results 04/09/20 06:00: WBC 14.0 H, RBC 3.24 L, Hgb 9.0 L, Hct 27.6 L, MCV 85.2, MCH 27.8, MCHC 32.6, RDW Std Deviation 44.1 H, RDW Coeff of Tino 14.0, Plt Count 316, MPV 9.4, Immature Gran % (Auto) 0.800, Neut % (Auto) 83.8 H, Lymph % (Auto) 9.4 L, [place] % (Auto) 4.7, Eos % (Auto) 0.9, Baso % (Auto) 0.4, Absolute Neuts (auto) 11.7 H, Absolute Lymphs (auto) 1.31, Nucleated RBC % 0 04/09/20 06:00: Sodium 133 L, Potassium 3.5, Chloride 101, Carbon Dioxide 27.0, Anion Gap 5, BUN 14, Creatinine 0.50 L, Estim Creat Clear Calc 31.15, Est GFR (MDRD) Af Amer 152, Est GFR (MDRD) Non-Af 125, BUN/Creatinine Ratio 27.9 H, Glucose 100, Calcium 7.7 L Current Medications Acetaminophen (Acetaminophen 325 Mg Tablet) 650 mg PO Q4H PRN PRN PRN Reason: Pain 1-10 or Fever Last Admin: 04/09/20 01:39 Dose: 650 mg Documented by: Ascorbic Acid (Ascorbic Acid 500 Mg Tablet) 500 mg PO DAILY@0800 [facility] Aspirin (Aspirin 81 Mg Tab.Chew) 81 mg PO DAILY@0800 [facility] Last Admin: 04/08/20 08:45 Dose: 81 mg Documented by: Enoxaparin Sodium (Enoxaparin 40 Mg/0.4 Ml Syringe) 40 mg SC DAILY [facility] Last Admin: 04/08/20 10:10 Dose: 40 mg Documented by: Ferrous Sulfate (Ferrous Sulfate 325 Mg Tablet) 325 mg PO 1200,1700 [facility] Last Admin: 04/08/20 18:02 Dose: 325 mg Documented by: Piperacillin Sod/Tazobactam (Sod 3.375 gm/ Sodium Chloride) 50 mls @ 12.5 mls/hr IV Q8 [facility] Last Admin: 04/09/20 05:34 Dose: 12.5 mls/hr Documented by: Sodium Chloride () 1,000 mls @ 15 mls/hr IV .Q48H [facility] Last Infusion: 04/08/20 21:04 Dose: 0 mls/hr Documented by: Lisinopril (Lisinopril 20 Mg Tablet) 20 mg PO DAILY [facility] Last Admin: 04/08/20 10:10 Dose: 20 mg Documented by: Magnesium Chloride (Magnesium Chloride 64 Mg Delay Rel.Tablet) 128 mg PO BID [facility] Last Admin: 04/08/20 21:03 Dose: 128 mg Documented by: Metoprolol Tartrate (Metoprolol Tartrate 25 Mg Tablet) 25 mg PO BID [facility] Last Admin: 04/08/20 21:03 Dose: 25 mg Documented by: Morphine Sulfate (Morphine 2 Mg/Ml Syringe) 2 - 4 mg IV Q2H PRN PRN PRN Reason: Pain Score 4-10 Last Admin: 04/06/20 16:57 Dose: 2 mg Documented by: Ondansetron HCl (Ondansetron 4 Mg/2 Ml Vial) 4 mg IV Q6H PRN PRN PRN Reason: NAUSEA Last Admin: 04/07/20 03:39 Dose: 4 mg Documented by: Pantoprazole Sodium (Pantoprazole Sodium 40 Mg Tablet) 40 mg PO DAILY [facility] Last Admin: 04/08/20 10:22 Dose: 40 mg Documented by: Sodium Chloride (0.9% Saline Lock 10 Ml Syringe) 10 - 40 ml IV UD PRN PRN Reason: SALINE FLUSH STROKE Vital Signs/Narrative: Vital Signs Temp Pulse Resp BP Pulse Ox 04/09/20 08:36 98.6 F 88 18 149/84 H 95 04/09/20 07:00 88 Medical Necessity - Tobacco Use Smoking Status: Never smoker Tobacco Use: Non-smoker Assessment/Plan All Active Problems (Last Reviewed 04/06/20 @ 21:34 by Kiesha Stephens, DEB-C) Atrial fibrillation (Acute) Acute cholecystitis (Acute) Hyponatremia (Acute) 1. POD #3 status post laparoscopic/open cholecystectomy with cholangiogram with small bowel resection for gangrenous cholecystitis with abscess Pain is controlled, wound drains removed. Completed 3 days of IV antibiotics WBC count is improved to 14.0 2. Atrial fibrillation, history of paroxysmal atrial fibrillation, [id number] score of 4 Continue on metoprolol, Eliquis. She should follow-up with cardiology and PCP within 2 weeks. 3. Tricuspid regurgitation, noted on 2D echo- 3+ tricuspid valve regurgitation/moderate pulmonary hypertension Follow-up with cardiology in the outpatient. 4. Hypomagnesemia, resolved, replaced, recheck in a.m. 5. Hypertension, controlled, continue lisinopril, metoprolol 6. Iron deficiency anemia, no signs of GI bleed, 7. DVT prophylaxis- Lovenox subcu Inpatient E&M: 32079 [facility] Hosp L2
[2020-04-09] MEDS: Aspirin 81 MG TAB.CHEW PO (09:49)
[2020-04-09] MEDS: Metoprolol Tartrate 25 MG Tablet PO (09:50)
[2020-04-09] MEDS: Pantoprazole Sodium 40 MG Tablet PO (09:51)
[2020-04-09] MEDS: Magnesium Chloride 64 MG Delay Rel.Tablet 128 MG PO (09:51)
[2020-04-09] MEDS: Enoxaparin 40 MG/0.4 ML Syringe SC (09:51)
[2020-04-09] MEDS: Lisinopril 20 MG Tablet PO (09:51)
[2020-04-09] MEDS: Ascorbic Acid 500 MG Tablet PO (09:51)
--- NOTE | 2020-04-09 11:44 | DCINST_ITS ---
Discharge Diet: Light diet - advance as tolerated Discharge Activity: Return to Normal Activity, May Shower Lifting Restrictions: 20 lbs Additional Activity Instructions:: Pain medication may cause nausea. You should typically eat light foods as you take your pain medications. Pain medication may also cause constipation. If this is a problem for you, please discuss with your doctor. Call your doctor if your incision/area has: Continuous Slow Oozing, Sudden Increased Bleeding, Increased Pain/ Swelling, Increased Redness, Foul Smelling Discharge, Fever of 101 or Higher Call your doctor if you observe: Fever of 101 or Higher Suture Line Care: Avoid Pulling/Pushing, Avoid Pinching/Bending Change Dressing in (Days):: 1 - Change gauze as needed. Allergies/Adverse Reactions: Allergies No Known Allergies Allergy (Verified 04/06/20 09:56) Medications to take at Discharge Calcium (Elemental) [Os-Gibson 500] 600 mg PO DAILY 01/14/18 Cholecalciferol (VIT D3) [Vitamin D3] 1 tab PO DAILY 01/14/18 Potassium (Otc) [Potassium OTC] 99 mg PO DAILY 01/14/18 Aspirin [Aspirin, Baby] 81 mg PO DAILY 02/27/20 Vitamin E 1 tab PO DAILY 02/27/20 lisinopril 20 mg tablet 20 mg PO DAILY #90 tab 03/30/20 Acetaminophen [Tylenol] 1,000 mg PO Q8 PRN 04/01/20 Beta-Carotene [Beta Carotene] 10,000 unit PO DAILY 04/01/20 Cyanocobalamin (Vitamin B-12) [Vitamin B-12] 1,000 mcg PO DAILY 04/01/20 Magnesium Oxide [Magnesium] 500 mg PO DAILY 04/01/20 Ubidecarenone [Coq-10] 100 mg PO DAILY 04/01/20 Vitamin O 1 drp PO DAILY 04/01/20 Zinc 50 mg PO DAILY 04/01/20 Primary Care Physician: Abundio Juarez, [Primary Care Provider] - Please follow up with your Primary Care Physician in: Follow up to discuss A fib and anticoagulation Test Results: Test results from this visit will be discussed in further detail at your follow- up appointment, if applicable. Please Follow Up With: Felix Hough MD When: Please call to schedule 1 week appt for staple removal. [phone]
--- NOTE | 2020-04-09 11:46 | PCM.DC.SUM ---
Discharge Date and Diagnosis - Problem List Patient Problems: Active and Suspected Problems (Last Reviewed 04/06/20 @ 21:34 by FESTUS Lunsford) Atrial fibrillation (Acute) Acute cholecystitis (Acute) Hyponatremia (Acute) Date of Admission: 04/06/20 Date of Discharge: 04/09/20 - Primary Discharge Diagnosis Acute Problems: Active Problems (Last Reviewed 04/06/20 @ 21:34 by FESTUS Lunsford) Atrial fibrillation (Acute) Acute cholecystitis (Acute) Hyponatremia (Acute) - Secondary Discharge Diagnosis Chronic Problems: Chronic Problems (Last Reviewed 04/06/20 @ 21:34 by FESTUS Lunsford) Heart murmur (Chronic) High blood pressure (Chronic) Hospital Course and Treatment Imaging Results: Clinical Impression(s) from Imaging Studies Cholangiogram 04/06/20 11:00 IMPRESSION: Unremarkable intraoperative cholangiogram. Electronically Signed: Delvin Paz MD at 9:32 EST , Service support , Operations: cholecystecomy Procedures: None Summary of Care Provided: The patient is a 80 year old F came for elective cholecystectomy and was found to have a gangrenous gallbladder requiring an open cholecystectomy and small bowel resection. The patient was brought back up to the floor after surgery and admitted for observation. Her KARIE remained serosanguineous and had minimal output. She was slowly started on a diet when she started passing flatus. Her simon were removed from her incision and her white count was coming down nicely and she was very comfortable and tolerating regular diet. Once she was tolerating regular diet and was comfortable on no pain medication she was discharged home in stable condition. She will follow-up with me next week for staple removal. The patient was also found to have A. fib RVR during her admission and the hospitalist were consulted. They started her on Eliquis for anticoagulation. I recommended that the patient follow-up with her PCP to discuss if they would like to continue this anticoagulation. Patient Problems: Active and Suspected Problems (Last Reviewed 04/06/20 @ 21:34 by FESTUS Lunsford) Atrial fibrillation (Acute) Acute cholecystitis (Acute) Hyponatremia (Acute) - Physical Exam Vitals/I&O's: Vital Signs Temp Pulse Resp BP Pulse Ox 98.1 F 95 16 142/76 H 95 04/09/20 10:42 04/09/20 10:42 04/09/20 10:42 04/09/20 10:42 04/09/20 10:42 Oxygen Delivery Method Room Air Weight: 136 lb 0.403 oz Body Mass Index (BMI) 26.5 Intake and Output for Last 24 Hours 04/07/20 04/08/20 04/09/20 23:59 23:59 23:59 Intake Total 1513 / 1533 2433.25 / 2633.25 300 / 300 Output Total 980 / 1180 400 / 575 250 / 250 Balance 533 / 353 2033.25 / 2058.25 50 / 50 Laboratory Results 04/09/20 06:00: WBC 14.0 H, RBC 3.24 L, Hgb 9.0 L, Hct 27.6 L, MCV 85.2, MCH 27.8, MCHC 32.6, RDW Std Deviation 44.1 H, RDW Coeff of Tino 14.0, Plt Count 316, MPV 9.4, Immature Gran % (Auto) 0.800, Neut % (Auto) 83.8 H, Lymph % (Auto) 9.4 L, [place] % (Auto) 4.7, Eos % (Auto) 0.9, Baso % (Auto) 0.4, Absolute Neuts (auto) 11.7 H, Absolute Lymphs (auto) 1.31, Nucleated RBC % 0 04/09/20 06:00: Sodium 133 L, Potassium 3.5, Chloride 101, Carbon Dioxide 27.0, Anion Gap 5, BUN 14, Creatinine 0.50 L, Estim Creat Clear Calc 31.15, Est GFR (MDRD) Af Amer 152, Est GFR (MDRD) Non-Af 125, BUN/Creatinine Ratio 27.9 H, Glucose 100, Calcium 7.7 L Current Medications Acetaminophen (Acetaminophen 325 Mg Tablet) 650 mg PO Q4H PRN PRN PRN Reason: Pain 1-10 or Fever Last Admin: 04/09/20 01:39 Dose: 650 mg Documented by: Ascorbic Acid (Ascorbic Acid 500 Mg Tablet) 500 mg PO DAILY@0800 [facility] Last Admin: 04/09/20 09:51 Dose: 500 mg Documented by: Aspirin (Aspirin 81 Mg Tab.Chew) 81 mg PO DAILY@0800 [facility] Last Admin: 04/09/20 09:49 Dose: 81 mg Documented by: Enoxaparin Sodium (Enoxaparin 40 Mg/0.4 Ml Syringe) 40 mg SC DAILY [facility] Last Admin: 04/09/20 09:51 Dose: 40 mg Documented by: Ferrous Sulfate (Ferrous Sulfate 325 Mg Tablet) 325 mg PO 1200,1700 [facility] Last Admin: 04/08/20 18:02 Dose: 325 mg Documented by: Piperacillin Sod/Tazobactam (Sod 3.375 gm/ Sodium Chloride) 50 mls @ 12.5 mls/hr IV Q8 [facility] Last Infusion: 04/09/20 09:34 Dose: Infused Documented by: Sodium Chloride () 1,000 mls @ 15 mls/hr IV .Q48H [facility] Last Infusion: 04/08/20 21:04 Dose: 0 mls/hr Documented by: Lisinopril (Lisinopril 20 Mg Tablet) 20 mg PO DAILY [facility] Last Admin: 04/09/20 09:51 Dose: 20 mg Documented by: Magnesium Chloride (Magnesium Chloride 64 Mg Delay Rel.Tablet) 128 mg PO BID [facility] Last Admin: 04/09/20 09:51 Dose: 128 mg Documented by: Metoprolol Tartrate (Metoprolol Tartrate 25 Mg Tablet) 25 mg PO BID [facility] Last Admin: 04/09/20 09:50 Dose: 25 mg Documented by: Morphine Sulfate (Morphine 2 Mg/Ml Syringe) 2 - 4 mg IV Q2H PRN PRN PRN Reason: Pain Score 4-10 Last Admin: 04/06/20 16:57 Dose: 2 mg Documented by: Ondansetron HCl (Ondansetron 4 Mg/2 Ml Vial) 4 mg IV Q6H PRN PRN PRN Reason: NAUSEA Last Admin: 04/07/20 03:39 Dose: 4 mg Documented by: Pantoprazole Sodium (Pantoprazole Sodium 40 Mg Tablet) 40 mg PO DAILY [facility] Last Admin: 04/09/20 09:51 Dose: 40 mg Documented by: Sodium Chloride (0.9% Saline Lock 10 Ml Syringe) 10 - 40 ml IV UD PRN PRN Reason: SALINE FLUSH Discharge Diet: Light diet - advance as tolerated Discharge Activity: Return to Normal Activity, May Shower Additional Activity Instructions:: Pain medication may cause nausea. You should typically eat light foods as you take your pain medications. Pain medication may also cause constipation. If this is a problem for you, please discuss with your doctor. Call your doctor if your incision/area has: Continuous Slow Oozing, Sudden Increased Bleeding, Increased Pain/ Swelling, Increased Redness, Foul Smelling Discharge, Fever of 101 or Higher Call your doctor if you observe: Fever of 101 or Higher Suture Line Care: Avoid Pulling/Pushing, Avoid Pinching/Bending Change Dressing in (Days):: 1 - Change gauze as needed. Home Medications: Medications to take at Discharge Calcium (Elemental) [Os-Gibson 500] 600 mg PO DAILY 01/14/18 Cholecalciferol (VIT D3) [Vitamin D3] 1 tab PO DAILY 01/14/18 Potassium (Otc) [Potassium OTC] 99 mg PO DAILY 01/14/18 Aspirin [Aspirin, Baby] 81 mg PO DAILY 02/27/20 Vitamin E 1 tab PO DAILY 02/27/20 lisinopril 20 mg tablet 20 mg PO DAILY #90 tab 03/30/20 Acetaminophen [Tylenol] 1,000 mg PO Q8 PRN 04/01/20 Beta-Carotene [Beta Carotene] 10,000 unit PO DAILY 04/01/20 Cyanocobalamin (Vitamin B-12) [Vitamin B-12] 1,000 mcg PO DAILY 04/01/20 Magnesium Oxide [Magnesium] 500 mg PO DAILY 04/01/20 Ubidecarenone [Coq-10] 100 mg PO DAILY 04/01/20 Vitamin O 1 drp PO DAILY 04/01/20 Zinc 50 mg PO DAILY 04/01/20 Apixaban [Eliquis] 2.5 mg PO BID 30 Days #60 tab 04/09/20 Following Prescriptions Were Given to Patient: Apixaban [Eliquis] 2.5 mg PO BID 30 Days #60 tab Transmission Status: Received by [facility] Primary Care Physician: Abundio Juarez DO [Primary Care Provider] - Please follow up with your Primary Care Physician in: Follow up to discuss A fib and anticoagulation Please Follow Up With: Felix Hough MD When: Please call to schedule 1 week appt for staple removal. [phone] Medical Necessity - Tobacco Use Smoking Status: Never smoker Tobacco Use: Non-smoker Meaningful Use Info Meaningful Use Diagnoses (Choose all that apply): None applicable
--- NOTE | 2020-04-09 13:01 | CASEMGMT ---
GILDA SRINIVASAN in to update patient and son in law Preston regarding prescription for Eliquis. Preston prefers medication be filled here at [facility]. GILDA SRINIVASAN verified that hospitalist sent script to [facility]. GILDA SRINIVASAN sent Eliquis savings card to [facility]. GILDA SRINIVASAN provided Preston with Application for Financial Assist through [employer] for the Eliquis. Preston voiced understanding, no further questions or concerns at this time.
[2020-04-09] MEDS: Ferrous Sulfate 325 MG Tablet PO (14:43)
== END 2020-04-09 15:30 | disposition home or self-care (01) | DRG 415 ==
LOC: MS3 16:48 → SDC 16:57 → MS3 16:57
PROVIDERS: Anesthesiology; Nurse Practitioner Family; Admitting Provider Surgery; PCP Family Medicine; Referring Provider Surgery; Visit Provider Internal Medicine
PROC: 0FT40ZZ Resection of Gallbladder, Open Approach (ICD-10-PCS; CPT 47610; principal; 2020-04-06 10:40)
DX: K80.00 Calculus of gallbladder with acute cholecystitis without obstruction (principal); E87.1 Hypo-osmolality and hyponatremia; K82.A1 Gangrene of gallbladder in cholecystitis; K66.0 Peritoneal adhesions (postprocedural) (postinfection); I48.0 Paroxysmal atrial fibrillation; I10 Essential (primary) hypertension; I27.20 Pulmonary hypertension, unspecified; I36.1 Nonrheumatic tricuspid (valve) insufficiency; E83.42 Hypomagnesemia; D50.9 Iron deficiency anemia, unspecified; R01.1 Cardiac murmur, unspecified; Z53.31 Laparoscopic surgical procedure converted to open procedure; Z20.822 Contact with and (suspected) exposure to COVID-19; Z79.82 Long term (current) use of aspirin; Z79.899 Other long term (current) drug therapy
CPT/HCPCS: 36415; 74300; 76000; 80048; 80053; 82728; 83540; 83550; 83735; 84443; 85025; 85027; 87426; 88304; 88305; 88307; 93005; 93306; 99251; C9803; J7030; J7040; J7050; J7120; Q9957; A4216; C8929; G0463; J2405; J2916

== ENCOUNTER → 2021-08-03 | Outpatient (CLI) | payer SELFPAY ==
--- NOTE | 2021-08-03 10:00 | RAD_ITS ---
STUDY: X-RAY - PELVIS AND RIGHT HIP REASON FOR EXAM: Female, 81 years old. Technologist Notes PAIN IN RIGHT HIP/PELVIS INTO GROIN AREA RADIATING INTO RIGHT LEG FOR ABOUT 7 WEEKS PER PATIENT. NO KNOWN INJURY. RIGHT GROIN/LEG PAIN TECHNIQUE: XR Hip Unilateral with Pelvis when performed; 2-3 Views COMPARISON: None. FINDINGS: There is a non-specific bowel gas pattern. Normal visualized soft tissue structures. There are degenerative changes of the lumbar spine. Normal bilateral iliac wings, sacroiliac joints and visualized sacrum. Normal bilateral superior and inferior pubic rami. Normal pubic symphysis. Normal bilateral ischial tuberosities. 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 There are atherosclerotic vascular calcifications. RAD/HIP, UNI W/ Pelvis 2-3 Views IMPRESSION: No acute findings. Electronically Signed: Ezio Kelley MD at 16:52 EDT ,
[2021-08-03 12:26] LABS: ALB/GLOB Ratio 0.8 RATIO (0.9-2.4); AST(SGOT) 32 U/L (15-37); Alanine Aminotransfer ALT/SGPT 27 U/L (13-56); Albumin, Serum 3.4 g/dL (3.2-5.0); Alkaline Phosphatase 97 U/L (45-117); Anion Gap 7 (5-15); BUN 14 mg/dL (7-18); BUN/Creat Ratio 18.5 RATIO (10-20); Calcium,Total 9.2 mg/dL (8.5-10.1); Chloride 102 mmol/L (98-107); Creatinine, Serum 0.76 mg/dL (0.55-1.02); EST Glomerular Filtration Rate 78 mL/min (>60); Est Glom Filt Rate - Afr Amer 94 mL/min (>60); Globulin 4.1 g/dL (2.2-4.2); Glucose 97 mg/dL (74-106); Potassium 4.3 mmol/L (3.5-5.1); Protein, Total 7.5 g/dL (6.4-8.2); Sodium Level 138 mmol/L (136-145)
[2021-08-03 12:50] LABS: Absolute Lymphocyte Count 1.55 X10^3/uL (0.83-4.51); Absolute Neutrophil Count 4.7 X10^3/uL (2.0-7.7); Basophil# 0.07 X10^3/uL; Eosinophil# 0.18 X10^3/uL; Eosinophils% 2.5 % (0-5); Hematocrit 36.8 % (37-47); Hemoglobin 11.7 g/dL (12.0-15.0); Lymphocyte # 1.55 X10^3/ul (0.83-4.51); Lymphocyte % 21.5 % (19-41); Mean Corp Hgb Conc 31.8 g/dL (32-36); Mean Corpuscular Hgb 29.5 pg (27.0-32.0); Mean Corpuscular Volume 92.7 fL (81-99); Mean Platelet Vol. 10.7 fl (6.2-12.0); Monocyte# 0.65 X10^3/uL; NRBC Flagged by Analyzer 0 % (0-5); Neutrophil # 4.73 X10^3/uL (2.7-7.7); Neutrophil % 65.6 % (47-70); Platelet Count 228 K/mm3 (150-450); RBC Distribution Width CV 14.3 % (11.6-14.6); RBC Distribution Width SD 48.9 fl (35.1-43.9); Red Blood Count 3.97 M/mm3 (4.2-5.4); White Blood Count 7.2 K/mm3 (4.4-11.0)
== END | disposition home or self-care (01) ==
PROVIDERS: PCP Family Medicine; Referring Provider Internal Medicine; Visit Provider Internal Medicine
DX: I10 Essential (primary) hypertension (principal); M79.604 Pain in right leg; R10.31 Right lower quadrant pain
CPT/HCPCS: 36415; 73502; 80053; 85025

== ENCOUNTER → 2024-04-02 | Outpatient (CLI) | payer SELFPAY ==
[2024-04-02 12:27] LABS: Absolute Neutrophil Count 3.4 X10^3/uL (2.0-7.7); Basophil# 0.08 X10^3/uL; Basophil% 1.3 % (0-1); Eosinophil# 0.26 X10^3/uL; Eosinophils% 4.2 % (0-5); Hematocrit 38.9 % (37-47); Hemoglobin 12.6 g/dL (12.0-15.0); Lymphocyte % 29.4 % (19-41); Mean Corp Hgb Conc 32.4 g/dL (32-36); Mean Corpuscular Hgb 30.1 pg (27.0-32.0); Mean Corpuscular Volume 92.8 fL (81-99); Mean Platelet Vol. 12.3 fl (6.2-12.0); Monocyte# 0.58 X10^3/uL; Monocyte% 9.5 % (0-10); NRBC Flagged by Analyzer 0 % (0-5); Neutrophil % 55.4 % (47-70); Platelet Count 111 K/mm3 (150-450); RBC Distribution Width CV 13.4 % (11.6-14.6); RBC Distribution Width SD 45.6 fl (35.1-43.9); Red Blood Count 4.19 M/mm3 (4.2-5.4); White Blood Count 6.1 K/mm3 (4.4-11.0)
[2024-04-02 12:59] LABS: Anion Gap 10 (5-15); BUN 17 mg/dL (4-19); BUN/Creat Ratio 23.1 RATIO (10-20); Calcium 9.1 mg/dL (7.6-11.0); Carbon Dioxide 27.6 mmol/L (22.0-29.0); Chloride 101 mmol/L (96-108); Creatinine, Serum 0.7 mg/dL (0.6-1.0); EST Glomerular Filtration Rate 79 (>60); Glucose 95 mg/dL (70-99); Potassium 4.5 mmol/L (3.3-5.1); Sodium Level 139 mmol/L (133-145)
== END | disposition home or self-care (01) ==
PROVIDERS: PCP Family Medicine; Referring Provider Family Medicine; Visit Provider Family Medicine
DX: I48.91 Unspecified atrial fibrillation (principal)
CPT/HCPCS: 36415; 80048; 85025